=== PATIENT | male | born 1940 | race Caucasian/White ===

== ENCOUNTER → 2017-10-05 07:37 | Outpatient (CLI) | payer MEDICARE, SELFPAY ==
[2017-09-06 11:06] LABS: Hemoglobin 12.3 g/dl (13.0-16.5); Mean Corp Hgb Conc 34.2 g/gl (32-36); Mean Corpuscular Hgb 30.9 pg (27.0-32.0); Mean Corpuscular Volume 90.5 fL (80-94); Mean Platelet Vol. 10.5 fl (6.2-12.0); Platelet Count 105 K/mm3 (150-450); RBC Distribution Width CV 14.1 % (11.6-14.6); RBC Distribution Width SD 46.5 fl (35.1-43.9); Red Blood Count 3.98 M/mm3 (4.6-6.2)
[2017-09-06 11:08] LABS: Scan Indicated on CBC? Y/N NO
== END ==
PROVIDERS: Family Provider Internal Medicine; PCP Internal Medicine; Visit Provider Surgery
DX: Z01.810 Encounter for preprocedural cardiovascular examination (principal); Z53.9 Procedure and treatment not carried out, unspecified reason
CPT/HCPCS: 36415; 85027; 93005

== ENCOUNTER 2017-10-13 10:00 | Day surgery (SDC) | payer MEDICARE, SELFPAY ==
[2017-10-13 10:21] VITALS: BP 143/84; PULSE 75; RESP 16; TEMP 36.9; O2SAT 100; BMI 23.9
--- NOTE | 2017-10-13 11:30 | RAD_ITS ---
STUDY: ERCP. REASON FOR EXAM: Male, 77 years old. History of choledocholithiasis. FLUOROSCOPY TIME (if supplied): (12:28) minutes/seconds TECHNIQUE: An ERCP was performed by the surgeon. Contrast was injected into the common bile duct. COMPARISON: None. FINDINGS: There is dilatation of the common bile duct as well as the central intrahepatic biliary ducts. Filling defects are seen within the common bile duct suggestive of retained stones. No contrast is seen within the duodenum. RAD/ERCP Biliary Only IMPRESSION: Dilated common bile duct and visualized central intrahepatic biliary ducts with the filling defects in the common bile duct. This is in keeping with retained stones. Electronically Signed: Nicola Vergara MD at 14:29 EDT Tel [phone], Service support ,
[2017-10-13 12:41] VITALS: BP 119/96; BP 143/84; PULSE 82; RESP 16; TEMP 36.2; O2SAT 99
[2017-10-13 12:45] VITALS: BP 112/99; BP 143/84; PULSE 84; RESP 16; O2SAT 99
[2017-10-13 13:00] VITALS: BP 113/72; BP 143/84; PULSE 66; RESP 16; O2SAT 100
--- NOTE | 2017-10-13 13:03 | PCM.DC ---
You will use the following diet at home:: No restrictions Your food should be the consistency of: Regular Discharge Activity: Return to Normal Activity Call your doctor if you observe: Fever of 101 or Higher, Uncontrolled pain Allergies/Adverse Reactions: Allergies No Known Allergies Allergy (Verified 10/11/17 15:16) Medications to take at Discharge Pediatric Multivit Comb No.101 [Gummy] 1 ea PO DAILY 09/02/17 calcium carbonate 600 mg calcium (1,500 mg) tablet 600 mg PO QDAY tab 10/11/17 ergocalciferol (vitamin D2) 2,500 unit capsule 2,500 unit PO QDAY 10/11/17 Acetaminophen [Tylenol Extra Strength] 500 - 1,000 mg PO Q6H PRN PRN 10/12/17 Ondansetron [Zofran Odt] 4 mg PO Q8H PRN PRN 10/13/17 Prochlorperazine Maleate [Compazine] 10 mg PO Q6H PRN 10/13/17 Primary Care Physician: Andra Dasilva MD [Primary Care Provider] -
[2017-10-13 13:13] VITALS: BP 124/81; BP 143/84; PULSE 61; RESP 16; TEMP 36.2; O2SAT 100
--- NOTE | 2017-10-13 13:33 | PCM.OPRPT ---
Problem List (1) Cholelithiasis with choledocholithiasis Status: Acute Report of Operation Date of Procedure: 10/13/17 Pre-Operative Diagnosis: Common bile duct filling defect Post-Operative Diagnosis: Choledocholithiasis Surgery/Procedure Performed:: ERCP with sphincterotomy and stone removal Specimen's removed: None Description of Procedure: After describing the risks of the procedure as well as the procedure in detail informed consent was obtained. Patient was brought to the operating room and general anesthesia was induced. The patient was then placed in a semi-prone position. Next, the side-viewing endoscope was placed into the mouth and down into the stomach and advanced into the duodenum. The ampulla was located. A sphinctertome was used to cannulate the common bile duct and location was confirmed on fluoroscopy. The guidewire was placed in the common bile duct and using sphincterotome and electrocautery a sphincterotomy was performed. Hemostasis was good. Next the sphincterotome was removed leaving the guidewire in the common bile duct. A balloon was then introduced over the guidewire and the common bile duct and several sweeps were performed. There appear to be a very large stone in the distal common bile duct. This was freely mobile. I was unable to remove the stone with the balloon. I placed the trapezoid basket into the bile duct and grasped the stone. This was unable to be removed fully so we did a lithotripsy mechanically. There were several large fragments of the stone which were removed with the basket. Next a 15 mm balloon was placed into the bile duct and several sweeps were performed to clear the debris and leftover stone material. There were several large fragments of stone as well as small fragments that were removed from the bile duct. There was free flow of bile the end of the procedure with no extravasation of contrast. Once the duct was adequately clear of stones, the balloon was removed as well as the guidewire. The side-viewing scope was then withdrawn back into the stomach and the stomach was suctioned. Next, the scope was removed. The patient was taken to PACU in stable condition. The patient tolerated the procedure well. - Admit VTE Documentation VTE Mechan Device Prophylaxis: SCD's
== END 2017-10-13 13:53 | disposition home or self-care (01) ==
LOC: EN 10:01 → AC 10:03
PROVIDERS: Family Provider Internal Medicine; PCP Internal Medicine; Visit Provider Surgery
PROC: (CPT 43260; principal; 2017-10-13 11:00)
DX: K80.51 Calculus of bile duct without cholangitis or cholecystitis with obstruction (principal); I10 Essential (primary) hypertension; R93.2 Abnormal findings on diagnostic imaging of liver and biliary tract; K82.8 Other specified diseases of gallbladder
CPT/HCPCS: 43262; 43264; 74328; 76000; J7120; C1726

== ENCOUNTER 2017-10-19 12:33 | Observation (INO) | payer MEDICARE, SELFPAY ==
[2017-10-19] VITALS (8 sets, daily range): BP systolic 129–163; BP diastolic 71–98; PULSE 60–72; RESP 14–18; TEMP 36.4–37.5; O2SAT 95–100; BMI 23.9; BMI 22.6
--- NOTE | 2017-10-19 | IMM_PTH ---
PATIENT: NYA ALATORRE LOC: MS3 U#:[id number] AGE/SX: 77/M ROOM: TX316 RE10/19/[address]: Dr. Kaiden Erazo MD : 1940 BED: 1 DIS: 10/20/2017 SPEC #: [id number] RECD: 10/20/17 11:17 STATUS: JUAN ALBERTO REQ #: [id number] COLBY: 10/19/17 00:[address]: Kaiden Erazo DEPT: IMMUNOHISTOCHEMISTRY RECD BY: Bernadine Trivedi ENTERED: 10/20/17 11:19 SP TYPE: IMMUNO OTHR DR: Dr. Andra Dsailva MD Tissues: Gallbladder, NOS Procedures: NAPSIN A (add) HEP PAR (add) KI-67 (add) P53 (add) TTF1 (add) Pankeratin (add) GATA3 (add) CK7 (initial) PHYSICIAN & INSTITUTION [place] [phone] SPECIMEN INFORMATION: Tissue Source: Gallbladder biopsy Clinical Info: Choledocholithiasis, porcelain gallbladder Specimen Number: [id number] CPT code: 95105, 42651 x7 METHODOLOGY: Deparaffinized sections of prefer/formalin-fixed tissue or PAP/DQ stained slides are incubated with monoclonal/polyclonal antibodies/oligonucleotide probes. Localization is made via biotin free immunoperoxidase method. Appropriate controls are performed and reacted as expected. Results on target cell population are indicated in the following table: RESULTS: ANTIBODY / CLONE RESULT CK7 (OV-TL12/30) positive AE1-3 (AE1/AE3/PCK26) positive GATA3 (L50-823) negative TTF-1 (8G7G3/1) negative Napsin A (Rabbit Polyclonal) negative P53 (DO-7) negative Ki-67 (30-9) negative HepPar (OCh1E5) negative These tests were developed and their performance characteristics determined by [facility]. They may not have been cleared or approved by the U.S. Food and Drug Administration. The FDA has determined that such clearance or approval is not necessary. INTERPRETATION: Gallbladder, biopsy: Consistent with ductular proliferation of liver. AM:jh 10/22/17
--- NOTE | 2017-10-19 | GALL_PTH ---
PATIENT: NYA ALATORRE LOC: MS3 U#:[id number] AGE/SX: 77/M ROOM: VT316 RE10/19/[address]: Dr. Kaiden Erazo MD : 1940 BED: 1 DIS: 10/20/2017 SPEC #: [id number] RECD: 10/19/17 11:15 STATUS: JUAN ALBERTO REKendrick #: [id number] COLBY: 10/19/17 00:[address]: Kaiden Erazo DEPT: SURGICAL PATHOLOGY RECD BY: Bernadine Trivedi ENTERED: 10/19/17 11:42 SP TYPE: EMY RAGSD[place] DR: Dr. Andra Dasilva MD Tissues: Gallbladder, NOS Procedures: PAS with Diastase (control) Frozen Section (charge) Special Stain Group II PAS Stain (control) Surgery Specimen Level IV Frozen (no charge) HEADER OPERATION: Exploratory laparoscopy, gallbladder biopsy PRE-OP DIAGNOSIS: Choledocholithiasis, porcelain gallbladder TISSUE SUBMITTED: Gallbladder biopsy sent to path 1111 FROZEN SECTION DIAGNOSIS Gallbladder, core biopsy: Benign glandular tissue adjacent to the liver parenchymal tissue. No obvious carcinoma is noted. SJ:jh 10/19/17 MICROSCOPIC DIAGNOSIS Gallbladder, core biopsy: Focal benign hepatic subcapsular ductular proliferation. Focal minimal chronic inflammation of hepatic parenchyma. Focal elastosis and fibrosis, inter hepato-cystic tissue. No evidence of malignancy. See comment. AM:jh 10/20/17 COMMENT Fragments of reactive hepatic parenchyma is adherent to the tissue and contains benign appearing subcapsular ductular proliferation. There is focal fibrosis and elastosis of tissue between the gallbladder wall and liver parenchyma. There is no evidence of malignancy. The tissue is insufficient for evaluation of gallbladder or hepatic parenchymal disease. Excisional biopsies and or cholecystectomy is recommended if clinically indicated.. Immunohistochemistry ([id number]) supports the above diagnosis and highlights hepatic subcapsular benign appearing ductular proliferation. PAS with and without diastase with matched controls were used in the evaluation of this case. Case has been reviewed in consultation with Dr. Kramer who concurs with the above diagnosis. IDC:SANDRO MICROSCOPIC DESCRIPTION Slides are reviewed. GROSS DESCRIPTION Received fresh for frozen section diagnosis labeled with the patient's name is a specimen designated gallbladder, possible cancer. The specimen consists of an elongated piece of batista-white soft tissue measuring 1.1 cm in length and 0.1 cm in diameter. The entire specimen is submitted for frozen section diagnosis in one cassette. / SANDRO:jh 10/19/17 TC:5 CPT: 01645, 82933, 09457 x2
[2017-10-19 09:36] LABS: Hematocrit 35.6 % (40-54); Hemoglobin 12.2 g/dl (13.0-16.5); Mean Corp Hgb Conc 34.3 g/gl (32-36); Mean Corpuscular Hgb 31.5 pg (27.0-32.0); Mean Platelet Vol. 10.6 fl (6.2-12.0); Platelet Count 98 K/mm3 (150-450); RBC Distribution Width CV 13.1 % (11.6-14.6); RBC Distribution Width SD 43.2 fl (35.1-43.9); Red Blood Count 3.87 M/mm3 (4.6-6.2); White Blood Count 4.4 K/mm3 (4.4-11.0)
[2017-10-19 09:37] LABS: Scan Indicated on CBC? Y/N NO
[2017-10-19] MEDS: Bupivacaine Mpf 0.5% 30 ML VIAL (11:49)
[2017-10-19] MEDS: 0.9% Normal Saline 1,000 ML 75 ML IV (13:33)
--- NOTE | 2017-10-19 16:18 | PCM.OPRPT ---
Problem List (1) Cholelithiasis with choledocholithiasis Status: Acute Report of Operation Date of Procedure: 10/19/17 Pre-Operative Diagnosis: Cholelithiasis and choledocholithiasis Post-Operative Diagnosis: Severely inflamed gallbladder, possible mass Surgery/Procedure Performed:: Exploratory laparoscopy with gallbladder biopsy Specimen's removed: Gallbladder biopsy Description of Procedure: The patient was brought back to the operating room and general anesthesia was induced. The abdomen was prepped and draped in the usual sterile fashion. An incision was made inferior to the umbilicus and deepened to the fascia. The fascia was grasped and elevated. The fascia was incised and the posterior rectus sheath and peritoneum were elevated and incised. A finger sweep was performed and a port was placed in the abdomen. The abdomen was insufflated to 14 mmHg. A scope was placed through this port and the abdomen was inspected. A subxiphoid 5 mm port was placed under direct visualization. The patient's right upper quadrant was severely inflamed and adherent. The anterior edge of the liver was being pulled down toward the gallbladder. I did see what appeared to be the dome of the gallbladder and I performed a core needle biopsy with the Boo-Cut biopsy needle and sent this for frozen. He came back as inflammation. I then decided to take down some of the omentum that was covering the gallbladder. I used the harmonic scalpel to remove some of the omentum. I left the adherent omentum on the gallbladder and remove what I could. I worked my way down until I encountered the duodenum and stomach tightly adherent to the gallbladder. At this point I asked Dr. Cardoso to take a look as well and he agreed that the procedure should be aborted for risk of injury to the stomach or small bowel the patient to be transferred to tertiary care center. I agree as if this is malignancy he would need liver bed resection, possible gastrectomy, and possible Whipple. At that point I clearly saw the duodenum and stomach and neither appear to be injured. I did leave a TIMOTHY drain in case an occult injury was performed. Next the patient's abdomen was desufflated and the anterior fascia was closed with a [id number] 0 Vicryl suture. The other incisions were anesthetized with Marcaine and closed with interrupted 4-0 Monocryl sutures, Steri-Strips and bandages. The patient tolerated the procedure well. He will be admitted for short-term observation tonight and discharge home tomorrow with a drain in place and told to follow-up with Dr. Kirkpatrick at [facility] for further surgery. - Admit VTE Documentation VTE Mechan Device Prophylaxis: SCD's
--- NOTE | 2017-10-19 16:25 | OP.PCM_ITS ---
Problem List (1) Cholelithiasis with choledocholithiasis Status: Acute Report of Operation Date of Procedure: 10/19/17 Pre-Operative Diagnosis: Cholelithiasis and choledocholithiasis Post-Operative Diagnosis: Severely inflamed gallbladder, possible mass Surgery/Procedure Performed:: Exploratory laparoscopy with gallbladder biopsy Specimen's removed: Gallbladder biopsy Description of Procedure: The patient was brought back to the operating room and general anesthesia was induced. The abdomen was prepped and draped in the usual sterile fashion. An incision was made inferior to the umbilicus and deepened to the fascia. The fascia was grasped and elevated. The fascia was incised and the posterior rectus sheath and peritoneum were elevated and incised. A finger sweep was performed and a port was placed in the abdomen. The abdomen was insufflated to 14 mmHg. A scope was placed through this port and the abdomen was inspected. A subxiphoid 5 mm port was placed under direct visualization. The patient's right upper quadrant was severely inflamed and adherent. The anterior edge of the liver was being pulled down toward the gallbladder. I did see what appeared to be the dome of the gallbladder and I performed a core needle biopsy with the Boo-Cut biopsy needle and sent this for frozen. He came back as inflammation. I then decided to take down some of the omentum that was covering the gallbladder. I used the harmonic scalpel to remove some of the omentum. I left the adherent omentum on the gallbladder and remove what I could. I worked my way down until I encountered the duodenum and stomach tightly adherent to the gallbladder. At this point I asked Dr. Cardoso to take a look as well and he agreed that the procedure should be aborted for risk of injury to the stomach or small bowel the patient to be transferred to tertiary care center. I agree as if this is malignancy he would need liver bed resection , possible gastrectomy, and possible Whipple. At that point I clearly saw the duodenum and stomach and neither appear to be injured. I did leave a TIMOTHY drain in case an occult injury was performed. Next the patient's abdomen was desufflated and the anterior fascia was closed with a [id number] 0 Vicryl suture. The other incisions were anesthetized with Marcaine and closed with interrupted 4-0 Monocryl sutures, Steri-Strips and bandages. The patient tolerated the procedure well. He will be admitted for short-term observation tonight and discharge home tomorrow with a drain in place and told to follow-up with Dr. Kirkpatrick at [facility] for further surgery. - Admit VTE Documentation VTE Mechan Device Prophylaxis: SCD's
--- NOTE | 2017-10-19 16:26 | CHAPLAIN ---
Type of Pastoral Visit _x__ Initial Visit ___ Follow-up Visit ___ On-call Visit ___ General Patient Visit ___ Spiritual Assessment ___ Family Conference ___ Bereavement ___ Rapid Response ___ Code Blue ___ Other (describe below) Pastoral Care Referral From _x__ Patient ___ Family ___ Nurse ___ Physician ___ Glass Cleaning Machine Tender ___ Fitting Room Operator ___ Other (describe below) Sacrament/Intervention _x__ Active listening ___ Anointing ___ Amish ___ Bereavement ___ Communion ___ Caitlyn exploration ___ ___ Life review _x__ Prayer ___ Reconciliation ___ Sacrament of Sick _x__ Supportive presence ___ Wedding ___ Other (describe below) Pastoral Comments
[2017-10-20 01:58] VITALS: BP 161/97; PULSE 75; RESP 16; TEMP 36.7; O2SAT 96
[2017-10-20] MEDS: 0.9% Normal Saline 1,000 ML 75 ML IV (02:05)
[2017-10-20 05:47] LABS: Absolute Lymphocyte Count 0.61 X10^3/ul (0.83-4.51); Absolute Neutrophil Count 5.8 X10^3/uL (2.0-7.7); Eosinophil# 0.02 X10^3/uL; Eosinophils% 0.3 % (0-5); Hematocrit 34.1 % (40-54); Hemoglobin 12.1 g/dl (13.0-16.5); Lymphocyte # 0.61 X10^3/ul (4.0); Lymphocyte % 8.4 % (19-41); Mean Corp Hgb Conc 35.5 g/gl (32-36); Mean Corpuscular Volume 90.2 fL (80-94); Mean Platelet Vol. 10.9 fl (6.2-12.0); Monocyte# 0.81 X10^3/uL; Monocyte% 11.2 % (0-10); Neutrophil # 5.77 X10^3/uL (2.7-7.7); Neutrophil % 79.7 % (47-70); Platelet Count 102 K/mm3 (150-450); RBC Distribution Width CV 13.1 % (11.6-14.6); RBC Distribution Width SD 42.1 fl (35.1-43.9); Red Blood Count 3.78 M/mm3 (4.6-6.2); White Blood Count 7.2 K/mm3 (4.4-11.0)
[2017-10-20 06:05] LABS: POSITIVE COUNT NO; POSITIVE DIFFERENTIAL NO; POSITIVE MORPHOLOGY NO
--- NOTE | 2017-10-20 06:07 | PCM.DC.SUM ---
Discharge Date and Diagnosis Date of Admission: 10/19/17 Date of Discharge: 10/20/17 - Secondary Discharge Diagnosis Chronic Problems (Last Updated 10/11/17 @ 15:15 by Yessi Bowers) Chronic lymphocytic leukemia (Chronic) Neoplasm of unspecified behavior of bone, soft tissue, and skin (Chronic) 3 cm lesion left medial cheek 6 cm lesion right lateral cheek Hospital Course and Treatment Operations: - - Laparoscopy Procedures: None Summary of Care Provided: The patient is a 77 year old M who recently had ERCP for a large stone in his common bile duct. He was brought back for laparoscopic cholecystectomy. Preoperative imaging showed possible mass and porcelain gallbladder but the patient did not want to go to [place]. On exploratory laparoscopy is unable to separate the stomach and duodenum from the gallbladder and the gallbladder is very contracted. This represented either severe inflammation and contraction around the stone or mass. I left a drain and aborted the procedure and recommend that he go see Dr. Kirkpatrick at [facility] for this. The patient was admitted after surgery and the following morning his drain was still serosanguineous and so he was discharged home to follow-up on Wednesday for drain removal. Discharge Diet: Light diet - advance as tolerated Discharge Activity: Return to Normal Activity, May Not Drive - for 2-3 days or while taking narcotic pain medicataions., - - Do not drive, work heavy equipment or sign legal documents for 24 hours. May shower in (days): 1 - with the bandage in place. Additional Activity Instructions:: Pain medication may cause nausea. You should typically eat light foods as you take your pain medications. Pain medication may also cause constipation. If this is a problem for you, please discuss with your doctor. Call your doctor if your incision/area has: Continuous Slow Oozing, Sudden Increased Bleeding, Increased Pain/ Swelling, Increased Redness, Foul Smelling Discharge, Fever of 101 or Higher Call your doctor if you observe: Fever of 101 or Higher Suture Line Care: Avoid Pulling/Pushing, Avoid Pinching/Bending Drain: Suction Additional Dressing/Incision Instructions:: Leave operative bandaids on for 2 days. When you remove dressing, leave Steri-Strips on until your follow-up appointment, or until the Steri-Strips fall off on their own. Home Medications: Medications to take at Discharge Pediatric Multivit Comb No.101 [Gummy] 1 ea PO DAILY 09/02/17 calcium carbonate 600 mg calcium (1,500 mg) tablet 600 mg PO QDAY tab 10/11/17 ergocalciferol (vitamin D2) 2,500 unit capsule 2,500 unit PO QDAY 10/11/17 Acetaminophen [Tylenol] 500 - 1,000 mg PO Q6H PRN PRN 10/12/17 Ondansetron [Zofran Odt] 4 mg PO Q8H PRN PRN 10/13/17 Prochlorperazine Maleate [Compazine] 10 mg PO Q6H PRN 10/13/17 Hydrocodone Bitart/Apap 5-325 [[place] 5/325] 1 - 2 tablet PO Q4H PRN PRN 3 Days #10 tablet 10/20/17 Following Prescrptions Were Given to Patient: Hydrocodone Bitart/Apap 5-325 [[place] 5/325] 1 - 2 tablet PO Q4H PRN PRN 3 Days #10 tablet PRN Reason: Severe Pain (-03/09) Primary Care Physician: Andra Dasilva MD [Primary Care Provider] - Please Follow Up With: Kaiden Erazo MD When: call to make appt for wednesday for drain removal [phone] Please Follow Up With: Daniel Kirkpatrick When: Ricardo Mathews, appointment made for 11/02/2017 at 1:30 Medical Necessity - Tobacco Use Smoking Status: Never smoker Meaningful Use Info Meaningful Use Diagnoses (Choose all that apply): None applicable
[2017-10-20 06:48] LABS: ALB/GLOB Ratio 1.1 RATIO (0.9-2.4); AST(SGOT) 19 U/L (15-37); Alanine Aminotransfer ALT/SGPT 52 U/L (16-61); Albumin, Serum 3.2 g/dL (3.2-5.0); Alkaline Phosphatase 238 U/L (45-117); Anion Gap 7 (5-15); BUN 11 mg/dL (7-18); Calcium,Total 8.3 mg/dL (8.5-10.1); Chloride 106 mmol/L (98-107); Creatinine, Serum 0.78 mg/dL (0.70-1.30); EST Glomerular Filtration Rate 103 mL/min (>60); Est Glom Filt Rate - Afr Amer 124 mL/min (>60); Estimated Creatinine Clearance 61.03 ml/min; Globulin 2.9 g/dL (2.2-4.2); Glucose 132 mg/dL (74-106); Potassium 3.6 mmol/L (3.5-5.1); Protein, Total 6.1 g/dL (6.4-8.2); Sodium Level 138 mmol/L (136-145)
[2017-10-20 09:16] VITALS: BP 146/89; PULSE 77; RESP 18; TEMP 36.5; O2SAT 95
== END 2017-10-20 10:51 | disposition home or self-care (01) ==
LOC: MS3 12:55
PROVIDERS: Anesthesiology; Admitting Provider Surgery; Family Provider Internal Medicine; PCP Internal Medicine; Visit Provider Surgery
PROC: (CPT 47610; principal; 2017-10-19 10:40)
DX: K80.62 Calculus of gallbladder and bile duct with acute cholecystitis without obstruction (principal); C91.10 Chronic lymphocytic leukemia of B-cell type not having achieved remission; L98.9 Disorder of the skin and subcutaneous tissue, unspecified; Z79.899 Other long term (current) drug therapy; Z92.21 Personal history of antineoplastic chemotherapy; I10 Essential (primary) hypertension; R93.2 Abnormal findings on diagnostic imaging of liver and biliary tract; K82.8 Other specified diseases of gallbladder; K80.51 Calculus of bile duct without cholangitis or cholecystitis with obstruction
CPT/HCPCS: 49321; 36415; 80053; 85025; 85027; 88304; 88305; 88313; 88331; 88341; 88342; 96360; 96361; 97802; 99218; J7030; J7120; G0378; G0379

== ENCOUNTER 2018-12-02 05:38 | Day surgery (SDC) | payer MEDICARE, SELFPAY ==
[2018-11-09 11:45] VITALS: BMI 24.5
[2018-12-02] VITALS (7 sets, daily range): BP systolic 120–160; BP diastolic 71–111; PULSE 62–80; RESP 16–18; TEMP 36.3–36.8; O2SAT 96–100; BMI 25.7
--- NOTE | 2018-12-02 | LES_PTH ---
PATIENT: NYA ALATORRE [place] [facility] [place] U[place][id number] AGE/SX: 78/M ROOM: RE12/02/[address]: Dr. Nya Dickerson MD : 1940 BED: DIS: 12/02/2018 SPEC #: [id number] RECD: 12/02/18 08:03 STATUS: JUAN ALBERTO AVE #: [id number] COLBY: 12/02/18 00:[address]: Nya Dickerson DEPT: SURGICAL PATHOLOGY RECD BY: Bernadine Trivedi ENTERED: 12/02/18 09:12 SP TYPE: Lesion OTHR DR: Dr. 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 Lesion left medial cheek, biopsy: Squamous cell carcinoma in situ. SJ:jh 12/02/18 MICROSCOPIC DIAGNOSIS A. Lesion left medial cheek, biopsy: Squamous cell carcinoma in situ (1.7 cm in greatest width). Extensive ulceration and associated inflammation. B. Lesion right lateral cheek, shave biopsy: Actinic keratosis with moderate atypia. Negative for malignancy. C. Squamous cell carcinoma in situ, left medial cheek: Squamous cell carcinoma in situ (1.4 cm in greatest width), completely excised. Focal ulceration and associated inflammation. Actinic keratosis. SANDRO:jh 12/05/18 COMMENT Case has been reviewed in consultation with Dr. Braxton who concurs with the above diagnosis. IDC:AM MICROSCOPIC DESCRIPTION Slides are reviewed. GROSS DESCRIPTION A - Received fresh for frozen section diagnosis labeled with the patient's name is a specimen designated lesion left medial cheek. The specimen consists of a piece of round brown skin measuring 3 x 3.5 x 0.6 cm. The skin surface shows extensive ulceration and scab formation. The specimen is oriented by a suture at 12 o'clock position. The specimen is inked as follows: 12 to 3 o'clock - black, 3 to 6 o'clock - blue, 6 to 9 o'clock - green, 9 to 12 o'clock - yellow and deep margin - red. The entire specimen is submitted as follows: 1-3 - frozen section, 4 - scab. / SJ: 12/02/18 B - Received in fixative is one container labeled with the patient's name and designated lesion right lateral cheek. The specimen consists of one irregular fragment of light batista soft tissue that measures 0.5 x 0.2 x <0.1 cm. The specimen is totally submitted in one cassette. / AM: 12/02/18 C - Received in fixative is one container labeled with the patient's name and designated squamous cell carcinoma in situ left medial cheek, suture at 12 o'clock. The specimen consists of one irregular fragment of light batista excised skin that measures 6.5 x 3.2 cm and a depth of excision measuring 0.5 cm. The specimen contains a hole in the center measuring 3 cm in diameter. A suture is present along one edge signifying the 12 o'clock position. The specimen is inked as follows: entire deep surface - black, 12?o'clock - red, 3 o'clock - yellow, 6 o'clock - orange and 9 o'clock - green. The edge of the inside of the hole is inked in blue ink. The cutaneous surface adjacent to the hole contains a plaque-like lesion measuring 1 x 0.5 cm. The specimen is serially sectioned and totally submitted in six cassettes. / AM:jh 12/02/18 TC:0 CPT: 68709 x2, 74216, 93368 x2
--- NOTE | 2018-12-02 00:05 | HP.PCM_ITS ---
History and Physical Date of Admission: 12/02/18 HISTORY OF PRESENT ILLNESS 78 year old man presents for evaluation for a TBSE. He was recently treated for CLL and is in remission at the present time. He had lesions on his left medial cheek and right lateral cheek that had increased in size over the last several months and developed some crusting and scabbing after starting treatment for CLL. He initially tried Aldara cream for treatment because we had to wait on surgery because of his CLL treatment. He stopped the Aldara during treatment because he had trouble tolerating it. Since he finished the treatment for CLL, the right lateral cheek remained unchanged but the left medial cheek lesion developed increased scabbing and crusting on the medial aspect of the lesion. He denies any fever. He denies any trauma. He denies any recent infection. He presents at this time for further evaluation and treatment. PAST MEDICAL HISTORY Cholelithiasis Leukemia Thrombocytopenia Hypertension PAST SURGICAL HISTORY ERCP ALLERGIES No Known Allergies MEDICATIONS Pediatric Multivitamin Acetaminophen [Tylenol] FAMILY HISTORY Mother - Myocardial infarction, Hypertension Father - Heart disease Sister - Breast cancer Other - Diabetes SOCIAL HISTORY Smoking Status: Never smoker alcohol intake: never substance use type: does not use REVIEW OF SYSTEMS General - Denies fever and weight loss. Has some fatigue. ENT - Denies nasal congestion and sore throat. Eyes - Denies cataracts and glaucoma. Endocrine - Denies excessive thirst or urination. Skin - Enlarging crusting scabbing lesion left medial cheek and lesionright lateral cheek. Musculoskeletal - Denies joint pain, joint stiffness, weakness of muscles and joints, back pain, and arthritis. Neuro - Denies headaches. Cardiovascular - Denies chest pain. Denies shortness of breath with exertion. Denies fatigue. Psych - Denies anxiety and depression. Respiratory - Denies cough and shortness of breath. Gastrointestinal - Denies nausea, vomiting, diarrhea, and constipation. Hematologic - Denies abnormal bruising and bleeding. Has CLL. Genitourinary - Denies hematuria and urinary frequency. PHYSICAL EXAMINATION General - Alert and oriented. HEENT - PERRL. EOMI. Throat is clear. On the left medial cheek is a 5 cm crusting scabbing lesion. Has irregular borders. No ulceration. Lesion is nontender. Looks actinic in nature, but the area on the medial aspect of the lesion has developed a cutaneous horn component with crusting and scabbing. On the right lateral cheek is a 6 cm crusting scabbing lesion. Has irregular borders. No ulceration. Lesion is nontender. Looks actinic in nature. Hasn't changed since his visit in 05/16. Neck - Supple and nontender. No cervical adenopathy. No suspicious lesions noted. Lungs - Clear to auscultation. Heart - Regular rate and rhythm. Abdomen - Soft and nondistended. No suspicious lesions noted. Extremities - No clubbing, cyanosis,or edema. Radial pulses are palpable. No suspicious lesions noted. Neuro - Cranial nerves II - XII grossly intact. ASSESSMENT 1. 5 cm lesion left medial cheek with cutaneous horn component. 2. 6 cm lesion right lateral cheek. 3. CLL, currently in remission. PLAN Recommend excision of the cutaneous horn component of the left medial cheek lesion. It will be a full thickness excision. Will send the lesion to Pathology for analysis to rule out carcinoma. If carcinoma is present or if actinic damage is present, will excise the entire lesion with skin grafting. If the pathology is benign, then will skin graft the defect and excise the rest of the lesion in an intradermal fashion. Will also excise the right lateral cheek lesion in an intradermal fashion. Will send to Pathology for analysis to rule out carcinoma. If carcinoma is present or actinic damage is present, then will excise the rest of the lesions with skin grafting. That would be done at a separate procedure. Since the CLL is in remission at this time, now is a good time to proceed with the surgery. Depending on the size of the defect for skin grafting, additional skin grafting would be taken below the clavicle such as the abdominal wall. Skin below the clavicle may heal with a skin color discrepancy. They are aware of that possibility and voice understanding and wish to proceed. Surgery would be under local anesthesia and IV sedation on an outpatient basis. Patient was informed of the risks and complications of the procedure including alternatives to surgery. These were discussed with him personally. He voices understanding and wishes to proceed. Some of the risks and complications were included in a form from the [employer].
[2018-12-02] MEDS: Mupirocin Ointment 22gm Tube 1 APPLIC (07:06)
[2018-12-02] MEDS: Silver Nitrate (BKC) 1 EACH (10:00)
--- NOTE | 2018-12-02 10:39 | PCM.OPRPT ---
Report of Operation Date of Procedure: 12/02/18 Pre-Operative Diagnosis: 1. 5 cm lesion left medial cheek with cutaneous horn component. 2. 6 cm lesion right lateral cheek. 3. CLL, currently in remission. Post-Operative Diagnosis: 1. 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 2. 1.5 cm lesion right lateral cheek. 3. CLL, currently in remission. Surgery/Procedure Performed:: 1. 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 2. Intradermal excision 1.5 cm lesion right lateral cheek. Description of Surgical Findings:: 78 year old man presents for evaluation for a TBSE. He was recently treated for CLL and is in remission at the present time. He had lesions on his left medial cheek and right lateral cheek that had increased in size over the last several months and developed some crusting and scabbing after starting treatment for CLL. He initially tried Aldara cream for treatment because we had to wait on surgery because of his CLL treatment. He stopped the Aldara during treatment because he had trouble tolerating it. Since he finished the treatment for CLL, the right lateral cheek remained unchanged but the left medial cheek lesion developed increased scabbing and crusting on the medial aspect of the lesion. He denies any fever. He denies any trauma. He denies any recent infection. Patient was informed of the risks and complications of the procedure including alternatives to surgery. These were discussed with the patient personally. Patient voices understanding and wishes to proceed. Some of the risks and complications were included in a form from the [employer] [place] [employer] [employer]. Frozen section lesion left medial cheek - squamous cell carcinoma in situ. Size of skin graft left medial cheek - 7 x 5 cm. 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 Cutaneous horn lesion left medial cheek to Pathology as a frozen section. 2. Lesion right lateral cheek to Pathology. 3. Squamous cell carcinoma in situ left medial cheek to Pathology. Drains: None. Estimated Blood Loss (mL): 50 ml. Description of Procedure: Patient was taken to OR in supine position and was placed under general anesthesia. The face and neck and abdominal wall and flank areas were prepped and draped in the usual fashion. SCD's were placed for DVT prophylaxis. Perioperative antibiotics were given intravenously. Using xylocaine with epinephrine, the lesions left medial cheek and right lateral cheek were infiltrated. After waiting 5 minutes for the anesthetic to take effect, I proceeded with excision of the lesion showing the cutaneous horn component in a circular fashion down into the subcutaneous tissue. A suture was marked at the 12 oclock position for pathology orientation. The lesion was sent to Pathology as a frozen section for analysis to rule out carcinoma. Frozen section showed a squamous cell carcinoma in situ. So the rest of the lesion will be excised with a 1 cm margin in all directions. The re-excision extended into the subcutaneous tissue. A suture was marked at the 12 oclock position for pathology orientation. The lesion was then sent to Pathology for analysis to rule out carcinoma at the margins. The size of the left cheek defect for skin grafting was 7 x 5 cm or 35 cm2. The size of the defect is too large to use the neck as the donor area. I discussed with the patient preoperatively that if we need to take skin from below the clavicle, there may be a color match discrepancy with healing of the skin graft. He was aware of that possibility and wished to proceed. Therefore, I designed an ellipse of skin in the left flank area and infiltrated the markings with xylocaine and epinephrine. Incisions were made down into the subcutaneous tissue. The subcutaneous tissue was removed from the undersurface of the dermis thus fashioning a full thickness skin graft. The skin graft was placed in saline. Some additional subcutaneous tissue was removed from the donor incision to aid in wound closure. Hemostasis was obtained with electrocautery. The wound was irrigated with saline. The donor incision was closed in a layered fashion with 3-0 Monocryl simple running suture for the Jose Alejandro's fascial layer. The deep dermis and subcutaneous tissue was approximated with 3-0 Monocryl interrupted sutures. The skin was approximated with 3-0 V lock unidirectional barbed running subcuticular suture. Antibiotic ointment was applied to the suture line followed by Kerlix gauze dressing. The full thickness skin graft was then placed on the left cheek defect and secured to the skin edge with 3-0 Chromic simple interrupted sutures. 3-0 Chromic interrupted sutures were used for central quilting stabilization. Antibiotic ointment was applied to the skin graft followed by Xeroform gauze and cotton balls soaked in saline. The skin graft dressing was secured with 4-0 Nylon tie over stent suture dressing. I then addressed the right lateral cheek lesion. Most of the lesion was easily rubbed off the skin as residual skin. The skin appeared normal except for a much smaller area of erythema and irregular borders. This smaller lesion measured 1.5 cm. This lesion was excised in an intradermal fashion and sent to Pathology for analysis to rule out carcinoma. Hemostasis was obtained with gentle pressure and silver nitrate chemical cauterization. Antibiotic ointment was applied to the wound. Patient tolerated the procedure well and was sent to PACU in satisfactory condition. Patient will be sent home on antibiotics and pain medication. He will keep his head elevated during the initial postoperative period. Patient will followup in a week for a wound check and removal of the skin graft dressing and for discussion of the pathology report. If the lesion right lateral cheek shows actinic damage or carcinoma, will need additional surgery with excision followed by skin graft or skin flap reconstruction. Grafts/Implants Used: None. - Complications None. - Admit VTE Documentation VTE Present on Admission: No VTE Mechan Device Prophylaxis: SCD's VTE Pharm Prophylaxis ordered?: No Code Visit Surgery Charges CPT - 57408 ICD-10 - D04.30, C91.11 30864 D04.30, C91.11 01509 D04.30, C91.11 21653 D49.2, Z85.828, C91.11
--- NOTE | 2018-12-02 10:50 | DCINST_ITS ---
You will use the following diet at home:: No restrictions Discharge Activity: May not drive while taking narcotic pain medications., May Not Shower - until the skin graft dressing is removed from the left cheek., - - keep head elevated. no heavy lifting. May shower in (days): 6 - may shower after the skin graft dressing left cheek is removed in the office. May resume sexual activity in: No Restrictions Ice area for (Minutes): 5 - as needed for facial swelling. Weight Bearing Status: Weight bearing as tolerated Lifting Restrictions: 10 lbs. Keep extremity elevated above heart level: - - elevate head. Call your doctor if your incision/area has: Continuous Slow Oozing, Sudden Increased Bleeding, Increased Pain/ Swelling, Increased Redness, Foul Smelling D ischarge, Swelling at the incision site Call your doctor if you observe: Fever of 101 or Higher, Coldness, Increased Pain, Shortness of breath, Chest pain, Calf discomfort, Uncontrolled pain Suture Line Care: - - after skin graft dressing removed in the office, apply antibiotic ointment to the skin graft daily. the left flank donor incision dressing can be removed in two days and apply antibiotic ointment to the suture line daily. Change Dressing in (Days):: 6 - will remove skin graft dressing left cheek in the office. Remove Dressing in (days):: 2 - left flank dressing only. Cleanse incision/area with: - - may get the incisions wet in the shower after the skin graft dressing left cheek has been removed in the office. Allergies/Adverse Reactions: Allergies No Known Allergies Allergy (Verified 11/23/18 08:52) Medications to take at Discharge Pediatric Multivitamin No.101 [Gummy] 1 ea PO DAILY 09/02/17 Acetaminophen [Tylenol] 500 - 1,000 mg PO Q6H PRN PRN 10/12/17 Clindamycin HCl [Cleocin] 300 mg PO TID #21 cap 12/02/18 Lactobacillus Acidophilus/Fos [Acidophilus Probiotic Tablet] 1 ea PO BID #15 tab 12/02/18 Oxycodone HCl/Acetaminophen [Percocet 5/325] 1 tab PO 4X/DAY PRN PRN 7 Days #30 tab 12/02/18 The following prescriptions were given: Lactobacillus Acidophilus/Fos [Acidophilus Probiotic Tablet] 1 ea PO BID #15 tab Prescription Printed Clindamycin HCl [Cleocin] 300 mg PO TID #21 cap Prescription Printed Oxycodone HCl/Acetaminophen [Percocet 5/325] 1 tab PO 4X/DAY PRN PRN 7 Days #30 tab PRN Reason: Pain Prescription Printed Primary Care Physician: Andra Dasilva MD [Primary Care Provider] - Test Results: Test results from this visit will be discussed in further detail at your follow- up appointment, if applicable. Please Follow Up With: Eliecer Dickerson MD When: one week. call [phone] for appt. Proposed Discharge Date: 12/02/18
[2018-12-02] MEDS: Acetaminophen 325 MG Tablet PO (12:00)
[2018-12-02] MEDS: oxyCODONE 5 MG Tablet PO (12:00)
== END 2018-12-02 12:24 | disposition home or self-care (01) ==
LOC: SDC 05:40 → AC 05:42
PROVIDERS: Family Provider Internal Medicine; PCP Internal Medicine; Referring Provider Surgery; Visit Provider Surgery
PROC: (CPT 11312; principal; 2018-12-02 07:15)
DX: C91.01 Acute lymphoblastic leukemia, in remission (principal); D04.30 Carcinoma in situ of skin of unspecified part of face; C91.11 Chronic lymphocytic leukemia of B-cell type in remission; L85.8 Other specified epidermal thickening; Z85.828 Personal history of other malignant neoplasm of skin; L57.0 Actinic keratosis; I10 Essential (primary) hypertension
CPT/HCPCS: 11312; 11646; 15240; 15241; 88305; 88331; 88332; J7120

== ENCOUNTER → 2021-12-11 | Outpatient (CLI) | payer MEDICARE, SELFPAY ==
[2021-12-11 08:15] VITALS: BP 136/71; PULSE 79; RESP 16; TEMP 36.8; O2SAT 100
[2021-12-11 08:42] VITALS: BP 125/66; PULSE 75; RESP 16; TEMP 36.9; O2SAT 100
[2021-12-11 09:37] VITALS: BP 118/67; PULSE 76; RESP 16; TEMP 37.1; O2SAT 100
[2021-12-11 10:10] VITALS: BP 129/73; PULSE 71; RESP 12; TEMP 37.3; O2SAT 96
[2021-12-11 10:31] VITALS: BP 119/74; PULSE 75; RESP 16; TEMP 37; O2SAT 100
[2021-12-11 10:46] VITALS: BP 127/72; PULSE 78; RESP 12; TEMP 37.1; O2SAT 100
== END | disposition home or self-care (01) ==
PROVIDERS: PCP Internal Medicine; Referring Provider Internal Medicine; Visit Provider Internal Medicine
DX: D64.9 Anemia, unspecified (principal); C90.00 Multiple myeloma not having achieved remission
CPT/HCPCS: 36415; 36430; 86850; 86900; 86901; 86920; 86922; J7030; P9016; A4216

== ENCOUNTER 2022-06-05 15:03 | Inpatient (IN) | payer MEDICARE, SELFPAY ==
[2022-06-05 15:05] VITALS: BP 99/78; PULSE 78; RESP 18; TEMP 36.6; O2SAT 99; BMI 17.2
[2022-06-05 17:13] LABS: Absolute Lymphocyte Count 58.79 X10^3/uL (0.83-4.51); Absolute Neutrophil Count 0.9 X10^3/uL (2.0-7.7); Basophil# 0.01 X10^3/uL; Eosinophil# 0.02 X10^3/uL; Hematocrit 29.6 % (40-54); Hemoglobin 7.3 g/dL (13.0-16.5); Lymphocyte # 58.79 X10^3/ul (0.83-4.51); Lymphocyte % 98.3 % (19-41); Mean Corp Hgb Conc 24.7 g/dL (32-36); Mean Corpuscular Hgb 20.4 pg (27.0-32.0); Mean Corpuscular Volume 82.7 fL (80-94); Monocyte% 0.2 % (0-10); NRBC Flagged by Analyzer 0.1 % (0-5); Neutrophil # 0.88 X10^3/uL (2.7-7.7); Neutrophil % 1.4 % (47-70); POSITIVE COUNT YES; POSITIVE DIFFERENTIAL YES; POSITIVE MORPHOLOGY YES; Platelet Count 125 K/mm3 (150-450); RBC Distribution Width CV 22.1 % (11.6-14.6); RBC Distribution Width SD 65.1 fl (35.1-43.9); Red Blood Count 3.58 M/mm3 (4.6-6.2)
--- NOTE | 2022-06-05 17:25 | EDS_ITS ---
HPI History of Present Illness Chief Complaint: Weakness Informant: patient Onset/Context/Timing Onset: Weeks (2) Context: Gradual Onset Timing: Continuous Quality: Weakness Location: Generalized Worsened by: Nothing Relieved by: Nothing Associated Symptoms Associated Symptoms: Decreased appetite Narrative Narrative: Patient presents with general weakness that has been getting worse over the past 2 weeks. Patient states he has had decreased appetite over the past 2 weeks. Patient states he feels weak all over. Patient states it is gradually getting worse. Family states patient is coughing up some sputum. Family states his mouth looks dry to them. Family is concerned over possible dehydration. Family states the patient has not eating and drinking much over the past couple weeks. Patient denies any fevers or chills. Patient admits to some blurred vision. Patient admits to nausea and vomiting. [facility] Medical History Cholelithiasis Hypertension Leukemia Thrombocytopenia Home Medications cholecalciferol (vitamin D3) 25 mcg (1,000 unit) tablet (Vitamin D3) 25 mcg PO DAILY SUPPLEMENT 06/05/22 [History Last Taken 06/04/22] lidocaine HCl 2 % mucosal solution (Lidocaine Viscous) 1 applic PO 4X/DAY PRN SORE MOUTH 06/05/22 [History Last Taken 06/04/22] Allergy/AdvReac Type Severity Reaction Status Date / Time No Known Allergies Allergy Verified 06/05/22 15:04 Family History Mother , AGE 76 [place] Myocardial infarction Hypertension Father Heart disease Sister Breast cancer Other Diabetes Surgical History No pertinent past surgical history S/P ERCP Social History Smoking Status: Never smoker alcohol intake: never substance use type: does not use additional social history: DOES NOT USE ASPIRIN DOES NOT USE IBUPROFEN ROS ROS ED Constitutional Constitutional ED: Denies chills or fever(s) Eyes Eyes: Reports blurry vision; Denies change in vision ENT ENT ED: Denies rhinorrhea or sore throat Cardiovascular Cardiovascular: Denies chest pain or palpitations Respiratory/Chest Respiratory/Chest: Reports cough; Denies dyspnea Gastrointestinal Gastrointestinal: Reports nausea and vomiting Genitourinary Genitourinary ED: Reports drinking/eating less; Denies dysuria Musculoskeletal Musculoskeletal: Reports neck pain; Denies back pain Integumentary Denies abscess or rash Neurologic Neurologic: Reports weakness; Denies headache(s) Allergic/Immunologic Allergic/Immunologic ED: Denies mouth swelling or urticaria EXAM Physical Exam Const Vital Signs: 06/05/22 15:05 06/05/22 17:00 06/05/22 20:00 Temperature 97.8 F 97.9 F Temperature Source Temporal Temporal Pulse Rate 78 61 Respiratory Rate 18 18 Respiratory Effort Normal Respiratory Pattern Normal Blood Pressure 99/78 124/72 H Blood Pressure Mean 85 89 Pulse Ox 99 94 Oxygen Delivery Method Room Air Room Air Positive cachectic General Appearance ED: cachectic and NAD Nutritional Appearance: cachectic HEENT Reports dry mucous membranes Mouth ED: Yes dry mucous membranes Mouth: dry mucous membranes Neck supple and no JVD Resp normal respiratory effort Auscultation: diminished lung sounds Cardio regular rate and regular rhythm GI normal to inspection, nondistended, normoactive bowel sounds and non-tender Palpation: soft Extremity normal to inspection General Extremety ED: Negative for edema or tenderness General Extremity: Negative for edema Neuro oriented x3, CN's II-XII intact bilaterally and no sensory deficits noted Sensorium / Orientation: alert Motor Exam: strength 5/5 throughout Psych mental status grossly normal Skin no rashes or lesions noted MDM MDM MDM Narrative Medical decision making narrative: EKG was obtained. On my interpretation, it shows a normal sinus rhythm with occasional PACs with a rate of 89. GA interval was within normal limits. QRS interval was normal. QTc interval was 489 ms. There is left axis deviation at -44 degrees. There are no acute ST or T wave changes. Portable chest x-ray was obtained. There is 1 view. On my interpretation, there are bilateral infiltrates. There is no pneumothorax. There is no cardiomegaly. Bony thorax is normal. Radiologist also interpreted the x-rays and agrees. CBC shows a leukocytosis of 59.8. Hemoglobin was 7.3 and hematocrit was 29.6. Platelets were 125. Basic metabolic profile showed a sodium of 159 and a chloride of 128. BUN was 51 and creatinine was 1.57. These were increased compared to previous results. Lactate was normal at 1.3. High-sensitivity troponin was normal at 13. Urinalysis does not show any evidence of urinary tract infection or hematuria. Patient was given IV fluids here. Blood cultures were obtained. Patient was started on Rocephin and Zithromax for the pneumonia. Case was discussed with the hospitalist. He recommended consultation with oncology. Case was discussed with Dr. Kirkpatrick. He recommended obtaining a CMP, LDH, and Aaron test. He also recommended doing a CT scan of the chest after he is rehydrated to check for mediastinal lymphadenopathy that may be causing his difficulty swallowing. He stated that CLL does not develop a blast crisis. Patient will be admitted to the hospital. Patient and family understood and were agreeable with the plan. All questions were answered. Lab Data Attestation: I reviewed the patient's lab results. Labs: Laboratory Results - last 24 hr 06/05/22 06/05/22 06/05/22 16:55 16:55 18:35 WBC 59.8 H* RBC 3.58 L Hgb 7.3 L Hct 29.6 L MCV 82.7 MCH 20.4 L MCHC 24.7 L RDW Std Deviation 65.1 H RDW Coeff of Florin 22.1 H Plt Count 125 L MPV TNP Immature Gran % (Auto) 0.100 Neut % (Auto) 1.4 L Lymph % (Auto) 98.3 H [place] % (Auto) 0.2 Eos % (Auto) 0.0 Baso % (Auto) 0.0 Absolute Neuts (auto) 0.9 L Absolute Lymphs (auto) 58.79 H Nucleated RBC % 0.1 Differential Comment SEE COMMENTS Diff Path Review May foll Platelet Estimate SLT DEC RBC Morphology N CHROM Anisocytosis RARE Microcytosis RARE Sodium 159 H Potassium 4.3 Chloride 128 H* Carbon Dioxide 26.0 Anion Gap 5 BUN 51 H Creatinine 1.57 H Estim Creat Clear Calc 29.37 Est GFR (MDRD) Af Amer 55 L Est GFR (MDRD) Non-Af 45 L BUN/Creatinine Ratio 32.5 H Glucose 158 H Lactic Acid 1.3 Calcium 9.2 Troponin I High Sens Urine Color Urine Clarity Urine pH Ur Specific [place] Urine Protein Urine Glucose (UA) Urine Ketones Urine Occult Blood Urine Nitrite Urine Bilirubin Urine Urobilinogen Ur Leukocyte Esterase Urine RBC Urine WBC Ur Squamous Epith Cells Urine Bacteria Hyaline Casts Urine Mucus 06/05/22 06/05/22 18:35 19:15 WBC RBC Hgb Hct MCV MCH MCHC RDW Std Deviation RDW Coeff of [place] Plt Count MPV Immature Gran % (Auto) Neut % (Auto) Lymph % (Auto) [place] % (Auto) Eos % (Auto) Baso % (Auto) Absolute Neuts (auto) Absolute Lymphs (auto) Nucleated RBC % Differential Comment Diff Path Review Platelet Estimate RBC Morphology Anisocytosis Microcytosis Sodium Potassium Chloride Carbon Dioxide Anion Gap BUN Creatinine Estim Creat Clear Calc Est GFR (MDRD) Af Amer Est GFR (MDRD) Non-Af BUN/Creatinine Ratio Glucose Lactic Acid Calcium Troponin I High Sens 13 Urine Color Yellow Urine Clarity Clear Urine pH 5.0 Ur Specific [place] 1.025 Urine Protein 30 H Urine Glucose (UA) Normal Urine Ketones Negative Urine Occult Blood Negative Urine Nitrite Negative Urine Bilirubin Negative Urine Urobilinogen 1 H Ur Leukocyte Esterase Negative Urine RBC 0 SEEN Urine WBC 0 SEEN Ur Squamous Epith Cells 0 SEEN Urine Bacteria 0 SEEN Hyaline Casts 0-5 SEEN Urine Mucus 0 SEEN Radiography Chest X-Ray - ED: 1 View, Read by ED Physician, Read by Radiologist, Right Infiltrate and Left Infiltrate Diagnostic Testing: Clinical Impression(s) from Imaging Studies Chest X-Ray 06/05/22 18:05 IMPRESSION: 1. Diffuse multifocal infiltrate bilaterally. 2. No evidence of congestive failure. Electronically Signed: Roberto Taylor MD at 18:45 EST , EKG Initial EKG: Attestation: I personally reviewed and interpreted this EKG as follows: Interpretation: Sinus Rhythm (With occasional PACs with a rate of 89) and No Acute Injury Pattern Prior EKG tracings: available for review Prior: Unchanged (09/06/2017) Critical Care Time Critical Care Time: Yes Critical care time (excluding procedures): 30-74 minutes (38), Including time spent:, Discussing w/Patient &/or Family/Practice Manager, Discussing w/Consultants, Arranging Admission or Transfer and Performing Direct Patient Care at Bedside Discharge Plan Dx/Rx/DC Orders Clinical Impression: Acute dehydration, Chronic lymphocytic leukemia, Pneumonia, Hypernatremia, Leukocytosis Disposition Disposition: Acute Care Hospital [facility] Discharge Date/Time: 06/05/22 23:44
--- NOTE | 2022-06-05 17:32 | EKG12_ITS ---
Test Reason : Blood Pressure : / mmHG Vent. Rate : 089 BPM Atrial Rate : 214 BPM P-R Int : 000 ms QRS Dur : 082 ms QT Int : 402 ms P-R-T Axes : 003 -44 027 degrees QTc Int : 489 ms Atrial flutter with variable A-V block Left axis deviation Prolonged QT Abnormal ECG Confirmed by PATEL ADLER, RUDY ([id number]), order editor ROLLY ESCOBAR ([id number]) on 06/08/2022 10:08:28 AM Referred By: MONA Confirmed By:AD SWEENEY MD
[2022-06-05 17:46] LABS: Differential Indicated SCAN CRITERIA MET
[2022-06-05 17:54] LABS: White Blood Count 59.8 K/mm3 (4.4-11.0)
[2022-06-05 17:55] LABS: Anisocytosis RARE; Differential Comment SEE COMMENTS; Microcytosis RARE; Platelet Estimate SLT DEC (ADEQ); Red Cell Morphology N CHROM NORMAL (NORM C&C)
[2022-06-05 18:01] LABS: Anion Gap 5 (5-15); BUN 51 mg/dL (7-18); BUN/Creat Ratio 32.5 RATIO (10-20); Calcium,Total 9.2 mg/dL (8.5-10.1); Chloride 128 mmol/L (98-107); Creatinine, Serum 1.57 mg/dL (0.70-1.30); EST Glomerular Filtration Rate 45 mL/min (>60); Est Glom Filt Rate - Afr Amer 55 mL/min (>60); Estimated Creatinine Clearance 29.37 ml/min; Glucose 158 mg/dL (74-106); Potassium 4.3 mmol/L (3.5-5.1); Sodium Level 159 mmol/L (136-145)
--- NOTE | 2022-06-05 18:05 | RAD_ITS ---
INDICATION: Cough EXAMINATION/TECHNIQUE: X-RAY - XR Chest 1 View COMPARISON: 06/20/2012 FINDINGS: LIFE-SUPPORT AND LINES: 1. None HEART AND VESSELS: The cardiac silhouette, pulmonary vasculature have normal appearance. No evidence of congestive failure. LUNGS AND PLEURAL SPACES: Patchy areas of hazy density noted in the periphery of the lungs bilaterally consistent with multifocal infiltrate. Additional diffuse interstitial prominence in the mid and lower lung zones bilaterally. No pulmonary mass is noted. MEDIASTINUM AND HILAR REGIONS: No masses adenopathy noted. No areas of calcification. Visualized upper airway is normal in position. BONY ELEMENTS: Diffuse thoracic spondylosis with marginal osteophyte formation. RAD/Chest 1 View (Portable) IMPRESSION: 1. Diffuse multifocal infiltrate bilaterally. 2. No evidence of congestive failure. Electronically Signed: Roberto Taylor MD at 18:45 EST ,
[2022-06-05] MEDS: 0.9% Normal Saline 1,000 ML 1000 ML IV ×2 (18:35→22:11)
[2022-06-05 19:09] LABS: Lactic Acid 1.3 mmol/L (0.4-1.9); Troponin-I HS 13 pg/mL (3.0-78.0)
[2022-06-05 19:19] LABS: Bacteria 0 SEEN /hpf (None Seen); Mucous, Urine 0 SEEN /hpf (<or=2+); Red Blood Cells-Urine 0 SEEN /hpf (0-5); Squamous Epithelial Cells - UA 0 SEEN /hpf (0-5); White Blood Cells 0 SEEN /hpf (0-5)
[2022-06-05 19:20] LABS: Color, Urine Yellow (Yellow); Glucose, Dipstick Normal (Normal); Ketone-Dipstick Negative (Negative); Leukocyte Esterase-Dipstick Negative /ul (Negative); Nitrite-Dipstick Negative (Negative); Occult Blood-Urine Negative /ul (Negative); Protein-Dipstick 30 mg/dl (Negative); Specific Gravity, Urine 1.025 (1.002-1.030); Urine Bilirubin Dipstick Negative (Negative); Urine Clarity Clear (Clear); Urine Urobilinogen 1 mg/dl (Normal)
[2022-06-05 19:26] LABS: Hyaline Cast 0-5 SEEN /lpf (0-5)
[2022-06-05 20:00] VITALS: BP 124/72; PULSE 61; RESP 18; TEMP 36.6; O2SAT 94
--- NOTE | 2022-06-05 21:19 | PCM.HP.STD ---
HPI - General General Date of Admission: 06/05/22 Date of Service: 06/05/22 Chief Complaint: Weakness HPI Narrative NYA ALATORRE, is a 81 M with a significant history of CLL, skin cancer status post resection and grafting who presented to the emergency department with 2 weeks of progressively worsening weakness. Associated with symptoms is anorexia. Patient is unable to swallow. Anything he tries to eat or drinks comes right back up. Also he reports dysgeusia. Further patient reports lightheadedness, and blurry vision. Also he has unsteady gait. Because with a painful oral mucosa and swallowing issues his PCP ordered oral lidocaine and Biotene. Because of severely elevated white count Emergency Department doctor discussed the case with oncology on-call who recommended some labs and also recommended that a CT scan of chest be obtained after hydration to rule out any mediastinal lymph adenopathy that may be impacting swallowing. [facility] Medical History Cholelithiasis Hypertension Leukemia Thrombocytopenia Home Medications cholecalciferol (vitamin D3) 25 mcg (1,000 unit) tablet (Vitamin D3) 25 mcg PO DAILY SUPPLEMENT 06/05/22 [History Last Taken 06/04/22] lidocaine HCl 2 % mucosal solution (Lidocaine Viscous) 1 applic PO 4X/DAY PRN SORE MOUTH 06/05/22 [History Last Taken 06/04/22] Allergy/AdvReac Type Severity Reaction Status Date / Time No Known Allergies Allergy Verified 06/05/22 15:04 Family History Mother , AGE 76 [place] Myocardial infarction Hypertension Father Heart disease Sister Breast cancer Other Diabetes Surgical History No pertinent past surgical history S/P ERCP Social History Smoking Status: Never smoker alcohol intake: never substance use type: does not use additional social history: DOES NOT USE ASPIRIN DOES NOT USE IBUPROFEN ROS ROS Narrative Pertinent positives and pertinent negatives as noted in HPI. All other systems were reviewed and are negative Vital Signs Vital Signs Vital Signs: 06/05/22 15:05 06/05/22 17:00 Temperature 97.8 F Temperature Source Temporal Pulse Rate 78 Respiratory Rate 18 Respiratory Effort Normal Respiratory Pattern Normal Blood Pressure 99/78 Blood Pressure Mean 85 Pulse Ox 99 Oxygen Delivery Method Room Air Weight Weight: 54.431 kg Body Mass Index (BMI) 17.2 Physical Exam Narrative Physical exam: General: Cachectic. Head: Normocephalic, atraumatic, no tenderness Eyes: Vision is grossly intact. EOMI ENT, no trauma, dry mucous membranes, loss of multiple teeth; no rhinorrhea Neck: Nontender, No thyromegaly. CVS: Regular rate and rhythm. S1-S2 present. No murmur, gallop or rub. Respiratory : clear to auscultation bilaterally, chest wall nontender, no wheezing Abdomen: Soft, nontender, nondistended, normal bowel sounds, no masses : Deferred Back: Nontender, no CVA tenderness, no midline spinal tenderness, deformities, step-offs Extremities: Nontender full range of motion, no trauma Skin: Normal color, no trauma, abrasions Neuro: Alert, oriented, cranial nerves II through XII grossly intact. Psychiatry: Normal mood. Normal affect. Not depressed. Not anxious. Results Lab / Micro Data Result Diagrams: 06/05/22 16:55 06/05/22 21:56 Labs: Laboratory Results - last 24 hr 06/05/22 16:55: WBC 59.8 H*, RBC 3.58 L, Hgb 7.3 L, Hct 29.6 L, MCV 82.7, MCH 20.4 L, MCHC 24.7 L, RDW Std Deviation 65.1 H, RDW Coeff of Florin 22.1 H, Plt Count 125 L, MPV TNP, Immature Gran % (Auto) 0.100, Neut % (Auto) 1.4 L, Lymph % (Auto) 98.3 H, [place] % (Auto) 0.2, Eos % (Auto) 0.0, Baso % (Auto) 0.0, Absolute Neuts (auto) 0.9 L, Absolute Lymphs (auto) 58.79 H, Nucleated RBC % 0.1, Differential Comment SEE COMMENTS, Diff Path Review May foll, Platelet Estimate SLT DEC, RBC Morphology N CHROM, Anisocytosis RARE, Microcytosis RARE 06/05/22 16:55: Sodium 159 H, Potassium 4.3, Chloride 128 H*, Carbon Dioxide 26.0, Anion Gap 5, BUN 51 H, Creatinine 1.57 H, Estim Creat Clear Calc 29.37, Est GFR (MDRD) Af Amer 55 L, Est GFR (MDRD) Non-Af 45 L, BUN/Creatinine Ratio 32.5 H, Glucose 158 H, Calcium 9.2 06/05/22 18:35: Lactic Acid 1.3 06/05/22 18:35: Troponin I High Sens 13 06/05/22 19:15: Urine Color Yellow, Urine Clarity Clear, Urine pH 5.0, Ur Specific [place] 1.025, Urine Protein 30 H, Urine Glucose (UA) Normal, Urine Ketones Negative, Urine Occult Blood Negative, Urine Nitrite Negative, Urine Bilirubin Negative, Urine Urobilinogen 1 H, Ur Leukocyte Esterase Negative, Urine RBC 0 SEEN, Urine WBC 0 SEEN, Ur Squamous Epith Cells 0 SEEN, Urine Bacteria 0 SEEN, Hyaline Casts 0-5 SEEN, Urine Mucus 0 SEEN Radiology Impression Chest X-Ray 06/05/22 18:05 IMPRESSION: 1. Diffuse multifocal infiltrate bilaterally. 2. No evidence of congestive failure. Electronically Signed: Roberto Taylor MD at 18:45 EST , Assessment & Plan Assessment/Plan (1) Acute dehydration: (2) Pneumonia: (3) Hypernatremia: (4) Protein calorie malnutrition: PLAN: Plan Bilateral pneumonia Gram-positive, gram-negative, atypical. Cannot rule out aspiration due to history of dysphagia. Radiologist impression of chest x-ray: 1.? Diffuse multifocal infiltrate bilaterally. 2.? No evidence of congestive failure. Chest x-ray image was visualized and independent interpreted and agree with radiologist interpretation above. Blood culture ?2 is pending Antibiotics : Received azithromycin extraparotid emergency department. Azithromycin and ceftriaxone IV hydration. Albuterol as needed Legionella antigen screen and Strep antigen ordered Leukocytosis Patient with white count of 59,800 on presentation. ED doc discussed with oncology who recommended CMP, LDH and Aaron test that was ordered at the ED, follow. Trend CBC. Severe protein calorie malnutrition Patient with cachexia. BMI of 17.2. Speech consult for dysphagia. Hospital seen patient consider nutrition consult. Dysphagia Make n.p.o. Speech consult. Per recommendation from oncology consider CT chest after patient is hydrated as mediastinal lymph adenopathy could be a reason for dysphagia although patient does not opacity oral phase of swallowing before throwing up. Dehydration/hyponatremia/hypochloremia His sodium on presentation was 159 trended up to 162. His chloride on presentation was 128, trending up to 133. BUN of 49. BUN over creatinine is 36.8. IV hydration as above CUAUHTEMOC Creatinine presentation was 1.57. Like secondary to dehydration. IV hydration as above. Trend. DVT prophylaxis Subcutaneous Lovenox ordered. Charges/Coding Visit Charges Inpatient E&M: 39277 Init Hosp L3
[2022-06-05 21:25] VITALS: BP 124/77
[2022-06-05 22:00] VITALS: BP 124/76; PULSE 61; RESP 18; TEMP 36.6; O2SAT 94
[2022-06-05 22:42] LABS: ALB/GLOB Ratio 0.8 RATIO (0.9-2.4); AST(SGOT) 16 U/L (15-37); Alanine Aminotransfer ALT/SGPT 19 U/L (16-61); Albumin, Serum 2.3 g/dL (3.2-5.0); Alkaline Phosphatase 81 U/L (45-117); Anion Gap 8 (5-15); BUN 49 mg/dL (7-18); BUN/Creat Ratio 36.8 RATIO (10-20); Calcium,Total 8.2 mg/dL (8.5-10.1); Chloride 133 mmol/L (98-107); Creatinine, Serum 1.33 mg/dL (0.70-1.30); EST Glomerular Filtration Rate 55 mL/min (>60); Est Glom Filt Rate - Afr Amer 67 mL/min (>60); Estimated Creatinine Clearance 34.67 ml/min; Glucose 121 mg/dL (74-106); LDH 190 U/L (87-241); Potassium 3.5 mmol/L (3.5-5.1); Protein, Total 5.3 g/dL (6.4-8.2); Sodium Level 162 mmol/L (136-145)
[2022-06-05] MEDS: 0.9% Normal Saline 1,000 ML 100 ML IV (23:00)
[2022-06-05 23:44] VITALS: BMI 14.6
[2022-06-06] VITALS (14 sets, daily range): BP systolic 99–153; BP diastolic 65–96; PULSE 72–105; RESP 16–18; TEMP 36.3–37.4; O2SAT 94–100
[2022-06-06 07:20] LABS: Absolute Lymphocyte Count 27.07 X10^3/uL (0.83-4.51); Absolute Neutrophil Count 0.4 X10^3/uL (2.0-7.7); Basophil# 0.03 X10^3/uL; Basophil% 0.1 % (0-1); Eosinophil# 0.03 X10^3/uL; Eosinophils% 0.1 % (0-5); Hematocrit 23.7 % (40-54); Hemoglobin 5.8 g/dL (13.0-16.5); Lymphocyte # 27.07 X10^3/ul (0.83-4.51); Lymphocyte % 98.1 % (19-41); Mean Corp Hgb Conc 24.5 g/dL (32-36); Mean Corpuscular Hgb 20.6 pg (27.0-32.0); Monocyte# 0.07 X10^3/uL; Monocyte% 0.3 % (0-10); NRBC Flagged by Analyzer 0.3 % (0-5); Neutrophil # 0.37 X10^3/uL (2.7-7.7); Neutrophil % 1.3 % (47-70); POSITIVE COUNT YES; POSITIVE DIFFERENTIAL YES; POSITIVE MORPHOLOGY YES; Platelet Count 90 K/mm3 (150-450); RBC Distribution Width SD 66.4 fl (35.1-43.9); Red Blood Count 2.82 M/mm3 (4.6-6.2); White Blood Count 27.6 K/mm3 (4.4-11.0)
[2022-06-06 07:39] LABS: Anion Gap 9 (5-15); BUN 43 mg/dL (7-18); BUN/Creat Ratio 34.1 RATIO (10-20); Calcium,Total 7.9 mg/dL (8.5-10.1); Chloride 133 mmol/L (98-107); Creatinine, Serum 1.26 mg/dL (0.70-1.30); Differential Indicated SCAN CRITERIA MET; EST Glomerular Filtration Rate 59 mL/min (>60); Est Glom Filt Rate - Afr Amer 71 mL/min (>60); Glucose 104 mg/dL (74-106); Potassium 3.4 mmol/L (3.5-5.1); Sodium Level 164 mmol/L (136-145)
[2022-06-06 07:55] LABS: Anisocytosis 2+
[2022-06-06 07:56] LABS: Ovalocyte RARE; Platelet Estimate MOD DEC (ADEQ); Schistocytes RARE
[2022-06-06] MEDS: Enoxaparin 40 MG/0.4 ML Syringe SC (08:46)
--- NOTE | 2022-06-06 09:59 | PN.HOSP_ITS ---
Subjective Subjective Doing well, states that he feels about the same as when he came in Objective Data Objective Data Vital Signs: Vital Signs Temp Pulse Resp BP Pulse Ox O2 Del Method 97.7 F L 85 16 119/81 H 97 Room Air 06/06/22 08:18 06/06/22 08:18 06/06/22 08:18 06/06/22 08:18 06/06/22 08:18 06/06/22 08:18 Oxygen Delivery Method Room Air Weight: 101 lb 10.13 oz Body Mass Index (BMI) 14.6 Intake & Output: Intake and Output for Last 24 Hours 06/05/22 06/06/22 06/07/22 03:59 03:59 03:59 Intake Total 2613.67 / 2613.67 818.67 / 818.67 Balance 2613.67 / 2613.67 818.67 / 818.67 Lab / Micro Data Result Diagrams: 06/06/22 06:45 06/06/22 06:45 Labs: Laboratory Results - last 24 hr 06/05/22 16:55: WBC 59.8 H*, RBC 3.58 L, Hgb 7.3 L, Hct 29.6 L, MCV 82.7, MCH 20.4 L, MCHC 24.7 L, RDW Std Deviation 65.1 H, RDW Coeff of Florin 22.1 H, Plt Count 125 L, MPV TNP, Immature Gran % (Auto) 0.100, Neut % (Auto) 1.4 L, Lymph % (Auto) 98.3 H, [place] % (Auto) 0.2, Eos % (Auto) 0.0, Baso % (Auto) 0.0, Absolute Neuts (auto) 0.9 L, Absolute Lymphs (auto) 58.79 H, Nucleated RBC % 0.1, Differential Comment SEE COMMENTS, Diff Path Review May foll, Platelet Estimate SLT DEC, RBC Morphology N CHROM, Anisocytosis RARE, Microcytosis RARE 06/05/22 16:55: Sodium 159 H, Potassium 4.3, Chloride 128 H*, Carbon Dioxide 26.0, Anion Gap 5, BUN 51 H, Creatinine 1.57 H, Estim Creat Clear Calc 29.37, Est GFR (MDRD) Af Amer 55 L, Est GFR (MDRD) Non-Af 45 L, BUN/Creatinine Ratio 32.5 H, Glucose 158 H, Calcium 9.2 06/05/22 18:35: Lactic Acid 1.3 06/05/22 18:35: Troponin I High Sens 13 06/05/22 19:15: Urine Color Yellow, Urine Clarity Clear, Urine pH 5.0, Ur Specific [place] 1.025, Urine Protein 30 H, Urine Glucose (UA) Normal, Urine Ketones Negative, Urine Occult Blood Negative, Urine Nitrite Negative, Urine Bilirubin Negative, Urine Urobilinogen 1 H, Ur Leukocyte Esterase Negative, Urine RBC 0 SEEN, Urine WBC 0 SEEN, Ur Squamous Epith Cells 0 SEEN, Urine Bacteria 0 SEEN, Hyaline Casts 0-5 SEEN, Urine Mucus 0 SEEN 06/05/22 21:56: Sodium 162 H*, Potassium 3.5, Chloride 133 H*, Carbon Dioxide 21.0, Anion Gap 8, BUN 49 H, Creatinine 1.33 H, Estim Creat Clear Calc 34.67, Est GFR (MDRD) Af Amer 67, Est GFR (MDRD) Non-Af 55 L, BUN/Creatinine Ratio 36.8 H, Glucose 121 H, Calcium 8.2 L, Total Bilirubin 0.80, AST 16, ALT 19, Alkaline Phosphatase 81, Lactate Dehydrogenase 190, Total Protein 5.3 L, Albumin 2.3 L, Globulin 3.0, Albumin/Globulin Ratio 0.8 L 06/05/22 21:56: Direct Antiglob Test NEG w/POLYSPECIFIC 06/06/22 06:45: WBC 27.6 H, RBC 2.82 L, Hgb 5.8 L*, Hct 23.7 L, MCV 84.0, MCH 20.6 L, MCHC 24.5 L, RDW Std Deviation 66.4 H, RDW Coeff of Florin 22.0 H, Plt Count 90 L, Immature Gran % (Auto) 0.100, Neut % (Auto) 1.3 L, Lymph % (Auto) 98.1 H, [place] % (Auto) 0.3, Eos % (Auto) 0.1, Baso % (Auto) 0.1, Absolute Neuts (auto) 0.4 L, Absolute Lymphs (auto) 27.07 H, Nucleated RBC % 0.3, Differential Comment , Diff Path Review May foll, Platelet Estimate MOD DEC, Anisocytosis 2+, Ovalocytes RARE, Schistocytes RARE 06/06/22 06:45: Sodium 164 H*, Potassium 3.4 L, Chloride 133 H*, Carbon Dioxide 22.0, Anion Gap 9, BUN 43 H, Creatinine 1.26, Estim Creat Clear Calc 31.00, Est GFR (MDRD) Af Amer 71, Est GFR (MDRD) Non-Af 59 L, BUN/Creatinine Ratio 34.1 H, Glucose 104, Calcium 7.9 L 06/06/22 08:55: Crossmatch See Detail Micro: Microbiology 06/05/22 19:15 Urine, Clean Catch Legionella Antigen - Final 06/05/22 19:15 Urine, Clean Catch Streptococcus pneumoniae Antigen (M - Final Radiography Diagnostic Testing: Radiology Impression Chest X-Ray 06/05/22 18:05 IMPRESSION: 1. Diffuse multifocal infiltrate bilaterally. 2. No evidence of congestive failure. Electronically Signed: Roberto Taylor MD at 18:45 EST , Physical Exam Narrative General: Alert, Oriented x3, Cooperative, No apparent distress, cachectic and pale HEENT: Atraumatic, PERRLA, EOMI, Normocephalic Oral: Moist Mucosa Neck: Supple, No JVD Lungs: Clear to auscultation, Normal air movement, No rhonchi, No wheeze, No rales Cardiovascular: Regular rate, Regular Rhythm, Normal S1, Normal S2, No murmurs Abdomen: Soft, Non Tender, Non-Distended, No Hepato-splenomegaly Extremities: No edema, Capillary Refill Less than 3 Seconds Skin: No rashes, No breakdown Musculoskeletal: No Tenderness to Palpation of Joints or Extremities Neurological: Cranial nerves II-XII grossly intact, Motor Exam 5/5 strength throughout, Sensory exam intact to light touch and pain Psych/Mental Status: Normal Affect, Appropriate Assessment & Plan Assessment/Plan (1) Acute dehydration: (2) Pneumonia: (3) Hypernatremia: (4) Protein calorie malnutrition: PLAN: Plan 1. Bilateral pneumonia/history of CLL with severe protein calorie malnutriti on/anemia ? There is concern for possible aspiration so he was made n.p.o., will have nursing perform a bedside dysphagia screen if he fails we will need to get speech therapy ? Continue with antibiotics ? Blood cultures are pending ? He does have a history of CLL which explains part of his white cell count elevation ? We will consult nutrition for his severe protein calorie malnutrition?UA is unremarkable ? Bilirubin and LDH are normal ? The anemia simply could be from CLL however we will obtain an iron as well as B12 and folic acid and a stool guaiac, in the meantime we will transfuse 2 units 2. Severe hypernatremia and hyperchloremia with an CUAUHTEMOC due to dehydration ? We will change his fluids from normal saline to D5W and place him on a sliding scale insulin with Accu-Cheks ? We will continue to monitor his electrolytes as well as his renal function, his renal function has returned to baseline DVT: Lovenox Charges/Coding Visit Charges Inpatient E&M: 40955 Subs Hosp L2
--- NOTE | 2022-06-06 10:55 | CASEMGMT ---
Addendum entered by Lisa Cee 06/06/22 11:50: JULIANNA SAUCEDA Assessment: TC to pt dtr Pao Cai for initial transition planning/care coordination assessment per pt request. JULIANNA SAUCEDA introduced self and role at [facility], pt dtr voices understanding and consents to assessment. Care providers, pharmacy, and demographics verified/updated. Admitting Dx: bilat pna PCP:David Specialists:Omaira, onc but dtr states pt does not want to return. Preferred Pharmacy: [facility] Insurance: Crush on original products [facility] Prescription Benefit: yes LNOK: Pretty Hernandez, ; Pao Cai, dtr Living Arrangements: Pt lives with in a single story home with 4 steps to enter with rails on both sides and a grab bar. Dtr reports pt is typically I in ADL's but has been getting weaker recently. Transportation: Pt has never driven. Dtr or provides transportation. DME/HHC/SNF: Pt has grab bars at the toilet and shower, a cane and FWW but normally does not use AD. Pt dtr states pt has no hx of HHC or SNF stays. Pt dtr reports that her mother does not get around well. Discussed with her that at this time therapy is recommending HHC vs SNF. She states she wondered if pt would need s/t therapy prior to coming home. States she would like to discuss with her mother if this is the final recommendation. Pt dtr states no further concerns/needs. CM to follow. Advised pt to ask CM if any further question/concerns/needs arise, voices understanding. Pt Dtr Goal: HHC vs SNF Plan: HHC vs SNF Original Note: JULIANNA SAUCEDA in to pt room to complete assessment. Pt asks this JULIANNA SAUCEDA to contact Pao Cai to complete.
[2022-06-06 11:09] LABS: Ferritin 97 ng/mL (26-388); Iron 22 ug/dL (65-175); Iron Binding Capacity,Total 195 ug/dL (250-450); Magnesium 2.8 mg/dL (1.6-2.6); PERCENT IRON SATURATION 11.3 % (15.0-55.0); Phosphorus 3.7 mg/dL (2.5-4.9)
[2022-06-06] MEDS: Insulin Lispro 100 UNIT/ML INSULN.PEN SC ×2 (11:19→15:46)
[2022-06-06 11:36] LABS: Bedside Glucose 170 mg/dL (74-106)
[2022-06-06] MEDS: Ensure Plus High Protein 120 ML LIQUID PO (14:11)
[2022-06-06 16:06] LABS: Bedside Glucose 157 mg/dL (74-106)
[2022-06-06 21:36] LABS: Bedside Glucose 115 mg/dL (74-106)
[2022-06-06 22:15] LABS: Anion Gap 7 (5-15); BUN 39 mg/dL (7-18); BUN/Creat Ratio 28.3 RATIO (10-20); Calcium,Total 8.3 mg/dL (8.5-10.1); Chloride 133 mmol/L (98-107); Creatinine, Serum 1.38 mg/dL (0.70-1.30); EST Glomerular Filtration Rate 53 mL/min (>60); Est Glom Filt Rate - Afr Amer 64 mL/min (>60); Glucose 130 mg/dL (74-106); Potassium 3.7 mmol/L (3.5-5.1); Sodium Level 163 mmol/L (136-145)
[2022-06-07] VITALS (8 sets, daily range): BP systolic 114–147; BP diastolic 81–88; PULSE 74–93; RESP 16–18; TEMP 36.4–36.6; O2SAT 95–100
[2022-06-07 07:15] LABS: Absolute Lymphocyte Count 35.62 X10^3/uL (0.83-4.51); Absolute Neutrophil Count 0.6 X10^3/uL (2.0-7.7); Basophil# 0.05 X10^3/uL; Basophil% 0.1 % (0-1); Eosinophil# 0.03 X10^3/uL; Eosinophils% 0.1 % (0-5); Hematocrit 31.5 % (40-54); Hemoglobin 8.7 g/dL (13.0-16.5); Lymphocyte # 35.62 X10^3/ul (0.83-4.51); Lymphocyte % 97.9 % (19-41); Mean Corp Hgb Conc 27.6 g/dL (32-36); Mean Corpuscular Hgb 23.5 pg (27.0-32.0); Mean Corpuscular Volume 85.1 fL (80-94); Monocyte# 0.12 X10^3/uL; Monocyte% 0.3 % (0-10); NRBC Flagged by Analyzer 0.5 % (0-5); Neutrophil # 0.55 X10^3/uL (2.7-7.7); Neutrophil % 1.5 % (47-70); POSITIVE COUNT YES; POSITIVE DIFFERENTIAL YES; POSITIVE MORPHOLOGY YES; Platelet Count 79 K/mm3 (150-450); RBC Distribution Width CV 19.7 % (11.6-14.6); RBC Distribution Width SD 59.9 fl (35.1-43.9); White Blood Count 36.4 K/mm3 (4.4-11.0)
[2022-06-07 07:22] LABS: Differential Indicated SCAN CRITERIA MET
[2022-06-07 07:25] LABS: Bedside Glucose 147 mg/dL (74-106)
[2022-06-07 07:53] LABS: ALB/GLOB Ratio 0.7 RATIO (0.9-2.4); AST(SGOT) 7 U/L (15-37); Alanine Aminotransfer ALT/SGPT 13 U/L (16-61); Albumin, Serum 1.9 g/dL (3.2-5.0); Alkaline Phosphatase 68 U/L (45-117); Anion Gap 6 (5-15); BUN 34 mg/dL (7-18); BUN/Creat Ratio 27.9 RATIO (10-20); Calcium,Total 7.8 mg/dL (8.5-10.1); Chloride 131 mmol/L (98-107); Creatinine, Serum 1.22 mg/dL (0.70-1.30); EST Glomerular Filtration Rate 61 mL/min (>60); Est Glom Filt Rate - Afr Amer 74 mL/min (>60); Estimated Creatinine Clearance 32.01 ml/min; Globulin 2.9 g/dL (2.2-4.2); Glucose 161 mg/dL (74-106); Potassium 3.1 mmol/L (3.5-5.1); Protein, Total 4.8 g/dL (6.4-8.2); Sodium Level 160 mmol/L (136-145)
[2022-06-07 07:55] LABS: Smudge Cells 1+
[2022-06-07 07:56] LABS: Anisocytosis 2+; Ovalocyte 1+
[2022-06-07] MEDS: Ensure Plus High Protein 120 ML LIQUID PO ×2 (09:39→17:41)
[2022-06-07] MEDS: Enoxaparin 40 MG/0.4 ML Syringe SC (09:39)
--- NOTE | 2022-06-07 11:10 | PN.HOSP_ITS ---
Subjective Subjective No issues overnight. Feels a little bit better after the blood transfusion Objective Data Objective Data Vital Signs: Vital Signs Temp Pulse Resp BP Pulse Ox O2 Del Method 97.7 F L 86 16 118/85 H 96 Room Air 06/07/22 08:51 06/07/22 08:51 06/07/22 08:51 06/07/22 08:51 06/07/22 08:51 06/07/22 08:51 Oxygen Delivery Method Room Air Weight: 101 lb 10.13 oz Body Mass Index (BMI) 14.6 Intake & Output: Intake and Output for Last 24 Hours 06/06/22 06/07/22 06/08/22 03:59 03:59 03:59 Intake Total 2613.67 / 2613.67 2656.33 / 2656.33 210.33 / 210.33 Balance 2613.67 / 2613.67 2656.33 / 2656.33 210.33 / 210.33 Medical Nutrition Assessment Dietitian: Malnutrition Criteria Met Start: 06/06/22 13:15 Freq: Status: Active Protocol: Document 06/06/22 13:15 GABRIELA (Rec: 06/06/22 13:15 SLA [id number]) Nutrition Malnutrition Evidence of Malnutrition Exists Yes Malnutrition (severe): Chronic Evidenced By Suboptimal Energy Intake ( Severe),Weight Loss (Severe), Physical Changes (Severe) Clinical Problem Chronic Disease or Condition Related Malnutrition Etiology related to pt c/o difficulty swallowing and inability to consume adequate nutrition to meet est nutritional needs Signs/Symptoms as evidenced by need for mech altered diet w/ [facility] to follow, pt report of wt loss (unsure amount/timeframe), BMI <15, obvious fat/muscle loss in face, torso, upper/lower extremies and po intake meeting < 75% of estimated nutrition needs Status Active Problem Recommendation Dietitian Recommendations/Changes Will continue liberal Regular diet - consistency per [facility] Will provide magic cup or ensure pudding w/ lunch and dinner - fortified foods as able Will order 120 ml ensure plus high protein 4x/day w/ medpass for increased nutrition if consumed Lab / Micro Data Result Diagrams: 06/07/22 06:10 06/07/22 06:10 Labs: Laboratory Results - last 24 hr 06/06/22 08:55: Blood Type A POSITIVE, Antibody Screen NEGATIVE, Crossmatch See Detail 06/06/22 11:15: POC Glucose 170 H 06/06/22 15:45: POC Glucose 157 H 06/06/22 21:07: POC Glucose 115 H 06/06/22 21:25: Sodium 163 H*, Potassium 3.7, Chloride 133 H*, Carbon Dioxide 23.0, Anion Gap 7, BUN 39 H, Creatinine 1.38 H, Estim Creat Clear Calc 28.30, Est GFR (MDRD) Af Amer 64, Est GFR (MDRD) Non-Af 53 L, BUN/Creatinine Ratio 28.3 H, Glucose 130 H, Calcium 8.3 L 06/07/22 06:10: WBC 36.4 H*, RBC 3.70 L, Hgb 8.7 L, Hct 31.5 L, MCV 85.1, MCH 23.5 L, MCHC 27.6 L D, RDW Std Deviation 59.9 H, RDW Coeff of Florin 19.7 H, Plt Count 79 L, Immature Gran % (Auto) 0.100, Neut % (Auto) 1.5 L, Lymph % (Auto) 97.9 H, [place] % (Auto) 0.3, Eos % (Auto) 0.1, Baso % (Auto) 0.1, Absolute Neuts (auto) 0.6 L, Absolute Lymphs (auto) 35.62 H, Nucleated RBC % 0.5, Differential Comment , Diff Path Review May foll, Smudge Cells 1+ H, Anisocytosis 2+, Ovalocy guerline 1+ 06/07/22 06:10: Sodium 160 H, Potassium 3.1 L, Chloride 131 H*, Carbon Dioxide 23.0, Anion Gap 6, BUN 34 H, Creatinine 1.22, Estim Creat Clear Calc 32.01, Est GFR (MDRD) Af Amer 74, Est GFR (MDRD) Non-Af 61, BUN/Creatinine Ratio 27.9 H, Glucose 161 H, Calcium 7.8 L, Total Bilirubin 0.60, AST 7 L, ALT 13 L, Alkaline Phosphatase 68, Total Protein 4.8 L, Albumin 1.9 L, Globulin 2.9, Albumin/Globulin Ratio 0.7 L 06/07/22 07:02: POC Glucose 147 H Micro: Microbiology 06/05/22 19:15 Urine, Clean Catch Legionella Antigen - Final 01/06/23 19:15 Urine, Clean Catch Streptococcus pneumoniae Antigen (M - Final Physical Exam Narrative General: Alert, Oriented x3, Cooperative, No apparent distress, cachectic HEENT: Atraumatic, PERRLA, EOMI, Normocephalic Oral: Moist Mucosa Neck: Supple, No JVD Lungs: Clear to auscultation, Normal air movement, No rhonchi, No wheeze, No rales Cardiovascular: Regular rate, Regular Rhythm, Normal S1, Normal S2, No murmurs Abdomen: Soft, Non Tender, Non-Distended, No Hepato-splenomegaly Extremities: No edema, Capillary Refill Less than 3 Seconds Skin: No rashes, No breakdown Musculoskeletal: No Tenderness to Palpation of Joints or Extremities Neurological: Cranial nerves II-XII grossly intact, Motor Exam 5/5 strength throughout, Sensory exam intact to light touch and pain Psych/Mental Status: Flat affect, Appropriate Assessment & Plan Assessment/Plan (1) Acute dehydration: (2) Pneumonia: (3) Hypernatremia: (4) Protein calorie malnutrition: PLAN: Plan 1. Bilateral pneumonia/history of CLL with severe protein calorie malnutrition/iron deficiency anemia ? There is concern for possible aspiration so he was made n.p.o., will have nursing perform a bedside dysphagia screen if he fails we will need to get speech therapy ? Continue with antibiotics ? He does have a history of CLL which explains part of his white cell count elevation ? We will consult nutrition for his severe protein calorie malnutrition ?UA is unremarkable ? Bilirubin and LDH are normal ? The anemia simply could be from CLL iron deficiency is likely based on his iron studies, blood cultures are still pending ? PT/OT for evaluation and possible placement 2. Severe hypernatremia and hyperchloremia with an CUAUHTEMOC due to dehydration ? We will change his fluids from normal saline to D5W and place him on a sliding scale insulin with Accu-Cheks ? We will continue to monitor his electrolytes as well as his renal function, his renal function has returned to baseline DVT: Lovenox Charges/Coding Visit Charges Inpatient E&M: 78671 Subs Hosp L2
[2022-06-07] MEDS: Insulin Lispro 100 UNIT/ML INSULN.PEN SC ×2 (11:21→21:58)
[2022-06-07 11:41] LABS: Bedside Glucose 193 mg/dL (74-106)
[2022-06-07 16:16] LABS: Bedside Glucose 138 mg/dL (74-106)
[2022-06-07 22:26] LABS: Bedside Glucose 151 mg/dL (74-106)
[2022-06-08] VITALS (7 sets, daily range): BP systolic 115–144; BP diastolic 76–98; PULSE 73–80; RESP 16–18; TEMP 36.5–37.3; O2SAT 92–98
[2022-06-08 05:19] LABS: Absolute Lymphocyte Count 34.71 X10^3/uL (0.83-4.51); Absolute Neutrophil Count 0.5 X10^3/uL (2.0-7.7); Basophil# 0.05 X10^3/uL; Basophil% 0.1 % (0-1); Eosinophil# 0.03 X10^3/uL; Eosinophils% 0.1 % (0-5); Hematocrit 30.3 % (40-54); Hemoglobin 8.7 g/dL (13.0-16.5); Lymphocyte # 34.71 X10^3/ul (0.83-4.51); Lymphocyte % 97.9 % (19-41); Mean Corp Hgb Conc 28.7 g/dL (32-36); Mean Corpuscular Hgb 24.1 pg (27.0-32.0); Mean Corpuscular Volume 83.9 fL (80-94); Monocyte# 0.06 X10^3/uL; Monocyte% 0.2 % (0-10); NRBC Flagged by Analyzer 0.1 % (0-5); Neutrophil # 0.54 X10^3/uL (2.7-7.7); Neutrophil % 1.6 % (47-70); POSITIVE COUNT YES; POSITIVE DIFFERENTIAL YES; POSITIVE MORPHOLOGY YES; Platelet Count 74 K/mm3 (150-450); RBC Distribution Width CV 20.1 % (11.6-14.6); RBC Distribution Width SD 60.6 fl (35.1-43.9); Red Blood Count 3.61 M/mm3 (4.6-6.2)
[2022-06-08 05:31] LABS: Differential Indicated SCAN CRITERIA MET; White Blood Count 35.4 K/mm3 (4.4-11.0)
[2022-06-08 06:34] LABS: Anion Gap 8 (5-15); BUN 24 mg/dL (7-18); BUN/Creat Ratio 22.6 RATIO (10-20); Calcium,Total 7.7 mg/dL (8.5-10.1); Chloride 126 mmol/L (98-107); Creatinine, Serum 1.06 mg/dL (0.70-1.30); EST Glomerular Filtration Rate 72 mL/min (>60); Est Glom Filt Rate - Afr Amer 87 mL/min (>60); Estimated Creatinine Clearance 36.85 ml/min; Glucose 132 mg/dL (74-106); Potassium 2.8 mmol/L (3.5-5.1); Sodium Level 157 mmol/L (136-145)
[2022-06-08 06:41] LABS: Bedside Glucose 127 mg/dL (74-106)
[2022-06-08 07:36] LABS: Anisocytosis 2+; Hypochromasia 2+; Ovalocyte 1+; Platelet Estimate MKD DEC (ADEQ); Smudge Cells 1+
[2022-06-08 08:29] LABS: Vitamin B12 773 pg/mL (211-911)
[2022-06-08] MEDS: Enoxaparin 40 MG/0.4 ML Syringe SC (08:32)
--- NOTE | 2022-06-08 10:39 | PN.HOSP_ITS ---
Subjective Subjective Patient is a 81-year-old gentleman with history of chronic lymphocytic leukemia presented with progressive generalized weakness. Imaging studies obtained on admission demonstrated diffuse multifocal infiltrate bilaterally diagnosis of bilateral pneumonia made admitted to regular nursing floor for further managemen t Objective Data Objective Data Vital Signs: Vital Signs Temp Pulse Resp BP Pulse Ox O2 Del Method 97.7 F L 73 18 136/89 H 94 Room Air 06/08/22 08:35 06/08/22 08:35 06/08/22 08:35 06/08/22 08:35 06/08/22 09:10 06/08/22 09:10 Oxygen Delivery Method Room Air Weight: 46.1 kg Body Mass Index (BMI) 14.6 Intake & Output: Intake and Output for Last 24 Hours 06/06/22 06/07/22 06/08/22 23:59 23:59 23:59 Intake Total 3108.00 / 3108.00 1954.66 / 1954.66 1450.67 / 1450.67 Output Total 100 / 100 Balance 3108.00 / 3108.00 1954.66 / 1954.66 1350.67 / 1350.67 Medical Nutrition Assessment Dietitian: Malnutrition Criteria Met Start: 06/06/22 13:15 Freq: Status: Active Protocol: Document 06/06/22 13:15 GABRIELA (Rec: 06/06/22 13:15 GABRIELA [id number]) Nutrition Malnutrition Evidence of Malnutrition Exists Yes Malnutrition (severe): Chronic Evidenced By Suboptimal Energy Intake ( Severe),Weight Loss (Severe), Physical Changes (Severe) Clinical Problem Chronic Disease or Condition Related Malnutrition Etiology related to pt c/o difficulty swallowing and inability to consume adequate nutrition to meet est nutritional needs Signs/Symptoms as evidenced by need for [facility] altered diet w/ KILN FURNITURE CASTER to follow, pt report of wt loss (unsure amount/timeframe), BMI <15, obvious fat/muscle loss in face, torso, upper/lower extremies and po intake meeting < 75% of estimated nutrition needs Status Active Problem Recommendation Dietitian Recommendations/Changes Will continue liberal Regular diet - consistency per KILN FURNITURE CASTER Will provide magic cup or ensure pudding w/ lunch and dinner - fortified foods as able Will order 120 ml ensure plus high protein 4x/day w/ medpass for increased nutrition if consumed Lab / Micro Data Result Diagrams: 06/08/22 04:21 06/08/22 11:17 Labs: Laboratory Results - last 24 hr 06/06/22 06:45: Vitamin B12 773 06/07/22 11:20: POC Glucose 193 H 06/07/22 15:53: POC Glucose 138 H 06/07/22 21:57: POC Glucose 151 H 06/08/22 04:21: WBC 35.4 H*, RBC 3.61 L, Hgb 8.7 L, Hct 30.3 L, MCV 83.9, MCH 24.1 L, MCHC 28.7 L, RDW Std Deviation 60.6 H, RDW Coeff of Florin 20.1 H, Plt Cou nt 74 L, Immature Gran % (Auto) 0.100, Neut % (Auto) 1.6 L, Lymph % (Auto) 97.9 H, [place] % (Auto) 0.2, Eos % (Auto) 0.1, Baso % (Auto) 0.1, Absolute Neuts (auto) 0.5 L, Absolute Lymphs (auto) 34.71 H, Nucleated RBC % 0.1, Smudge Cells 1+ H, Platelet Estimate MKD DEC, Hypochromasia 2+, Anisocytosis 2+, Ovalocytes 1+ 06/08/22 04:21: Sodium 157 H, Potassium 2.8 L, Chloride 126 H, Carbon Dioxide 23.0, Anion Gap 8, BUN 24 H, Creatinine 1.06, Estim Creat Clear Calc 36.85, Est GFR (MDRD) Af Amer 87, Est GFR (MDRD) Non-Af 72, BUN/Creatinine Ratio 22.6 H, Glucose 132 H, Calcium 7.7 L 06/08/22 06:21: POC Glucose 127 H Micro: Microbiology 06/05/22 21:56 Blood Culture (Wb) - Left Hand Blood Culture - Preliminary No growth in 48 hours. 06/05/22 22:02 Blood Culture (Wb) - Venous Blood Culture - Preliminary No growth in 48 hours. 06/05/22 19:15 Urine, Clean Catch Legionella Antigen - Final 06/05/22 19:15 Urine, Clean Catch Streptococcus pneumoniae Antigen (M - Final Physical Exam Narrative GENERAL: cooperative but frail looking HEENT: Atraumatic; poor oral dentition EYES; Anicteric, Normal Conjunctiva NECK; supple, normal thyroid, RESPIRATORY: Diminished to auscultation CARDIOVASCULAR: Regular S1 S2, GI: soft, normoactive bowel sounds, : No Renal angle tenderness; EXTREMITIES: No edema, no clubbing, MUSCULOSKELETAL: no muscle wasting NEURO: Awake; no lateralizing signs. SKIN: No Rash PSYCH; Flat affect Assessment & Plan Assessment/Plan (1) Acute dehydration: (2) Pneumonia: (3) Hypernatremia: (4) Protein calorie malnutrition: PLAN: Plan Patient is a 81-year-old gentleman with history of chronic lymphocytic leukemia presented with progressive generalized weakness. Imaging studies obtained on admission demonstrated diffuse multifocal infiltrate bilaterally diagnosis of bilateral pneumonia made admitted to regular nursing floor for further management 1. Bilateral pneumonia ? Patient managed with broad-spectrum antibiotic therapy with Ampicillin as well as azithromycin. Has also been placed on oxygen titrated to keep saturation greater than 90. There was a concern for possible aspiration and speech therapy consulted for speech eval 2. Chronic lymphocytic leukemia ? May partly explain for patient markedly elevated WBC count. Daily CBC ordered for monitoring 3. Severe hyponatremia ? Blood levels peaked at 163 has been started on D5W with every 4 hour monitoring of electrolytes ordered. So placed to nephrology Case discussed with Dr. Vu 4. Physical deconditioning - Requested for PT OT eval and social media coordinator to assist with discharge planning 5. [place] [facility] [place] Spent on patient; 36 minutes Charges/Coding Visit Charges Inpatient E&M: 87970 Subs Hosp L2
--- NOTE | 2022-06-08 11:07 | CON.PCM.RE_ITS ---
Assessment & Plan Assessment/Plan (1) Hypernatremia: (2) CUAUHTEMOC (acute kidney injury): PLAN: Plan Impression/Plan: The patient is a 81-year-old man with history of chronic lymphocytic leukemia, thrombocytopenia, hypertension, and basal so cancer of the skin who presented to the hospital on 06/05/2022 with 2 weeks history of weakness, anorexia and dysphagia. The patient was admitted for treatment of bilateral pneumonia and dehydration. Nephrology is following for hypernatremia and CUAUHTEMOC. Hypernatremia. Suspect hyponatremia is due to dehydration. Urinalysis shows concentrated urine on presentation. Low suspicion for diabetes insipidus. Continue D5W for today. Recheck serum sodium again tomorrow. If there is no further improvement in serum sodium, I will check urine osmolality, urine sodium, and urine potassium. Monitor urine output. Encourage patient to drink when he is thirsty. Acute kidney injury. Resolving. Serum creatinine peaked at 1.57 mg/dL on presentation on 06/05/2022. Serum creatinine is down to 1.15 mg/dL today. However, I suspect that serum creatinine is overestimating true GFR given very low muscle mass on exam. I will see if we can cystatin C. If not, we can check as outpatient as well. Pneumonia. The patient is being treated with azithromycin and Unasyn as per hospital medicine service. HPI Consult Data Date of Consult: 06/08/22 HPI Narrative Reason for Consultation: Hypernatremia HPI Narrative: NYA ALATORRE, is a 81-year-old man with history of chronic lymphocytic leukemia, thrombocytopenia, hypertension, and basal so cancer of the skin who presented to the hospital on 06/05/2022 with 2 weeks history of weakness, anorexia and dysphagia. The patient was also found to have pneumonia on evaluation in the ED. Nephrology is asked to see the patient because of severe hypernatremia and CUAUHTEMOC. On presentation to the hospital, the patient had serum sodium of 159 mmol/L on 06/05/2022 at 16:55. Sodium level went up to 164 mmol/L on 06/06/2022. He also presented with serum creatinine of 1.57 mg/dL on 06/05/2022 at 16:55. The last available serum creatinine prior to presentation was from 10/20/2017 at 0.78 mg/dL. There was no prior history of hypernatremia. Serum sodium has improved since admission and is 157 mmol/L today. Renal function has also improved. He is currently on D5W at 100 mL/h. Prior to admiss [facility], later [facility], the patient was not on diuretic or antihypertensives. The patient is not a very good historian. However, intake has been poor mainly because of inability to chew food due to poor dentition. He denies chest pain, shortness of breath at rest, nausea, vomiting, or diarrhea prior to admission. There has been no edema of the lower extremities. He denies chronic use of NSAIDs. [facility] Medical History (Updated 06/08/22 @ 11:[address] Vanessa Reyes MD) Cholelithiasis Hypertension Leukemia Thrombocytopenia Home Medications cholecalciferol (vitamin D3) 25 mcg (1,000 unit) tablet (Vitamin D3) 25 mcg PO DAILY SUPPLEMENT 06/05/22 [History Last Taken 06/04/22] lidocaine HCl 2 % mucosal solution (Lidocaine Viscous) 1 applic PO 4X/DAY PRN SORE MOUTH 06/05/22 [History Last Taken 06/04/22] Allergy/AdvReac Type Severity Reaction Status Date / Time No Known Allergies Allergy Verified 06/05/22 15:04 Family History Mother , AGE 76 [place] Myocardial infarction Hypertension Father Heart disease Sister Breast cancer Other Diabetes Surgical History No pertinent past surgical history S/P ERCP Social History Smoking Status: Never smoker alcohol intake: never substance use type: does not use additional social history: DOES NOT USE ASPIRIN DOES NOT USE IBUPROFEN ROS ROS Narrative 03/09 ROS was done. ROS is otherwise negative other than what is documented in HPI. Physical Exam Narrative General: Cachectic malnourished appearing man HEENT: Normocephalic, atraumatic. PERRLA, EOMI. Mucous membrane is moist. However, dentition is poor. Neck: Supple, no JVD. Heart: Normal S1, S2. No rubs, murmurs, or gallops. Lungs: Clear to auscultation bilaterally. Abdomen: Normal bowel sound, soft, nontender, no guarding or rebound. Extremities: No edema. There is no clubbing or cyanosis. Neurologic: Slow to answer question, oriented x2. No focal neurologic deficit. Psychiatric: Flat affect. Not agitated. Skin: Warm and dry. No rash. Medical Records Data Medical Nutrition Assessment Dietitian: Malnutrition Criteria Met Start: 06/06/22 13:15 Freq: Status: Active Protocol: Document 06/06/22 13:15 [facility] (Rec: 06/06/22 13:15 [facility] [id number]) Nutrition Malnutrition Evidence of Malnutrition Exists Yes Malnutrition (severe): Chronic Evidenced By Suboptimal Energy Intake ( Severe),Weight Loss (Severe), Physical Changes (Severe) Clinical Problem Chronic Disease or Condition Related Malnutrition Etiology related to pt c/o difficulty swallowing and inability to consume adequate nutrition to meet est nutritional needs Signs/Symptoms as evidenced by need for [facility] altered diet w/ COMPLIANCE ASSISTANT to follow, pt report of wt loss (unsure amount/timeframe), BMI <15, obvious fat/muscle loss in face, torso, upper/lower extremies and po intake meeting < 75% of estimated nutrition needs Status Active Problem Recommendation Dietitian Recommendations/Changes Will continue liberal Regular diet - consistency per COMPLIANCE ASSISTANT Will provide magic cup or ensure pudding w/ lunch and dinner - fortified foods as able Will order 120 ml ensure plus high protein 4x/day w/ medpass for increased nutrition if consumed Lab / Micro Data Result Diagrams: 06/08/22 04:21 06/08/22 11:17 Labs: Laboratory Results - last 24 hr 06/06/22 06:45: Vitamin B12 773 06/07/22 11:20: POC Glucose 193 H 06/07/22 15:53: POC Glucose 138 H 06/07/22 21:57: POC Glucose 151 H 06/08/22 04:21: WBC 35.4 H*, RBC 3.61 L, Hgb 8.7 L, Hct 30.3 L, MCV 83.9, MCH 24.1 L, MCHC 28.7 L, RDW Std Deviation 60.6 H, RDW Coeff of Florin 20.1 H, Plt Count 74 L, Immature Gran % (Auto) 0.100, Neut % (Auto) 1.6 L, Lymph % (Auto) 97.9 H, [place] % (Auto) 0.2, Eos % (Auto) 0.1, Baso % (Auto) 0.1, Absolute Neuts (auto) 0.5 L, Absolute Lymphs (auto) 34.71 H, Nucleated RBC % 0.1, Smudge Cells 1+ H, Platelet Estimate MKD DEC, Hypochromasia 2+, Anisocytosis 2+, Ovalocytes 1+ 06/08/22 04:21: Sodium 157 H, Potassium 2.8 L, Chloride 126 H, Carbon Dioxide 23.0, Anion Gap 8, BUN 24 H, Creatinine 1.06, Estim Creat Clear Calc 36.85, Est GFR (MDRD) Af Amer 87, Est GFR (MDRD) Non-Af 72, BUN/Creatinine Ratio 22.6 H, Glucose 132 H, Calcium 7.7 L 06/08/22 06:21: POC Glucose 127 H Micro: Microbiology 06/05/22 21:56 Blood Culture (Wb) - Left Hand Blood Culture - Preliminary No growth in 48 hours. 06/05/22 22:02 Blood Culture (Wb) - Venous Blood Culture - Preliminary No growth in 48 hours.
[2022-06-08] MEDS: Insulin Lispro 100 UNIT/ML INSULN.PEN SC (11:22)
[2022-06-08 11:46] LABS: Bedside Glucose 150 mg/dL (74-106)
[2022-06-08 11:54] LABS: Anion Gap 7 (5-15); BUN 22 mg/dL (7-18); BUN/Creat Ratio 19.1 RATIO (10-20); Calcium,Total 8.2 mg/dL (8.5-10.1); Chloride 122 mmol/L (98-107); Creatinine, Serum 1.15 mg/dL (0.70-1.30); EST Glomerular Filtration Rate 65 mL/min (>60); Est Glom Filt Rate - Afr Amer 79 mL/min (>60); Estimated Creatinine Clearance 33.96 ml/min; Glucose 154 mg/dL (74-106); Potassium 3.2 mmol/L (3.5-5.1); Sodium Level 153 mmol/L (136-145)
[2022-06-08] MEDS: Potassium Chloride 10mEq/100mL 10 MEQ/100 ML IV.SOLN. 100 MEQ IV BOLUS ×4 (12:06→16:35)
--- NOTE | 2022-06-08 15:25 | CHAPLAIN ---
Type of Pastoral Visit _x__ Initial Visit ___ Follow-up Visit ___ On-call Visit ___ General Patient Visit ___ Spiritual Assessment ___ Family Conference ___ Bereavement ___ Rapid Response ___ Code Blue ___ Other (describe below) Pastoral Care Referral From _x__ Patient ___ Family ___ Nurse ___ Physician ___ Scow Derrick Operator ___ Nutrition Consultant ___ Other (describe below) Sacrament/Intervention ___ Active listening ___ Anointing ___ Worship ___ Bereavement ___ Communion ___ Caitlyn exploration ___ ___ Life review _x__ Prayer ___ Reconciliation ___ Sacrament of Sick _x__ Supportive presence ___ Wedding ___ Other (describe below) Pastoral Comments patient has visitors including his , sister, and JERAMY; pt states not doing real well when asked; spouse states that a prayer would be nice but admits to no gnosticist connection; pt used to go to a [employer] gnosticist years ago; pt did not respond to question about needs, worries, or concerns;
[2022-06-08 15:48] LABS: Anion Gap 7 (5-15); BUN 22 mg/dL (7-18); Calcium,Total 7.9 mg/dL (8.5-10.1); Chloride 123 mmol/L (98-107); Creatinine, Serum 1.05 mg/dL (0.70-1.30); EST Glomerular Filtration Rate 72 mL/min (>60); Est Glom Filt Rate - Afr Amer 88 mL/min (>60); Glucose 131 mg/dL (74-106); Potassium 3.7 mmol/L (3.5-5.1); Sodium Level 153 mmol/L (136-145)
--- NOTE | 2022-06-08 16:19 | CASEMGMT ---
Social Work? SW in to meet with pt and family following review of therapy notes and information provided by that pt will need placement at nursing facility. SW introduced self and role at the hospital. Pt family agreeable to discussing discharge planning. A list of SNF providers including quality and resource use data and consistent with the patient?s preferred geographic region, medical needs, and insurance network were provided from the [employer] Guide. Family reviewed list, shared [facility] choice. [facility]. SW sent referral to [facility]. PLAN: [facility], pending acceptance and precert? KRYSTEN Laws?
[2022-06-08 19:18] LABS: Anion Gap 6 (5-15); BUN 21 mg/dL (7-18); BUN/Creat Ratio 19.4 RATIO (10-20); Calcium,Total 7.8 mg/dL (8.5-10.1); Chloride 122 mmol/L (98-107); Creatinine, Serum 1.08 mg/dL (0.70-1.30); EST Glomerular Filtration Rate 70 mL/min (>60); Est Glom Filt Rate - Afr Amer 85 mL/min (>60); Estimated Creatinine Clearance 36.16 ml/min; Glucose 156 mg/dL (74-106); Potassium 3.7 mmol/L (3.5-5.1); Sodium Level 151 mmol/L (136-145)
[2022-06-08] MEDS: Menthol/Lanolin/Calamine/Znox 113 GM Tube 1 APPLIC TOPICAL (21:07)
[2022-06-08 23:18] LABS: Anion Gap 6 (5-15); BUN 19 mg/dL (7-18); Calcium,Total 7.7 mg/dL (8.5-10.1); Chloride 121 mmol/L (98-107); EST Glomerular Filtration Rate 77 mL/min (>60); Est Glom Filt Rate - Afr Amer 93 mL/min (>60); Estimated Creatinine Clearance 39.06 ml/min; Glucose 152 mg/dL (74-106); Potassium 3.8 mmol/L (3.5-5.1); Sodium Level 150 mmol/L (136-145)
[2022-06-09 00:10] LABS: Bedside Glucose 127 mg/dL (74-106)
[2022-06-09 03:28] VITALS: BP 129/79; PULSE 84; RESP 18; TEMP 36.3; O2SAT 93
[2022-06-09] MEDS: Menthol/Lanolin/Calamine/Znox 113 GM Tube 1 APPLIC TOPICAL ×3 (06:29→21:29)
[2022-06-09 06:56] LABS: Bedside Glucose 123 mg/dL (74-106)
[2022-06-09 07:24] LABS: Absolute Lymphocyte Count 38.27 X10^3/uL (0.83-4.51); Absolute Neutrophil Count 0.6 X10^3/uL (2.0-7.7); Basophil# 0.06 X10^3/uL; Basophil% 0.2 % (0-1); Eosinophil# 0.02 X10^3/uL; Eosinophils% 0.1 % (0-5); Hematocrit 29.6 % (40-54); Hemoglobin 8.1 g/dL (13.0-16.5); Lymphocyte # 38.27 X10^3/ul (0.83-4.51); Mean Corp Hgb Conc 27.4 g/dL (32-36); Mean Corpuscular Hgb 23.1 pg (27.0-32.0); Mean Corpuscular Volume 84.3 fL (80-94); Monocyte# 0.12 X10^3/uL; Monocyte% 0.3 % (0-10); NRBC Flagged by Analyzer 0.1 % (0-5); Neutrophil # 0.56 X10^3/uL (2.7-7.7); Neutrophil % 1.3 % (47-70); POSITIVE COUNT YES; POSITIVE DIFFERENTIAL YES; POSITIVE MORPHOLOGY YES; Platelet Count 67 K/mm3 (150-450); RBC Distribution Width CV 20.7 % (11.6-14.6); RBC Distribution Width SD 61.7 fl (35.1-43.9); Red Blood Count 3.51 M/mm3 (4.6-6.2)
[2022-06-09 07:34] LABS: Differential Indicated SCAN CRITERIA MET
[2022-06-09 07:37] LABS: White Blood Count 39.1 K/mm3 (4.4-11.0)
[2022-06-09 07:45] LABS: Anion Gap 8 (5-15); BUN 17 mg/dL (7-18); BUN/Creat Ratio 17.9 RATIO (10-20); Calcium,Total 7.6 mg/dL (8.5-10.1); Chloride 117 mmol/L (98-107); Creatinine, Serum 0.95 mg/dL (0.70-1.30); EST Glomerular Filtration Rate 81 mL/min (>60); Est Glom Filt Rate - Afr Amer 98 mL/min (>60); Estimated Creatinine Clearance 41.11 ml/min; Glucose 127 mg/dL (74-106); Magnesium 2.3 mg/dL (1.6-2.6); Phosphorus 1.8 mg/dL (2.5-4.9); Potassium 3.2 mmol/L (3.5-5.1); Sodium Level 148 mmol/L (136-145)
[2022-06-09 08:08] VITALS: O2SAT 93
--- NOTE | 2022-06-09 08:24 | CASEMGMT ---
Social Work SW verified AD with pt's and daughter Pao. Pao is named agent for HCPOA. Pao brought copies of the document and gave copy to microfilm duplicating unit supervisor this day. KRYSTEN Laws
--- NOTE | 2022-06-09 08:30 | PN.HOSP_ITS ---
Subjective Subjective Follow-up pneumonia Patient seen no change in clinical condition. Sodium levels trending down potassium down to 3.1 Objective Data Objective Data Vital Signs: Vital Signs Temp Pulse Resp BP Pulse Ox O2 Del Method 97.4 F L 84 18 129/79 H 93 Room Air 06/09/22 03:28 06/09/22 03:28 06/09/22 03:28 06/09/22 03:28 06/09/22 08:08 06/09/22 08:08 Oxygen Delivery Method Room Air Weight: 46.1 kg Body Mass Index (BMI) 14.6 Intake & Output: Intake and Output for Last 24 Hours 06/07/22 06/08/22 06/09/22 23:59 23:59 23:59 Intake Total 1953.66 / 195.66 3538.42 / 3538.42 1019 / 1019 Output Total 300 / 300 Balance 1953.66 / 1953.66 3238.42 / 3238.42 1019 / 1019 Medical Nutrition Assessment Dietitian: Malnutrition Criteria Met Start: 06/06/22 13:15 Freq: Status: Active Protocol: Document 06/06/22 13:15 GABRIELA (Rec: 06/06/22 13:15 [facility] [id number]) Nutrition Malnutrition Evidence of Malnutrition Exists Yes Malnutrition (severe): Chronic Evidenced By Suboptimal Energy Intake ( Severe),Weight Loss (Severe), Physical Changes (Severe) Clinical Problem Chronic Disease or Condition Related Malnutrition Etiology related to pt c/o difficulty swallowing and inability to consume adequate nutrition to meet est nutritional needs Signs/Symptoms as evidenced by need for mech altered diet w/ HEALTH SERVICES MANAGER to follow, pt report of wt loss (unsure amount/timeframe), BMI <15, obvious fat/muscle loss in face, torso, upper/lower extremies and po intake meeting < 75% of estimated nutrition needs Status Active Problem Recommendation Dietitian Recommendations/Changes Will continue liberal Regular diet - consistency per HEALTH SERVICES MANAGER Will provide magic cup or ensure pudding w/ lunch and dinner - fortified foods as able Will order 120 ml ensure plus high protein 4x/day w/ medpass for increased nutrition if consumed Lab / Micro Data Result Diagrams: 06/09/22 06:30 06/09/22 06:30 Labs: Laboratory Results - last 24 hr 06/08/22 04:21: Diff Path Review September06/08/22 11:17: Sodium 153 H, Potassium 3.2 L, Chloride 122 H, Carbon Dioxide 24.0, Anion Gap 7, BUN 22 H, Creatinine 1.15, Estim Creat Clear Calc 33.96, Est GFR (MDRD) Af Amer 79, Est GFR (MDRD) Non-Af 65, BUN/Creatinine Ratio 19.1, Glucose 154 H, Calcium 8.2 L 06/08/22 11:19: POC Glucose 150 H 06/08/22 15:18: Sodium 153 H, Potassium 3.7, Chloride 123 H, Carbon Dioxide 23.0, Anion Gap 7, BUN 22 H, Creatinine 1.05, Estim Creat Clear Calc 37.20, Est GFR (MDRD) Af Amer 88, Est GFR (MDRD) Non-Af 72, BUN/Creatinine Ratio 21.0 H, Glucose 131 H, Calcium 7.9 L 06/08/22 18:43: Sodium 151 H, Potassium 3.7, Chloride 122 H, Carbon Dioxide 23.0, Anion Gap 6, BUN 21 H, Creatinine 1.08, Estim Creat Clear Calc 36.16, Est GFR (MDRD) Af Amer 85, Est GFR (MDRD) Non-Af 70, BUN/Creatinine Ratio 19.4, Glucose 156 H, Calcium 7.8 L 06/08/22 21:09: POC Glucose 127 H 06/08/22 22:53: Sodium 150 H, Potassium 3.8, Chloride 121 H, Carbon Dioxide 23.0, Anion Gap 6, BUN 19 H, Creatinine 1.00, Estim Creat Clear Calc 39.06, Est GFR (MDRD) Af Amer 93, Est GFR (MDRD) Non-Af 77, BUN/Creatinine Ratio 19.0, Glucose 152 H, Calcium 7.7 L 06/09/22 06:28: POC Glucose 123 H 06/09/22 06:30: WBC 39.1 H*, RBC 3.51 L, Hgb 8.1 L, Hct 29.6 L, MCV 84.3, MCH 23.1 L, MCHC 27.4 L, RDW Std Deviation 61.7 H, RDW Coeff of Florin 20.7 H, Plt Count 67 L, Immature Gran % (Auto) 0.100, Neut % (Auto) 1.3 L, Lymph % (Auto) 98.0 H, [place] % (Auto) 0.3, Eos % (Auto) 0.1, Baso % (Auto) 0.2, Absolute Neuts (auto) 0.6 L, Absolute Lymphs (auto) 38.27 H, Nucleated RBC % 0.1 06/09/22 06:30: Sodium 148 H, Potassium 3.2 L, Chloride 117 H, Carbon Dioxide 23.0, Anion Gap 8, BUN 17, Creatinine 0.95, Estim Creat Clear Calc 41.11, Est GFR (MDRD) Af Amer 98, Est GFR (MDRD) Non-Af 81, BUN/Creatinine Ratio 17.9, Glucose 127 H, Calcium 7.6 L, Phosphorus 1.8 L, Magnesium 2.3 Micro: Microbiology 06/05/22 21:56 Blood Culture (Wb) - Left Hand Blood Culture - Preliminary No growth in 48 hours. 06/05/22 22:02 Blood Culture (Wb) - Venous Blood Culture - Preliminary No growth in 48 hours. 06/05/22 19:15 Urine, Clean Catch Legionella Antigen - Final 06/05/22 19:15 Urine, Clean Catch Streptococcus pneumoniae Antigen (M - Final Physical Exam Narrative GENERAL: cooperative but frail looking HEENT: Atraumatic; poor oral dentition EYES; Anicteric, Normal Conjunctiva NECK; supple, normal thyroid, RESPIRATORY: Diminished to auscultation CARDIOVASCULAR: Regular S1 S2, GI: soft, normoactive bowel sounds, : No Renal angle tenderness; EXTREMITIES: No edema, no clubbing, MUSCULOSKELETAL: no muscle wasting NEURO: Awake; no lateralizing signs. SKIN: No Rash PSYCH; Flat affect Assessment & Plan Assessment/Plan (1) Acute dehydration: (2) Pneumonia: (3) Hypernatremia: (4) Protein calorie malnutrition: PLAN: Plan Patient is a 81-year-old gentleman with history of chronic lymphocytic leukemia presented with progressive generalized weakness. Imaging studies obtained on admission demonstrated diffuse multifocal infiltrate bilaterally diagnosis of bilateral pneumonia made admitted to regular nursing floor for further manage ment 1. Bilateral pneumonia ? Patient managed with broad-spectrum antibiotic therapy with Unasyn as well as azithromycin. Has also been placed on oxygen titrated to keep saturation greater than 90. There was a concern for possible aspiration and speech therapy consulted for speech eval 06/09/2022; patient seen remains on broad-spectrum antibiotic therapy 2. Chronic lymphocytic leukemia ? May partly explain for patient markedly elevated WBC count. Daily CBC ordered for monitoring 3. Severe hyponatremia ? Blood levels peaked at 163 has been started on D5W with every 4 hour monitoring of electrolytes ordered. So placed to nephrology Case discussed with Dr. Vu ? 06/09/2022; patient sodium levels down to 148. Still not optimal we will continue with current treatment and BMP ordered for a.m. 4. Physical deconditioning - Requested for PT OT eval and social work manager to assist with discharge planning 5. Hypokalemia -Corrected per protocol, repeat potassium ordered for a.m. 7. Severe malnutrition r/t? to pt c/o difficulty swallowing and inability to consume adequate nutrition to meet est nutritional needs as evidenced by need for [facility] altered diet w/ HEALTH SERVICES MANAGER to follow, pt report of wt loss (unsure amount/timeframe), BMI <15, obvious fat/muscle loss in face, torso, upper/lower extremies and po intake meeting < 75% of estimated nutrition needs. Patient seen by dietitian recommendations reviewed. 7. DVT prophylaxis ? [facility] L[facility] Time Spent on patient; 36 minutes Charges/Coding Visit Charges Inpatient E&M: 40347 Subs Hosp L2
[2022-06-09 09:13] LABS: Anisocytosis 2+; Differential Comment SCANNED; Macrocytosis 1+; Microcytosis 1+; Platelet Estimate MKD DEC (ADEQ)
[2022-06-09] MEDS: Enoxaparin 40 MG/0.4 ML Syringe SC (09:21)
[2022-06-09] MEDS: Ensure Plus High Protein 120 ML LIQUID PO (09:21)
[2022-06-09 09:26] VITALS: BP 119/80; PULSE 93; RESP 18; TEMP 36.8; O2SAT 97
[2022-06-09 09:28] VITALS: RESP 18
--- NOTE | 2022-06-09 10:13 | CASEMGMT ---
Social Work Tara from [facility] reached out. Pt has been accepted. SW informed anticipated discharge is tomorrow, 06/10/22. Tara to start precert this day. PLAN: [facility], precKRYSTEN Jackson
[2022-06-09] MEDS: Potassium Chloride 10mEq/100mL 10 MEQ/100 ML IV.SOLN. 100 MEQ IV BOLUS ×4 (10:43→16:07)
[2022-06-09 12:15] LABS: Bedside Glucose 149 mg/dL (74-106)
[2022-06-09 12:22] LABS: Pathologist Review Reviewed
[2022-06-09 12:22] LABS: Pathologist Review Reviewed
[2022-06-09 12:22] LABS: Pathologist Review Reviewed
[2022-06-09 12:22] LABS: Pathologist Review Reviewed
--- NOTE | 2022-06-09 16:12 | PCM.PN.REN ---
Subjective Subjective Following for hyponatremia and CUAUHTEMOC. The patient feels better. However, he still complains of anorexia. He cannot chew, so he is limited to pur?ed diet. The patient denies chest pain, shortness of breath, or nausea. Objective Data Objective Data Vital Signs: Vital Signs Temp Pulse Resp BP Pulse Ox O2 Del Method 98.2 F 93 18 119/80 97 Room Air 06/09/22 09:26 06/09/22 09:26 06/09/22 09:28 06/09/22 09:26 06/09/22 09:26 06/09/22 09:28 Oxygen Delivery Method Room Air Weight: 46.1 kg Body Mass Index (BMI) 14.6 Intake & Output: Intake and Output for Last 24 Hours 06/07/22 06/08/22 06/09/22 23:59 23:59 23:59 Intake Total 1953.66 / 1953.66 3538.42 / 3538.42 2431 / 2431 Output Total 300 / 300 Balance 1953.66 / 1953.66 3238.42 / 3238.42 2431 / 2431 Medical Nutrition Assessment Dietitian: Malnutrition Criteria Met Start: 06/06/22 13:15 Freq: Status: Active Protocol: Document 06/09/22 13:32 RMA (Rec: 06/09/22 13:33 RMA [id number]) Nutrition Malnutrition Evidence of Malnutrition Exists Yes Malnutrition (severe): Chronic Evidenced By Suboptimal Energy Intake ( Severe),Weight Loss (Severe), Physical Changes (Severe) Intake Problem Inadequate Oral Intake Etiology related to ongoing anorexia/ refusal of meals Signs/Symptoms as evidenced by less than 50% intake of meals since admission Status Active Problem Clinical Problem Chronic Disease or Condition Related Malnutrition Etiology Severe protein-calorie malnutrition in the context of chronic disease related to difficulty swallowing and inadequate oral intake Signs/Symptoms as evidenced by need for [facility] altered diet w/ ACCOUNTS PAYABLE OR RECEIVABLE CLERK to follow, pt report of wt loss (unsure amount/timeframe), BMI <15, obvious fat/muscle loss in face, torso, upper/lower extremies and po intake meeting < 50% of estimated nutrition needs Status Active Problem Recommendation Dietitian Recommendations/Changes Will continue liberal Regular diet - consistency per ACCOUNTS PAYABLE OR RECEIVABLE CLERK. Continue magic cup or ensure pudding w/ lunch and dinner - fortified foods as able. Continue 120 ml ensure plus high protein 4x/day w/ medpass for increased nutrition if consumed. Consider TF support to meet estimated energy/protein needs in view of poor/inadequate oral intake and declining weight status. Oral intake will not be sufficient to support nutrition needs/repletion. Lab / Micro Data Result Diagrams: 06/09/22 06:30 06/09/22 06:30 Labs: Laboratory Results - last 24 hr 06/05/22 16:55: Diff Path Review Reviewed 06/06/22 06:45: Diff Path Review Reviewed 06/07/22 06:10: Diff Path Review Reviewed 06/08/22 04:21: Diff Path Review Reviewed 06/08/22 18:43: Sodium 151 H, Potassium 3.7, Chloride 122 H, Carbon Dioxide 23.0, Anion Gap 6, BUN 21 H, Creatinine 1.08, Estim Creat Clear Calc 36.16, Est GFR (MDRD) Af Amer 85, Est GFR (MDRD) Non-Af 70, BUN/Creatinine Ratio 19.4, Glucose 156 H, Calcium 7.8 L 06/08/22 21:09: POC Glucose 127 H 06/08/22 22:53: Sodium 150 H, Potassium 3.8, Chloride 121 H, Carbon Dioxide 23.0, Anion Gap 6, BUN 19 H, Creatinine 1.00, Estim Creat Clear Calc 39.06, Est GFR (MDRD) Af Amer 93, Est GFR (MDRD) Non-Af 77, BUN/Creatinine Ratio 19.0, Glucose 152 H, Calcium 7.7 L 06/09/22 06:28: POC Glucose 123 H 06/09/22 06:30: WBC 39.1 H*, RBC 3.51 L, Hgb 8.1 L, Hct 29.6 L, MCV 84.3, MCH 23.1 L, MCHC 27.4 L, RDW Std Deviation 61.7 H, RDW Coeff of Florin 20.7 H, Plt Count 67 L, Immature Gran % (Auto) 0.100, Neut % (Auto) 1.3 L, Lymph % (Auto) 98.0 H, [place] % (Auto) 0.3, Eos % (Auto) 0.1, Baso % (Auto) 0.2, Absolute Neuts (auto) 0.6 L, Absolute Lymphs (auto) 38.27 H, Nucleated RBC % 0.1, Differential Comment SCANNED, Diff Path Review May foll, Platelet Estimate MKD DEC, Anisocytosis 2+, Microcytosis 1+, Macrocytosis 1+ 06/09/22 06:30: Sodium 148 H, Potassium 3.2 L, Chloride 117 H, Carbon Dioxide 23.0, Anion Gap 8, BUN 17, Creatinine 0.95, Estim Creat Clear Calc 41.11, Est GFR (MDRD) Af Amer 98, Est GFR (MDRD) Non-Af 81, BUN/Creatinine Ratio 17.9, Glucose 127 H, Calcium 7.6 L, Phosphorus 1.8 L, Magnesium 2.3 06/09/22 11:43: POC Glucose 149 H Micro: Microbiology 06/05/22 21:56 Blood Culture (Wb) - Left Hand Blood Culture - Preliminary No growth in 48 hours. 06/05/22 22:02 Blood Culture (Wb) - Venous Blood Culture - Preliminary No growth in 48 hours. 06/05/22 19:15 Urine, Clean Catch Legionella Antigen - Final 06/05/22 19:15 Urine, Clean Catch Streptococcus pneumoniae Antigen (M - Final Physical Exam Narrative General: Cachectic malnourished appearing man HEENT: Normocephalic, atraumatic. PERRLA, EOMI. Mucous membrane is moist. However, dentition is poor. Neck: Supple, no JVD. Heart: Normal S1, S2. No rubs, murmurs, or gallops. Lungs: Clear to auscultation bilaterally. Abdomen: Normal bowel sound, soft, nontender, no guarding or rebound. Extremities: No edema. There is no clubbing or cyanosis. Assessment & Plan Assessment/Plan (1) Hypernatremia: (2) CUAUHTEMOC (acute kidney injury): PLAN: Plan Impression/Plan: The patient is a 81-year-old man with history of chronic lymphocytic leukemia, thrombocytopenia, hypertension, and basal so cancer of the skin who presented to the hospital on 06/05/2022 with 2 weeks history of weakness, anorexia and dysphagia. The patient was admitted for treatment of bilateral pneumonia and dehydration. Nephrology is following for hypernatremia and CUAUHTEMOC. Hypernatremia. Hypernatremia is due to dehydration. Urinalysis shows concentrated urine on presentation. Low suspicion for diabetes insipidus. The patient has not significantly polyuric either. Serum sodium is also coming down with only 2.4 L of D5W per day. Serum sodium is 148 mmol/L today. Continue D5W for another day. Recheck serum sodium again tomorrow. If there is no further improvement in serum sodium, I will check urine osmolality, urine sodium, and urine potassium. Monitor urine output. Encourage patient to drink when he is thirsty. Acute kidney injury. Resolving. Serum creatinine peaked at 1.57 mg/dL on presentation on 06/05/2022. Serum creatinine is down to 0.95 mg/dL today. However, I suspect that serum creatinine is overestimating true GFR given very low muscle mass on exam. We can cystatin C as outpatient to more accurately determine renal function. This would not change treatment at the moment. Pneumonia. The patient is being treated with azithromycin and Unasyn as per hospital medicine service.
[2022-06-09 16:50] LABS: Bedside Glucose 93 mg/dL (74-106)
[2022-06-09 21:00] VITALS: BP 129/88; PULSE 89; RESP 16; RESP 18; TEMP 37.3; O2SAT 98
[2022-06-09 21:55] LABS: Bedside Glucose 122 mg/dL (74-106)
[2022-06-10 03:37] VITALS: BP 134/88; PULSE 83; RESP 16; TEMP 36.6; O2SAT 93
[2022-06-10 06:06] LABS: Absolute Lymphocyte Count 40.45 X10^3/uL (0.83-4.51); Absolute Neutrophil Count 0.7 X10^3/uL (2.0-7.7); Basophil# 0.06 X10^3/uL; Basophil% 0.1 % (0-1); Eosinophil# 0.03 X10^3/uL; Eosinophils% 0.1 % (0-5); Hematocrit 29.2 % (40-54); Lymphocyte # 40.45 X10^3/ul (0.83-4.51); Lymphocyte % 97.7 % (19-41); Mean Corp Hgb Conc 27.4 g/dL (32-36); Mean Corpuscular Hgb 23.1 pg (27.0-32.0); Mean Corpuscular Volume 84.4 fL (80-94); Monocyte# 0.11 X10^3/uL; Monocyte% 0.3 % (0-10); NRBC Flagged by Analyzer 0 % (0-5); Neutrophil # 0.67 X10^3/uL (2.7-7.7); Neutrophil % 1.6 % (47-70); POSITIVE COUNT YES; POSITIVE DIFFERENTIAL YES; POSITIVE MORPHOLOGY YES; Platelet Count 64 K/mm3 (150-450); RBC Distribution Width CV 21.5 % (11.6-14.6); RBC Distribution Width SD 63.1 fl (35.1-43.9); Red Blood Count 3.46 M/mm3 (4.6-6.2); White Blood Count 41.4 K/mm3 (4.4-11.0)
[2022-06-10 06:30] LABS: Differential Indicated SCAN CRITERIA MET
[2022-06-10 06:42] LABS: Anisocytosis 2+; Platelet Estimate MOD DEC (ADEQ)
[2022-06-10 06:46] LABS: Anion Gap 6 (5-15); BUN 18 mg/dL (7-18); BUN/Creat Ratio 19.5 RATIO (10-20); Calcium,Total 7.2 mg/dL (8.5-10.1); Chloride 114 mmol/L (98-107); Creatinine, Serum 0.92 mg/dL (0.70-1.30); EST Glomerular Filtration Rate 84 mL/min (>60); Est Glom Filt Rate - Afr Amer 102 mL/min (>60); Estimated Creatinine Clearance 42.45 ml/min; Glucose 110 mg/dL (74-106); Potassium 3.4 mmol/L (3.5-5.1); Sodium Level 144 mmol/L (136-145)
[2022-06-10 07:15] LABS: Bedside Glucose 115 mg/dL (74-106)
--- NOTE | 2022-06-10 08:16 | PN.HOSP_ITS ---
Subjective Subjective Follow-up pneumonia ? Patient seen per nursing staff had a relatively uneventful night. Patient platelet count continues to drop discontinue Lovenox. Sodium levels down to 144 potassium 3.4 Objective Data Objective Data Vital Signs: Vital Signs Temp Pulse Resp BP Pulse Ox O2 Del Method 98 F 83 16 134/88 H 93 Room Air 06/10/22 03:37 06/10/22 03:37 06/10/22 03:37 06/10/22 03:37 06/10/22 03:37 06/10/22 08:09 Oxygen Delivery Method Room Air Weight: 46.1 kg Body Mass Index (BMI) 14.6 Intake & Output: Intake and Output for Last 24 Hours 06/08/22 06/09/22 06/10/22 23:59 23:59 23:59 Intake Total 3538.42 / 3538.42 3148 / 3148 1112 / 1112 Output Total 300 / 300 400 / 950 1000 / 1000 Balance 3238.42 / 3238.42 2748 / 2198 112 / 112 Medical Nutrition Assessment Dietitian: Malnutrition Criteria Met Start: 06/06/22 13: 15 Freq: Status: Active Protocol: Document 06/09/22 13:32 RMA (Rec: 06/09/22 13:33 RMA [id number]) Nutrition Malnutrition Evidence of Malnutrition Exists Yes Malnutrition (severe): Chronic Evidenced By Suboptimal Energy Intake ( Severe),Weight Loss (Severe), Physical Changes (Severe) Intake Problem Inadequate Oral Intake Etiology related to ongoing anorexia/ refusal of meals Signs/Symptoms as evidenced by less than 50% intake of meals since admission Status Active Problem Clinical Problem Chronic Disease or Condition Related Malnutrition Etiology Severe protein-calorie malnutrition in the context of chronic disease related to difficulty swallowing and inadequate oral intake Signs/Symptoms as evidenced by need for mech altered diet w/ M[employer] INTELLIGENCE OFFICER to follow, pt report of wt loss (unsure amount/timeframe), BMI <15, obvious fat/muscle loss in face, torso, upper/lower extremies and po intake meeting < 50% of estimated nutrition needs Status Active Problem Recommendation Dietitian Recommendations/Changes Will continue liberal Regular diet - consistency per M[employer] INTELLIGENCE OFFICER. Continue magic cup or ensure pudding w/ lunch and dinner - fortified foods as able. Continue 120 ml ensure plus high protein 4x/day w/ medpass for increased nutrition if consumed. Consider TF support to meet estimated energy/protein needs in view of poor/inadequate oral intake and declining weight status. Oral intake will not be sufficient to support nutrition needs/repletion. Lab / Micro Data Result Diagrams: 06/10/22 05:03 06/10/22 05:03 Labs: Laboratory Results - last 24 hr 06/05/22 16:55: Diff Path Review Reviewed 06/06/22 06:45: Diff Path Review Reviewed 06/07/22 06:10: Diff Path Review Reviewed 06/08/22 04:21: Diff Path Review Reviewed 06/09/22 06:30: Differential Comment SCANNED, Diff Path Review May ld, Platelet Estimate MKD DEC, Anisocytosis 2+, Microcytosis 1+, Macrocytosis 1+ 06/09/22 11:43: POC Glucose 149 H 06/09/22 16:27: POC Glucose 93 06/09/22 21:27: POC Glucose 122 H 06/10/22 05:03: WBC 41.4 H*, RBC 3.46 L, Hgb 8.0 L, Hct 29.2 L, MCV 84.4, MCH 23.1 L, MCHC 27.4 L, RDW Std Deviation 63.1 H, RDW Coeff of Florin 21.5 H, Plt Count 64 L, Immature Gran % (Auto) 0.200, Neut % (Auto) 1.6 L, Lymph % (Auto) 97.7 H, [place] % (Auto) 0.3, Eos % (Auto) 0.1, Baso % (Auto) 0.1, Absolute Neuts (auto) 0.7 L, Absolute Lymphs (auto) 40.45 H, Nucleated RBC % 0, Diff Path Review May ld, Platelet Estimate MOD DEC, Anisocytosis 2+ 06/10/22 05:03: Sodium 144, Potassium 3.4 L, Chloride 114 H, Carbon Dioxide 24.0, Anion Gap 6, BUN 18, Creatinine 0.92, Estim Creat Clear Calc 42.45, Est GFR (MDRD) Af Amer 102, Est GFR (MDRD) Non-Af 84, BUN/Creatinine Ratio 19.5, Glucose 110 H, Calcium 7.2 L 06/10/22 06:28: POC Glucose 115 H Micro: Microbiology 06/05/22 21:56 Blood Culture (Wb) - Left Hand Blood Culture - Preliminary No growth in 48 hours. 06/05/22 22:02 Blood Culture (Wb) - Venous Blood Culture - Preliminary No growth in 48 hours. 06/05/22 19:15 Urine, Clean Catch Legionella Antigen - Final 06/05/22 19:15 Urine, Clean Catch Streptococcus pneumoniae Antigen (M - Final Physical Exam Narrative GENERAL: cooperative but frail looking HEENT: Atraumatic; poor oral dentition EYES; Anicteric, Normal Conjunctiva NECK; supple, normal thyroid, RESPIRATORY: Diminished to auscultation CARDIOVASCULAR: Regular S1 S2, GI: soft, normoactive bowel sounds, : No Renal angle tenderness; EXTREMITIES: No edema, no clubbing, MUSCULOSKELETAL: no muscle wasting NEURO: Awake; no lateralizing signs. SKIN: No Rash PSYCH; Flat affect Assessment & Plan Assessment/Plan (1) Acute dehydration: (2) Pneumonia: (3) Hypernatremia: (4) Protein calorie malnutrition: PLAN: Plan Patient is a 81-year-old gentleman with history of chronic lymphocytic leukemia presented with progressive generalized weakness. Imaging studies obtained on a dmission demonstrated diffuse multifocal infiltrate bilaterally diagnosis of bilateral pneumonia made admitted to regular nursing floor for further management 1. Bilateral pneumonia ? Patient managed with broad-spectrum antibiotic therapy with Unasyn as well as azithromycin. Has also been placed on oxygen titrated to keep saturation greater than 90. There was a concern for possible aspiration and speech therapy consulted for speech eval 06/09/2022; patient seen remains on broad-spectrum antibiotic therapy 06/10/2022; remains on supplemental oxygen 2. Chronic lymphocytic leukemia ? May partly explain for patient markedly elevated WBC count. Daily CBC ordered for monitoring 3. Severe Hypernatremia ? Blood levels peaked at 163 has been started on D5W with every 4 hour monitoring of electrolytes ordered. So placed to nephrology Case discussed with Dr. Vu ? 06/09/2022; patient sodium levels down to 148. Still not optimal we will continue with current treatment and BMP ordered for a.m. ? 06/10/2022; sodium levels down to 144 4. Physical deconditioning - Requested for PT OT eval and social media executive to assist with discharge planning 5. Hypokalemia -Corrected per protocol, repeat potassium ordered for a.m. ? 06/10/2022 potassium level still low at 3.4 additional potassium given 7. Severe malnutrition r/t? to pt c/o difficulty swallowing and inability to consume adequate nutrition to meet est nutritional needs as evidenced by need for [facility] altered diet w/ M[employer] INTELLIGENCE OFFICER to follow, pt report of wt loss (unsure amount/timeframe), BMI <15, obvious fat/muscle loss in face, torso, upper/lower extremies and po intake meeting < 75% of estimated nutrition needs. Patient seen by dietitian recommendations reviewed. 8. Thrombocytopenia ? May be related to patient underlying CLL patient is on Lovenox discontinued daily monitoring with CBC ordered 9. DVT prophylaxis ? Patient was on Lovenox discontinued in view of of his thrombocytopenia Time Spent on patient; 36 minutes Charges/Coding Visit Charges Inpatient E&M: 79398 Subs Hosp L2
[2022-06-10 08:21] VITALS: BP 115/82; PULSE 79; RESP 16; TEMP 36.9; O2SAT 92
[2022-06-10] MEDS: Ensure Plus High Protein 120 ML LIQUID PO (09:07)
[2022-06-10 10:10] VITALS: O2SAT 91
--- NOTE | 2022-06-10 10:28 | PCM.PN.REN ---
Subjective Subjective Following for hyponatremia and CUAUHTEMOC. No new complaints. He denies chest pain, shortness of breath, or nausea. Appetite somewhat improved. Objective Data Objective Data Vital Signs: Vital Signs Temp Pulse Resp BP Pulse Ox O2 Del Method 98.4 F 79 16 115/82 H 92 Room Air 06/10/22 08:21 06/10/22 08:21 06/10/22 08:21 06/10/22 08:21 06/10/22 08:21 06/10/22 08:21 Oxygen Delivery Method Room Air Weight: 46.1 kg Body Mass Index (BMI) 14.6 Intake & Output: Intake and Output for Last 24 Hours 06/08/22 06/09/22 06/10/22 23:59 23:59 23:59 Intake Total 3538.42 / 3538.42 3148 / 3148 1224 / 1224 Output Total 300 / 300 400 / 950 1000 / 1000 Balance 3238.42 / 3238.42 2748 / 2198 224 / 224 Medical Nutrition Assessment Dietitian: Malnutrition Criteria Met Start: 06/06/22 13:15 Freq: Status: Active Protocol: Document 06/09/22 13:32 RMA (Rec: 06/09/22 13:33 RMA [id number]) Nutrition Malnutrition Evidence of Malnutrition Exists Yes Malnutrition (severe): Chronic Evidenced By Suboptimal Energy Intake ( Severe),Weight Loss (Severe), Physical Changes (Severe) Intake Problem Inadequate Oral Intake Etiology related to ongoing anorexia/ refusal of meals Signs/Symptoms as evidenced by less than 50% intake of meals since admission Status Active Problem Clinical Problem Chronic Disease or Condition Related Malnutrition Etiology Severe protein-calorie malnutrition in the context of chronic disease related to difficulty swallowing and inadequate oral intake Signs/Symptoms as evidenced by need for [facility] altered diet w/ [employer]EDGE to follow, pt report of wt loss (unsure amount/timeframe), BMI <15, obvious fat/muscle loss in face, torso, upper/lower extremies and po intake meeting < 50% of estimated nutrition needs Status Active Problem Recommendation Dietitian Recommendations/Changes Will continue liberal Regular diet - consistency per [employer] OYSTER DREDGE. Continue magic cup or ensure pudding w/ lunch and dinner - fortified foods as able. Continue 120 ml ensure plus high protein 4x/day w/ medpass for increased nutrition if consumed. Consider TF support to meet estimated energy/protein needs in view of poor/inadequate oral intake and declining weight status. Oral intake will not be sufficient to support nutrition needs/repletion. Lab / Micro Data Result Diagrams: 06/11/22 05:30 06/11/22 05:30 Labs: Laboratory Results - last 24 hr 06/05/22 16:55: Diff Path Review Reviewed 06/06/22 06:45: Diff Path Review Reviewed 06/07/22 06:10: Diff Path Review Reviewed 06/08/22 04:21: Diff Path Review Reviewed 06/09/22 11:43: POC Glucose 149 H 06/09/22 16:27: POC Glucose 93 06/09/22 21:27: POC Glucose 122 H 06/10/22 05:03: WBC 41.4 H*, RBC 3.46 L, Hgb 8.0 L, Hct 29.2 L, MCV 84.4, MCH 23.1 L, MCHC 27.4 L, RDW Std Deviation 63.1 H, RDW Coeff of Florin 21.5 H, Plt Count 64 L, Immature Gran % (Auto) 0.200, Neut % (Auto) 1.6 L, Lymph % (Auto) 97.7 H, [place] % (Auto) 0.3, Eos % (Auto) 0.1, Baso % (Auto) 0.1, Absolute Neuts (auto) 0.7 L, Absolute Lymphs (auto) 40.45 H, Nucleated RBC % 0, Diff Path Review May , Platelet Estimate MOD DEC, Anisocytosis 2+ 06/10/22 05:03: Sodium 144, Potassium 3.4 L, Chloride 114 H, Carbon Dioxide 24.0, Anion Gap 6, BUN 18, Creatinine 0.92, Estim Creat Clear Calc 42.45, Est GFR (MDRD) Af Amer 102, Est GFR (MDRD) Non-Af 84, BUN/Creatinine Ratio 19.5, Glucose 110 H, Calcium 7.2 L 06/10/22 06:28: POC Glucose 115 H Micro: Microbiology 06/05/22 21:56 Blood Culture (Wb) - Left Hand Blood Culture - Preliminary No growth in 48 hours. 06/05/22 22:02 Blood Culture (Wb) - Venous Blood Culture - Preliminary No growth in 48 hours. 06/05/22 19:15 Urine, Clean Catch Legionella Antigen - Final 06/05/22 19:15 Urine, Clean Catch Streptococcus pneumoniae Antigen (M - Final Physical Exam Narrative General: Cachectic malnourished appearing man HEENT: Normocephalic, atraumatic. PERRLA, EOMI. Mucous membrane is moist. However, dentition is poor. Neck: Supple, no JVD. Heart: Normal S1, S2. No rubs, murmurs, or gallops. Lungs: Clear to auscultation bilaterally. Abdomen: Normal bowel sound, soft, nontender, no guarding or rebound. Extremities: No edema. There is no clubbing or cyanosis. Assessment & Plan Assessment/Plan (1) Hypernatremia: (2) CUAUHTEMOC (acute kidney injury): PLAN: Plan Impression/Plan: The patient is a 81-year-old man with history of chronic lymphocytic leukemia, thrombocytopenia, hypertension, and basal so cancer of the skin who presented to the hospital on 06/05/2022 with 2 weeks history of weakness, anorexia and dysphagia. The patient was admitted for treatment of bilateral pneumonia and dehydration. Nephrology is following for hypernatremia and CUAUHTEMOC. Hypernatremia. Hypernatremia is due to dehydration. Urinalysis shows concentrated urine on presentation. Low suspicion for diabetes insipidus. The patient has not significantly polyuric either. Serum sodium is also coming down with 2.4 L of D5W per day in addition to oral water intake. Serum sodium is 144 mmol/L today. The patient is scheduled to be discharged to SNF today. Continue D5W until discharged to SNF. Recheck serum sodium again as outpatient. Encourage patient to drink when he is thirsty. Acute kidney injury. Resolving. Serum creatinine peaked at 1.57 mg/dL on presentation on 06/05/2022. Serum creatinine is down to 0.92 mg/dL today. However, I suspect that serum creatinine is overestimating true GFR given very low muscle mass on exam. We can check cystatin C as outpatient to more accurately determine renal function. This would not change treatment at the moment. Pneumonia. The patient is being treated with azithromycin and Unasyn as per hospital medicine service.
--- NOTE | 2022-06-10 10:47 | TREXTCAR_ITS ---
Diet Diet Order/Speech Therapy: 06/06/22 11:04 Diet: Regular - General Food consistency:: Soft & Bite Sized Liquid Consistency:: Regular/Thin Type of Dietary Supplement:: MC or EP w/ L&D Is pt able to select menu?: No Diet Comments: direct supervision, liquids by tsp only, fortified food Routine Orders/Code Status Code Status: DNRCC-A Wound(s) right outer knee: Wound Type: Skin Tear Therapies Physical Therapy: Eval and Treat Occupational Therapy: Eval and Treat Problem/Diagnosis (1) Hypernatremia: Status: Acute Code(s): E87.0 - Hyperosmolality and hypernatremia (2) CUAUHTEMOC (acute kidney injury): Status: Acute Code(s): N17.9 - Acute kidney failure, unspecified Plan Patient is a 81-year-old gentleman with history of chronic lymphocytic leukemia presented with progressive generalized weakness. Imaging studies obtained on admission demonstrated diffuse multifocal infiltrate bilaterally diagnosis of bilateral pneumonia made admitted to regular nursing floor for further management 1. Bilateral pneumonia ? Patient managed with broad-spectrum antibiotic therapy with Unasyn as well as azithromycin. Has also been placed on oxygen titrated to keep saturation greater than 90. There was a concern for possible aspiration and speech therapy consulted for speech eval 06/09/2022; patient seen remains on broad-spectrum antibiotic therapy 06/10/2022; remains on supplemental oxygen 2. Chronic lymphocytic leukemia ? May partly explain for patient markedly elevated WBC count. Daily CBC ordered for monitoring 3. Severe Hypernatremia ? Blood levels peaked at 163 has been started on D5W with every 4 hour monitoring of electrolytes ordered. So placed to nephrology Case discussed with Dr. Vu ? 06/09/2022; patient sodium levels down to 148. Still not optimal we will continue with current treatment and BMP ordered for a.m. ? 06/10/2022; sodium levels down to 144 4. Physical deconditioning - Requested for PT OT eval and social worker health services to assist with discharge planning 5. Hypokalemia -Corrected per protocol, repeat potassium ordered for a.m. ? 06/10/2022 potassium level still low at 3.4 additional potassium given 7. Severe malnutrition r/t? to pt c/o difficulty swallowing and inability to consume adequate nutrition to meet est nutritional needs as evidenced by need for [facility] altered diet w/ AIRCRAFT INSTRUMENT MECHANIC to follow, pt report of wt loss (unsure amount/timeframe), BMI <15, obvious fat/muscle loss in face, torso, upper/lower extremies and po intake meeting < 75% of estimated nutrition needs. Patient seen by dietitian recommendations reviewed. 8. Thrombocytopenia ? May be related to patient underlying CLL patient is on Lovenox discontinued daily monitoring with CBC ordered 9. DVT prophylaxis ? Patient was on Lovenox discontinued in view of of his thrombocytopenia Time Spent on patient; 36 minutes Allergies/Procedures Done in Hospital Allergies chocolate flavor Adverse Reaction (Verified 06/08/22 18:45) PT UNSURE OF REACTION Type of Care/Length of Stay Estimated LOS: Convalescent Care Less Than 30 days Type of Care Needed: Skilled Rehab Potential: Good Prognosis: Good Additional Orders/Day of Discharge Day of Discharge: 06/10/22 Dietary and Speech Recommendations Dietitian Recommendations/Changes: Will continue liberal Regular diet - consistency per AIRCRAFT INSTRUMENT MECHANIC. Continue magic cup or ensure pudding w/ lunch and dinner - fortified foods as able. Continue 120 ml ensure plus high protein 4x/day w/ medpass for increased nutrition if consumed. Consider TF support to meet estimated energy/protein needs in view of poor/inadequate oral intake and declining weight status. Oral intake will not be sufficient to support nutrition needs/repletion. Discharge Plan Admission Admit Date/Time: 06/05/22 21:09 Attending Provider: Camacho Mckeon Primary Care Provider: Andra Dasilva Consulting Providers: Braden Ridley ; Dax Colbert ; Vanessa Reyes Discharge Orders/Prescriptions Prescriptions: New albuterol sulfate 2.5 mg /3 mL (0.083 %) Solution For Nebulization 2.5 mg inhalation Q2H PRN PRN (Reason: Shortness of Breath/Wheezing) Qty: 0 0RF menthol-zinc oxide [Calmoseptine] 0.44-20.6 % Ointment 1 applic topical TID Qty: 0 0RF Protocol: *Topical Application Instructions APPLICATION INSTRUCTIONS: carroll rectal area Ensure Plus High Protein 0.08 gram-1.5 kcal/mL Liquid 120 ml PO 4X/DAY Qty: 0 0RF amoxicillin-pot clavulanate [Augmentin] 500-125 mg tablet 1 tab PO Q12H Qty: 14 0RF azithromycin [Zithromax] 500 mg tablet 500 mg PO DAILY 3 Days Qty: 3 0RF Continued lidocaine HCl [Lidocaine Viscous] 2 % solution 1 applic PO 4X/DAY PRN (Reason: SORE MOUTH) Rx Instructions: Mix half teaspoon with 1 teaspoon maalox and coat mouth 4 times daily as needed for sore mouth. cholecalciferol (vitamin D3) [Vitamin D3] 25 mcg (1,000 unit) Tablet 25 mcg PO DAILY Referrals / Follow Up: Andra Dasilva MD [Primary Care Provider] - Within 2 Weeks Disposition Disposition (needs filled in before D/C Order can be placed): [facility]
--- NOTE | 2022-06-10 10:49 | CASEMGMT ---
Addendum entered by Leida Restrepo 06/10/22 11:35: Speech therapy asked SW to delay family in picking up pt for transport as pt had swallow study this morning and it has not yet been reviewed. SW called pt daughter Pao, and informed of pending tests needing reviewed. Pao voiced understanding and willing to arrive to transport pt at 2:30-3pm this afternoon rather than 1pm. KRYSTEN Laws Original Note: Social Work SW received message from Bradley Porter that precert has been obtained. SW informed MD Mckeon, who stated plans to d/c pt this day. SW informed Bradley porter that pt is d/c today. SW called pt daughter, Pao, to inform of d/c/. Pao voiced intent to transport pt to SNF to avoid Ambulance bill. SW shared if family is present at [facility] by 1pm that would give appropriate time to complete all d/c paperwork. PLAN: KRYSTEN Ball
--- NOTE | 2022-06-10 10:52 | PCM.DC.SUM ---
Providers Date of Admission: 06/05/22 Date of Discharge: 06/10/22 Primary Care Physician: Dr. Andra Dasilva MD Consultations 06/08/22 10:45 Consult: Nephrology Routine Consulting Provider: Vanessa Reyes Reason for Consult: hypernatremia EMERGENT Consult: No MD Notified: Yes Date Notified: 06/08/22 Time Notified: 10:45 Method of Notification: Verbal Reason For Visit: BILATERAL PNEUMONIA Diagnosis Discharge Diagnosis (1) Hypernatremia: Status: Acute Code(s): E87.0 - Hyperosmolality and hypernatremia (2) CUAUHTEMOC (acute kidney injury): Status: Acute Code(s): N17.9 - Acute kidney failure, unspecified Plan Patient is a 81-year-old gentleman with history of chronic lymphocytic leukemia presented with progressive generalized weakness. Imaging studies obtained on admission demonstrated diffuse multifocal infiltrate bilaterally diagnosis of bilateral pneumonia made admitted to regular nursing floor for further management 1. Bilateral pneumonia ? Patient managed with broad-spectrum antibiotic therapy with Unasyn as well as azithromycin. Has also been placed on oxygen titrated to keep saturation greater than 90. There was a concern for possible aspiration and speech therapy consulted for speech eval 06/09/2022; patient seen remains on broad-spectrum antibiotic therapy 06/10/2022; remains on supplemental oxygen 2. Chronic lymphocytic leukemia ? May partly explain for patient markedly elevated WBC count. Daily CBC ordered for monitoring 3. Severe Hypernatremia ? Blood levels peaked at 163 has been started on D5W with every 4 hour monitoring of electrolytes ordered. So placed to nephrology Case discussed with Dr. Vu ? 06/09/2022; patient sodium levels down to 148. Still not optimal we will continue with current treatment and BMP ordered for a.m. ? 06/10/2022; sodium levels down to 144 4. Physical deconditioning - Requested for PT OT eval and social service assistant to assist with discharge planning 5. Hypokalemia -Corrected per protocol, repeat potassium ordered for a.m. ? 06/10/2022 potassium level still low at 3.4 additional potassium given 7. Severe malnutrition r/t? to pt c/o difficulty swallowing and inability to consume adequate nutrition to meet est nutritional needs as evidenced by need for [facility] altered diet w/ CORPORATE AFFAIRS MANAGER to follow, pt report of wt loss (unsure amount/timeframe), BMI <15, obvious fat/muscle loss in face, torso, upper/lower extremies and po intake meeting < 75% of estimated nutrition needs. Patient seen by dietitian recommendations reviewed. 8. Thrombocytopenia ? May be related to patient underlying CLL patient is on Lovenox discontinued daily monitoring with CBC ordered 9. DVT prophylaxis ? Patient was on Lovenox discontinued in view of of his thrombocytopenia Time Spent on patient; 36 minutes Medications at Discharge Home Medications cholecalciferol (vitamin D3) 25 mcg (1,000 unit) tablet (Vitamin D3) 25 mcg PO DAILY SUPPLEMENT 06/05/22 lidocaine HCl 2 % mucosal solution (Lidocaine Viscous) 1 applic PO 4X/DAY PRN SORE MOUTH 06/05/22 albuterol sulfate 2.5 mg/3 mL (0.083 %) solution for nebulization 2.5 mg (3 mL) inhalation Q2H PRN PRN Shortness of Breath/Wheezing #0 mL 06/10/22 amoxicillin 500 mg-potassium clavulanate 125 mg tablet (Augmentin) 1 tab PO Q12H #14 tabs 06/10/22 azithromycin 500 mg tablet (Zithromax) 500 mg PO DAILY 3 days #3 tabs 06/10/22 food supplemt, lactose-reduced 0.08 gram-1.5 kcal/mL oral liquid (Ensure Plus High Protein) 120 ml PO 4X/DAY #0 mL 06/10/22 menthol 0.44 %-zinc oxide 20.6 % topical ointment (Calmoseptine) 1 applic topical TID #0 grams 06/10/22 Hospital Course Summary of Care Provided Minutes Spent on Discharge: 36 Physical Exam Narrative GENERAL: cooperative but frail looking HEENT: Atraumatic; poor oral dentition EYES; Anicteric, Normal Conjunctiva NECK; supple, normal thyroid, RESPIRATORY: Diminished to auscultation CARDIOVASCULAR: Regular S1 S2, GI: soft, normoactive bowel sounds, : No Renal angle tenderness; EXTREMITIES: No edema, no clubbing, MUSCULOSKELETAL: no muscle wasting NEURO: Awake; no lateralizing signs. SKIN: No Rash PSYCH; Flat affect Medical Records Data Medical Nutrition Assessment Dietitian: Malnutrition Criteria Met Start: 06/06/22 13:15 Freq: Status: Active Protocol: Document 06/09/22 13:32 RMA (Rec: 06/09/22 13:33 RMA [id number]) Nutrition Malnutrition Evidence of Malnutrition Exists Yes Malnutrition (severe): Chronic Evidenced By Suboptimal Energy Intake ( Severe),Weight Loss (Severe), Physical Changes (Severe) Intake Problem Inadequate Oral Intake Etiology related to ongoing anorexia/ refusal of meals Signs/Symptoms as evidenced by less than 50% intake of meals since admission Status Active Problem Clinical Problem Chronic Disease or Condition Related Malnutrition Etiology Severe protein-calorie malnutrition in the context of chronic disease related to difficulty swallowing and inadequate oral intake Signs/Symptoms as evidenced by need for [facility] altered diet w/ CORPORATE AFFAIRS MANAGER to follow, pt report of wt loss (unsure amount/timeframe), BMI <15, obvious fat/muscle loss in face, torso, upper/lower extremies and po intake meeting < 50% of estimated nutrition needs Status Active Problem Recommendation Dietitian Recommendations/Changes Will continue liberal Regular diet - consistency per CORPORATE AFFAIRS MANAGER. Continue magic cup or ensure pudding w/ lunch and dinner - fortified foods as able. Continue 120 ml ensure plus high protein 4x/day w/ medpass for increased nutrition if consumed. Consider TF support to meet estimated energy/protein needs in view of poor/inadequate oral intake and declining weight status. Oral intake will not be sufficient to support nutrition needs/repletion. Weight / BMI Weight Weight: 46.1 kg Body Mass Index (BMI) 14.6 ABG / Lab / Microbiology Data Result Diagrams: 06/10/22 05:03 06/10/22 05:03 Laboratory: Laboratory Results - last 24 hr 06/05/22 16:55: Diff Path Review Reviewed 06/06/22 06:45: Diff Path Review Reviewed 06/07/22 06:10: Diff Path Review Reviewed 06/08/22 04:21: Diff Path Review Reviewed 06/09/22 11:43: POC Glucose 149 H 06/09/22 16:27: POC Glucose 93 06/09/22 21:27: POC Glucose 122 H 06/10/22 05:03: WBC 41.4 H*, RBC 3.46 L, Hgb 8.0 L, Hct 29.2 L, MCV 84.4, MCH 23.1 L, MCHC 27.4 L, RDW Std Deviation 63.1 H, RDW Coeff of Florin 21.5 H, Plt Count 64 L, Immature Gran % (Auto) 0.200, Neut % (Auto) 1.6 L, Lymph % (Auto) 97.7 H, Coleman % (Auto) 0.3, Eos % (Auto) 0.1, Baso % (Auto) 0.1, Absolute Neuts (auto) 0.7 L, Absolute Lymphs (auto) 40.45 H, Nucleated RBC % 0, Diff Path Review May foll, Platelet Estimate MOD DEC, Anisocytosis 2+ 06/10/22 05:03: Sodium 144, Potassium 3.4 L, Chloride 114 H, Carbon Dioxide 24.0, Anion Gap 6, BUN 18, Creatinine 0.92, Estim Creat Clear Calc 42.45, Est GFR (MDRD) Af Amer 102, Est GFR (MDRD) Non-Af 84, BUN/Creatinine Ratio 19.5, Glucose 110 H, Calcium 7.2 L 06/10/22 06:28: POC Glucose 115 H Microbiology: Microbiology 06/05/22 21:56 Blood Culture (Wb) - Left Hand Blood Culture - Preliminary No growth in 48 hours. 06/05/22 22:02 Blood Culture (Wb) - Venous Blood Culture - Preliminary No growth in 48 hours. 06/05/22 19:15 Urine, Clean Catch Legionella Antigen - Final 06/05/22 19:15 Urine, Clean Catch Streptococcus pneumoniae Antigen (M - Final D/C Instructions Discharge Diet: No restrictions Discharge Activity: Return to Normal Activity Call your doctor if you observe: Fever of 101 or Higher, Shortness of breath, Fainting spells and Chest pain Meaningful Use Info Meaningful Use Diagnoses (Choose all that apply): None applicable Discharge Plan Admission Admit Date/Time: 06/05/22 21:09 Attending Provider: Camacho Mckeon Primary Care Provider: Andra Dasilva Consulting Providers: Braden Ridley ; Dax Colbert ; Vanessa Reyes Discharge Orders/Prescriptions Prescriptions: New albuterol sulfate 2.5 mg /3 mL (0.083 %) Solution For Nebulization 2.5 mg inhalation Q2H PRN PRN (Reason: Shortness of Breath/Wheezing) Qty: 0 0RF menthol-zinc oxide [Calmoseptine] 0.44-20.6 % Ointment 1 applic topical TID Qty: 0 0RF Protocol: *Topical Application Instructions APPLICATION INSTRUCTIONS: carroll rectal area Ensure Plus High Protein 0.08 gram-1.5 kcal/mL Liquid 120 ml PO 4X/DAY Qty: 0 0RF amoxicillin-pot clavulanate [Augmentin] 500-125 mg tablet 1 tab PO Q12H Qty: 14 0RF azithromycin [Zithromax] 500 mg tablet 500 mg PO DAILY 3 Days Qty: 3 0RF Continued lidocaine HCl [Lidocaine Viscous] 2 % solution 1 applic PO 4X/DAY PRN (Reason: SORE MOUTH) Rx Instructions: Mix half teaspoon with 1 teaspoon maalox and coat mouth 4 times daily as needed for sore mouth. cholecalciferol (vitamin D3) [Vitamin D3] 25 mcg (1,000 unit) Tablet 25 mcg PO DAILY Referrals / Follow Up: Andra Dasilva MD [Primary Care Provider] - Within 2 Weeks Disposition Disposition (needs filled in before D/C Order can be placed): Shelter Facility Charges/Coding Visit Charges Inpatient E&M: 73777 Disch Hosp >30min
[2022-06-10] MEDS: Insulin Lispro 100 UNIT/ML INSULN.PEN SC (11:23)
[2022-06-10 11:27] VITALS: BP 126/87; PULSE 86; RESP 16; TEMP 36.7; O2SAT 96
--- NOTE | 2022-06-10 11:42 | CASEMGMT ---
Social Work? KAT notified pt and pt family of discharge to [facility] today. KAT completed 7000 convalescent form in [facility]. Pt family is planning to pick pt up for transport to SNF around 2;30-3:00 pm today. KAT faxed all discharge orders to [facility] via [employer] and notified of discharge time. KAT notified pt nurse of transport time. KAT made copies of discharge orders and placed on pt chart. Sent original orders in envelope with pt upon discharge.?? Disposition: [facility], skilled, convalescent, level of care? KRYSTEN Laws?
[2022-06-10 11:46] LABS: Bedside Glucose 156 mg/dL (74-106)
--- NOTE | 2022-06-10 12:00 | ST.MBS ---
Modified Barium Swallow - Patient Information Study Date: 06/10/22 Study Time: 10:30 Direct Billable Minutes: 180 Total Minutes procedure & reportin Diagnosis: CUAUHTEMOC (N17.9), MALNUTRITION (E46), ACUTE DEHYDRATION (E86.0) Referring Physician: Camacho Mckeon Reason for Referral: Objectively assess swallow function, risk for aspiration, and determine recommendations for least restrictive diet textures and compensatory strategies to improve safety of swallow. Medical History: Eliecer Hernandez is a 81yo M with a significant history of CLL, skin cancer status post resection and grafting who presented to the emergency department with 2 weeks of progressively worsening weakness. Reports lightheadedness, blurry vision and unsteady gait. Per hospitalist H&P - patient is unable to swallow and anything he tries to eat or drinks comes right back up. Patient w/ painful oral mucosa and swallowing issues w/ his PCP. Ordered oral lidocaine and Biotene. Severely elevated white count w/ ED physician discussed the case with oncology on-call who recommended some labs and also recommended that a CT scan of chest to be obtained after hydration to rule out any mediastinal lymph adenopathy that may be impacting swallowing. ST was consulted d/t to concerns for swallowing and failing nursing screening. Current Diet Ordered: SOFT AND BITE SIZE TEXTURES / THIN LIQUIDS Mental Status: Impaired Respiratory Status: Oxygenating on Room Air - Penetration-Aspiration Scale Penetration-Aspiration Scale: OBJECTIVE ASSESSMENT OF SWALLOW FUNCTION (QUANTITATIVE ? PER TRIAL): PENETRATION / ASPIRATION SCALE (BAUTISTA): 1 = does not enter airway 2 = enters airway/above vocal folds/ejected 3 = enters airway/above vocal folds/not ejected 4 = enters airway/contacts vocal folds/ejected 5 = enters airway/contacts vocal folds/not ejected 6 = enters airway/below vocal folds/ejected 7 = enters airway/below vocal folds/not ejected despite effort 8 = enters airway/below vocal folds/no effort VIDEOFLOROSCOPIC SCALE SCORE (BAUTISTA): Grade I = aspiration of material that has penetrated into the laryngeal vestibule, intact cough reflex Grade II = aspiration < 10 % of the bolus, intact cough reflex Grade III = aspiration of < 10 % of the bolus, reduced cough reflex or aspiration of > 10 % of the bolus, intact cough reflex Grade IV = aspiration of > 10 % of the bolus, reduced cough reflex - Penetration-Aspiration Scale Score Thin Liquid via teaspoon Comment: 1/2 tsp of thin - did not score as patient did not elicit swallow Thin Liquid via teaspoon Trial 2 Comment: 1/2 tsp of thin - did not score as patient did not elicit swallow Thin Liquid via small single sip from cup Result: 3= enters airways/above vocal folds/not ejected Thin Liquid via single sip from straw Comment: ~1/2 tsp of thin via straw w/ patient attempting to elicit swallow however was unsuccessful. [place] Thick Liquid via teaspoon Result: 5= enters airways/contacts vocal folds/not ejected Honey Thick Liquid via teaspoon Result: 7= enters airways/below vocal folds/not ejected despite effort Honey Thick Liquid via teaspoon Trial 2 Result: 7= enters airways/below vocal folds/not ejected despite effort Pudding Result: 1= does not enter airway Comment: significant pharyngeal retention within the vallecule that was unable to be cleared - Oral Phase Labial Seal: Escape beyond mid-chin Tongue Control During Bolus Hold: Escape to lateral buccal cavity/floor of mouth Bolus Transport/Lingual Motion: Repetitive/disorganized tongue motion Oral Residue: Residue collection on oral structures - Pharyngeal Phase Initiation of Pharyngeal Swallow: Bolus head in pyriforms Soft Palate Elevation: No bolus between soft palate and pharyngeal wall Laryngeal Elevation: Min superior movement thyroid cart/min apprx aryte cart-epig petiole Anterior Hyoid Excursion: Partial anterior movement Epiglottic Movement: Partial inversion Laryngeal Vestibule Closure at Height of Swallow: Incomplete; narrow column of air/contrast in laryngeal vestibule Pharyngeal Stripping Wave: Present - diminished Pharyngoesophageal Segment Opening: Parital distension and partial duration; parital obstruction of flow Tongue Base Retraction: Wide column of contrast between tongue base & post. pharyngeal wall Pharyngeal Residue: Majority of contrast within or on pharyngeal structures - Esophageal Phase Esophageal Clearance: Esophageal retention - Treatment Strategies Effects of treatment strategies attemped:: cough and re-swallow = not effective - Diagnosis/Impression Diagnosis: SEVERE OROPHARYNGEAL DYSPHAGIA R13.12 Impression: Oral phase primarily marked by... - anterior spillage beyond mid-chin due to insufficient labial control. Patient leaning forward during the study requiring frequent verbal and tactile cueing to sit upright during study. Suspect poor body position is due to generalized weakness secondary to dehydration and malnutrition. All consistences fell out of patient's mouth d/t body positioning and impaired labial seal. - trialed 1/2 tsp of puree consistency w/ repetitive and disorganized tongue motion observed. Patient w/ severely impaired AP transportation w/ lingual pumping observed. Lingual pumping contributing to poor oral clearance. - DROP WIRE BUILDER deferred trials of solid foods d/t disorganized chewing, repetitive tongue motion and poor AP transportation. Pharyngeal phase primarily marked by... - reduced closure of the airway during deglutition attributed to reduced laryngeal elevation and reduced anterior hyoid excursion resulting in insufficient epiglottic inversion and poor laryngeal vestibule closure. Penetration w/ thin liquids via tsp and cup was observed, cannot formally rule out aspiration d/t body habitus. Aspiration of nectar thick liquids and honey thick liquids was observed. Patient is at high risk of post prandial aspiration d/t severely impaired pharyngeal motility. - poor pharyngeal motility attributed to reduced tongue base retraction and reduced posterior pharyngeal stripping wave action resulting in pharyngeal retention in the valleculae. DROP WIRE BUILDER cued patient to cough and re-swallow w/ little to no improvement in pharyngeal retention. Cough weak and ineffective. * During several trials, patient did not elicit a swallow w/ thin liquids via tsp, cup and straw. Poor oral awareness w/ no attempt to elicit a swallow. These trials were not scored. - Recommendations Diet: NPO Comment: Due to severity of oropharyngeal dysphagia, recommending NPO w/ alternative means of primary nutrition and hydration. DROP WIRE BUILDER spoke w/ hospitalist who agreed to communicate with patient and family on further intervention / treatment. Recommend Repeat Modified Barium Swallow: Yes Need for Skilled Speech Therapy Services: Yes Comment: Will recommend the patient for dysphagia therapy to address severe deficits in oropharyngeal swallow function. Would consider the patient for oropharyngeal strengthening to improve optimal swallow function including lingual coordination, laryngeal elevation, tongue base retraction, hyoid excursion and epiglottic inversion. If deemed clinically appropriate by treating DROP WIRE BUILDER, will additionally recommend PO trials to provide increase opportunities for swallowing. Would not recommended advancing patient to PO diet prior to repeat MBSS. Recommended Referrals: GI Consult Education Completed: 1. Described result of evaluation., 2. Pt understands evaluation & agrees with goals and treatment plan. - Status Active ST Patient: Active - Contact Information [facility] Speech Therapy:: Farnaz Pérez M.A. [facility]-DROP WIRE BUILDER Speech-Language Pathologist [facility] [address] [place] [address] [email or web address] [phone] 06/10/22 13:40
--- NOTE | 2022-06-10 14:26 | PHA.DC.MR ---
Pharmacy Service has performed discharge medication reconciliation for this patient. The patient's discharge medication list was reviewed for discrepancies and discrepancies were resolved. Home Medications cholecalciferol (vitamin D3) 25 mcg (1,000 unit) tablet (Vitamin D3) 25 mcg PO DAILY SUPPLEMENT 06/05/22 lidocaine HCl 2 % mucosal solution (Lidocaine Viscous) 1 applic PO 4X/DAY PRN SORE MOUTH 06/05/22 albuterol sulfate 2.5 mg/3 mL (0.083 %) solution for nebulization 2.5 mg (3 mL) inhalation Q2H PRN PRN Shortness of Breath/Wheezing #0 mL 06/10/22 amoxicillin 500 mg-potassium clavulanate 125 mg tablet (Augmentin) 1 tab PO Q12H #14 tabs 06/10/22 azithromycin 500 mg tablet (Zithromax) 500 mg PO DAILY 3 days #3 tabs 06/10/22 food supplemt, lactose-reduced 0.08 gram-1.5 kcal/mL oral liquid (Ensure Plus High Protein) 120 ml PO 4X/DAY #0 mL 06/10/22 menthol 0.44 %-zinc oxide 20.6 % topical ointment (Calmoseptine) 1 applic topical TID #0 grams 06/10/22
[2022-06-10 15:05] VITALS: BP 134/77; PULSE 72; RESP 16; TEMP 36.9; O2SAT 93
[2022-06-10 16:25] LABS: Bedside Glucose 113 mg/dL (74-106)
--- NOTE | 2022-06-10 16:41 | CON.PCM.GI_ITS ---
HPI Consult Data Date of Consult: 06/10/22 HPI Narrative Reason for Consultation: dysphagia HPI Narrative: NYA ALATORRE, is a 81 M with a significant history of CLL, skin cancer status post resection and grafting who presented to the emergency department with 2 weeks of progressively worsening weakness.? Associated with symptoms is ano rexia.? Patient is unable to swallow.? Anything he tries to eat or drinks comes right back up.? Also he reports dysgeusia. Further patient reports lightheadedness, and blurry vision.? Also he has uns teady gait. Because with a painful oral mucosa and swallowing issues his PCP? ordered oral lidocaine and Biotene.Because of severely elevated white count Emergency Department doctor? discussed the case with oncology on-call who recommended some labs and also recommended that a CT scan of chest? be obtained after hydration to rule out any mediastinal lymph adenopathy that may be impacting swallowing. He was noted to have decreased swallowing effectiveness and aspiration. I was consulted for PEG placement [facility] Medical History (Updated 06/08/22 @ 11:[address] Vanessa Reyes MD) Cholelithiasis Hypertension Leukemia Thrombocytopenia Home Medications cholecalciferol (vitamin D3) 25 mcg (1,000 unit) tablet (Vitamin D3) 25 mcg PO DAILY SUPPLEMENT 06/05/22 [History Last Taken 06/04/22] lidocaine HCl 2 % mucosal solution (Lidocaine Viscous) 1 applic PO 4X/DAY PRN SORE MOUTH 06/05/22 [History Last Taken 06/04/22] albuterol sulfate 2.5 mg/3 mL (0.083 %) solution for nebulization 2.5 mg (3 mL) inhalation Q2H PRN PRN Shortness of Breath/Wheezing #0 mL 06/10/22 [Rx Last Taken Unknown] amoxicillin 500 mg-potassium clavulanate 125 mg tablet (Augmentin) 1 tab PO Q12H #14 tabs 06/10/22 [Rx Last Taken Unknown] azithromycin 500 mg tablet (Zithromax) 500 mg PO DAILY 3 days #3 tabs 06/10/22 [Rx Last Taken Unknown] food supplemt, lactose-reduced 0.08 gram-1.5 kcal/mL oral liquid (Ensure Plus High Protein) 120 ml PO 4X/DAY #0 mL 06/10/22 [Rx Last Taken Unknown] menthol 0.44 %-zinc oxide 20.6 % topical ointment (Calmoseptine) 1 applic topical TID #0 grams 06/10/22 [Rx Last Taken Unknown] Allergy/AdvReac Type Severity Reaction Status Date / Time chocolate flavor AdvReac PT UNSURE Verified 06/08/22 18:45 OF REACTION Family History Mother , AGE 76 [place] Myocardial infarction Hypertension Father Heart disease Sister Breast cancer Other Diabetes Surgical History No pertinent past surgical history S/P ERCP Social History Smoking Status: Never smoker alcohol intake: never substance use type: does not use additional social history: DOES NOT USE ASPIRIN DOES NOT USE IBUPROFEN ROS ROS Narrative Pertinent positives and pertinent negatives as noted in HPI. All other systems were reviewed and are negative Physical Exam Narrative GENERAL: cooperative but frail looking HEENT: Atraumatic; poor oral dentition EYES; Anicteric, Normal Conjunctiva NECK; supple, normal thyroid, RESPIRATORY: Diminished to auscultation CARDIOVASCULAR: Regular S1 S2, GI: soft, normoactive bowel sounds, : No Renal angle tenderness; EXTREMITIES: No edema, no clubbing, MUSCULOSKELETAL: no muscle wasting NEURO: Awake; no lateralizing signs. SKIN: No Rash PSYCH; Flat affect Medical Records Data Medical Nutrition Assessment Dietitian: Malnutrition Criteria Met Start: 06/06/22 13:15 Freq: Status: Active Protocol: Document 06/09/22 13:32 RMA (Rec: 06/09/22 13:33 RMA [id number]) Nutrition Malnutrition Evidence of Malnutrition Exists Yes Malnutrition (severe): Chronic Evidenced By Suboptimal Energy Intake ( Severe),Weight Loss (Severe), Physical Changes (Severe) Intake Problem Inadequate Oral Intake Etiology related to ongoing anorexia/ refusal of meals Signs/Symptoms as evidenced by less than 50% intake of meals since admission Status Active Problem Clinical Problem Chronic Disease or Condition Related Malnutrition Etiology Severe protein-calorie malnutrition in the context of chronic disease related to difficulty swallowing and inadequate oral intake Signs/Symptoms as evidenced by need for [facility] altered diet w/ EVENT AV OPERATOR to follow, pt report of wt loss (unsure amount/timeframe), BMI <15, obvious fat/muscle loss in face, torso, upper/lower extremies and po intake meeting < 50% of estimated nutrition needs Status Active Problem Recommendation Dietitian Recommendations/Changes Will continue liberal Regular diet - consistency per EVENT AV OPERATOR. Continue magic cup or ensure pudding w/ lunch and dinner - fortified foods as able. Continue 120 ml ensure plus high protein 4x/day w/ medpass for increased nutrition if consumed. Consider TF support to meet estimated energy/protein needs in view of poor/inadequate oral intake and declining weight status. Oral intake will not be sufficient to support nutrition needs/repletion. Lab / Micro Data Result Diagrams: 06/10/22 05:03 06/10/22 05:03 Labs: Laboratory Results - last 24 hr 06/09/22 16:27: POC Glucose 93 06/09/22 21:27: POC Glucose 122 H 06/10/22 05:03: WBC 41.4 H*, RBC 3.46 L, Hgb 8.0 L, Hct 29.2 L, MCV 84.4, MCH 23.1 L, MCHC 27.4 L, RDW Std Deviation 63.1 H, RDW Coeff of Florin 21.5 H, Plt Count 64 L, Immature Gran % (Auto) 0.200, Neut % (Auto) 1.6 L, Lymph % (Auto) 97.7 H, [place] % (Auto) 0.3, Eos % (Auto) 0.1, Baso % (Auto) 0.1, Absolute Neuts (auto) 0.7 L, Absolute Lymphs (auto) 40.45 H, Nucleated RBC % 0, Diff Path Review May foll, Platelet Estimate MOD DEC, Anisocytosis 2+ 06/10/22 05:03: Sodium 144, Potassium 3.4 L, Chloride 114 H, Carbon Dioxide 24.0, Anion Gap 6, BUN 18, Creatinine 0.92, Estim Creat Clear Calc 42.45, Est GFR (MDRD) Af Amer 102, Est GFR (MDRD) Non-Af 84, BUN/Creatinine Ratio 19.5, Glucose 110 H, Calcium 7.2 L 06/10/22 06:28: POC Glucose 115 H 06/10/22 11:22: POC Glucose 156 H 06/10/22 16:06: POC Glucose 113 H Micro: Microbiology 06/10/22 11:15 Nasal Secretion SARS-CoV-2 Antigen (Rapid) - Final Assessment & Plan Assessment/Plan (1) Protein calorie malnutrition: PLAN: Protein calorie Malnutrition and severe esophageal dysphagia. He will need to undergo PEG tube placement. He was explained alternatives, risk, benefits including and not withstanding bleeding, infection, sepsis, perforation. He will have an ASA of 3. Charges/Coding Visit Charges Inpatient E&M: 26991 Init Hosp L2
[2022-06-10 19:28] LABS: International Normalized Ratio 1.2; Partial Thromboplast Time 29.8 Seconds (24.1-36.2); Prothrombin Time (Protime)PT. 15.3 SECONDS (11.7-14.9)
[2022-06-10 19:58] LABS: Hemoglobin A1c 5.5 % (3.8-5.6)
[2022-06-10] MEDS: BMX LIQUID 180 ML PO (21:47)
[2022-06-10 22:03] VITALS: BP 122/79; PULSE 86; RESP 16; TEMP 37.6; O2SAT 95
[2022-06-10 22:30] LABS: Bedside Glucose 114 mg/dL (74-106)
[2022-06-11] VITALS (15 sets, daily range): BP systolic 94–131; BP diastolic 65–87; PULSE 70–88; RESP 16–18; TEMP 36.2–37.6; O2SAT 91–95; BMI 14.6
[2022-06-11 06:20] LABS: Absolute Lymphocyte Count 41.91 X10^3/uL (0.83-4.51); Absolute Neutrophil Count 0.7 X10^3/uL (2.0-7.7); Basophil# 0.07 X10^3/uL; Basophil% 0.2 % (0-1); Eosinophil# 0.02 X10^3/uL; Hematocrit 31.1 % (40-54); Hemoglobin 8.7 g/dL (13.0-16.5); Lymphocyte # 41.91 X10^3/ul (0.83-4.51); Lymphocyte % 97.7 % (19-41); Mean Corpuscular Hgb 23.2 pg (27.0-32.0); Mean Corpuscular Volume 82.9 fL (80-94); Monocyte# 0.13 X10^3/uL; Monocyte% 0.3 % (0-10); NRBC Flagged by Analyzer 0.1 % (0-5); Neutrophil # 0.73 X10^3/uL (2.7-7.7); Neutrophil % 1.7 % (47-70); POSITIVE COUNT YES; POSITIVE DIFFERENTIAL YES; POSITIVE MORPHOLOGY YES; Platelet Count 68 K/mm3 (150-450); RBC Distribution Width CV 21.6 % (11.6-14.6); RBC Distribution Width SD 62.4 fl (35.1-43.9); Red Blood Count 3.75 M/mm3 (4.6-6.2); White Blood Count 42.9 K/mm3 (4.4-11.0)
[2022-06-11 06:26] LABS: Bedside Glucose 110 mg/dL (74-106)
[2022-06-11 06:37] LABS: Differential Indicated SCAN CRITERIA MET
[2022-06-11 07:03] LABS: Anion Gap 7 (5-15); BUN 15 mg/dL (7-18); BUN/Creat Ratio 16.3 RATIO (10-20); Calcium,Total 7.2 mg/dL (8.5-10.1); Chloride 110 mmol/L (98-107); Creatinine, Serum 0.92 mg/dL (0.70-1.30); EST Glomerular Filtration Rate 84 mL/min (>60); Est Glom Filt Rate - Afr Amer 102 mL/min (>60); Estimated Creatinine Clearance 42.45 ml/min; Glucose 110 mg/dL (74-106); Potassium 3.2 mmol/L (3.5-5.1); Sodium Level 141 mmol/L (136-145)
[2022-06-11 08:18] LABS: Anisocytosis 1+; Platelet Estimate MOD DEC (ADEQ); Red Cell Morphology N CHROM NORMAL (NORM C&C)
[2022-06-11 09:08] LABS: Pathologist Review Reviewed
[2022-06-11 09:08] LABS: Pathologist Review Reviewed
--- NOTE | 2022-06-11 09:12 | PN.HOSP_ITS ---
Subjective Subjective Follow-up dysphagia ? Patient anticipated discharge the day prior was discontinued following discovery of significant oropharyngeal dysphagia with significant risk for aspiration. Patient was kept strictly n.p.o. consult placed to GI plans for patient to undergo PEG tube placement Objective Data Objective Data Vital Signs: Vital Signs Temp Pulse Resp BP Pulse Ox O2 Del Method 98.7 F 88 16 131/76 H 92 Room Air 06/11/22 08:03 06/11/22 08:03 06/11/22 08:03 06/11/22 08:03 06/11/22 08:03 06/11/22 08:03 Oxygen Delivery Method Room Air Weight: 46.1 kg Body Mass Index (BMI) 14.6 Intake & Output: Intake and Output for Last 24 Hours 06/09/22 06/10/22 06/11/22 23:59 23:59 23:59 Intake Total 3148 / 3148 3263.00 / 3263.00 964 / 964 Output Total 400 / 950 1350 / 1650 600 / 600 Balance 2748 / 2198 1913.00 / 1613.00 364 / 364 Medical Nutrition Assessment Dietitian: Malnutrition Criteria Met Start: 06/06/22 13:15 Freq: Status: Active Protocol: Document 06/11/22 08:19 AG (Rec: 06/11/22 08:19 AG [id number]) Nutrition Malnutrition Evidence of Malnutrition Exists Yes Malnutrition (severe): Chronic Evidenced By Suboptimal Energy Intake ( Severe),Weight Loss (Severe), Physical Changes (Severe) Intake Problem Inadequate Oral Intake Etiology related to ongoing anorexia/ refusal of meals Signs/Symptoms as evidenced by less than 50% intake of meals since admission Status Active Problem Clinical Problem Chronic Disease or Condition Related Malnutrition Etiology Severe protein-calorie malnutrition in the context of chronic disease related to difficulty swallowing and inadequate oral intake Signs/Symptoms as evidenced by BMI 14.6, obvious fat/muscle loss in face, torso, upper/lower extremities per physical exam and estimated PO intake meeting < 50% of estimated nutrition needs Status Active Problem Recommendation Dietitian Recommendations/Changes NPO per OUTBOARD MOTOR TESTER; Via PEG- Jevity 1 .5 at goal rate of 50mL/hour w / 150mL H2O flush every 4 hours to provide 1800 calories , 76.5 g protein, and 1812mL fluid/day. Given malnutrition, pt w/ significant risk for refeeding. Recommend start at 20mL/hour and slowly increase by 10mL every 12 hours as tolerated until goal rate is achieved. Close monitoring of electrolytes recommended as enteral nutrition is initiated . Daily wts. Lab / Micro Data Result Diagrams: 06/11/22 05:30 06/11/22 05:30 Labs: Laboratory Results - last 24 hr 06/09/22 06:30: Diff Path Review Reviewed 06/10/22 05:03: Diff Path Review Reviewed 06/10/22 11:22: POC Glucose 156 H 06/10/22 16:06: POC Glucose 113 H 06/10/22 18:55: PT 15.3 H, INR 1.2, APTT 29.8 06/10/22 18:55: Hemoglobin A1c 5.5 06/10/22 21:42: POC Glucose 114 H 06/11/22 05:30: WBC 42.9 H*, RBC 3.75 L, Hgb 8.7 L, Hct 31.1 L, MCV 82.9, MCH 23.2 L, MCHC 28.0 L, RDW Std Deviation 62.4 H, RDW Coeff of Florin 21.6 H, Plt Count 68 L, Immature Gran % (Auto) 0.100, Neut % (Auto) 1.7 L, Lymph % (Auto) 97.7 H, [place] % (Auto) 0.3, Eos % (Auto) 0.0, Baso % (Auto) 0.2, Absolute Neuts (auto) 0.7 L, Absolute Lymphs (auto) 41.91 H, Nucleated RBC % 0.1, Differential Comment COMMENT, Diff Path Review May foll, Platelet Estimate MOD DEC, RBC Morphology N CHROM, Anisocytosis 1+ 06/11/22 05:30: Sodium 141, Potassium 3.2 L, Chloride 110 H, Carbon Dioxide 24.0, Anion Gap 7, BUN 15, Creatinine 0.92, Estim Creat Clear Calc 42.45, Est GFR (MDRD) Af Amer 102, Est GFR (MDRD) Non-Af 84, BUN/Creatinine Ratio 16.3, Glucose 110 H, Calcium 7.2 L 06/11/22 05:30: Blood Type A POSITIVE, Antibody Screen NEGATIVE 06/11/22 06:04: POC Glucose 110 H Micro: Microbiology 06/10/22 11:15 Nasal Secretion SARS-CoV-2 Antigen (Rapid) - Final 06/05/22 21:56 Blood Culture (Wb) - Left Hand Blood Culture - Preliminary No growth in 48 hours. 06/05/22 22:02 Blood Culture (Wb) - Venous Blood Culture - Preliminary No growth in 48 hours. 06/05/22 19:15 Urine, Clean Catch Legionella Antigen - Final 06/05/22 19:15 Urine, Clean Catch Streptococcus pneumoniae Antigen (M - F inal Physical Exam Narrative GENERAL: cooperative but frail looking HEENT: Atraumatic; poor oral dentition EYES; Anicteric, Normal Conjunctiva NECK; supple, normal thyroid, RESPIRATORY: Diminished to auscultation CARDIOVASCULAR: Regular S1 S2, GI: soft, normoactive bowel sounds, : No Renal angle tenderness; EXTREMITIES: No edema, no clubbing, MUSCULOSKELETAL: no muscle wasting NEURO: Awake; no lateralizing signs. SKIN: No Rash PSYCH; Flat affect Assessment & Plan Assessment/Plan (1) Hypernatremia: (2) CUAUHTEMOC (acute kidney injury): PLAN: Plan Patient is a 81-year-old gentleman with history of chronic lymphocytic leukemia presented with progressive generalized weakness. Imaging studies obtained on admission demonstrated diffuse multifocal infiltrate bilaterally diagnosis of bilateral pneumonia made admitted to regular nursing floor for further management 1. Bilateral pneumonia ? Patient managed with broad-spectrum antibiotic therapy with Unasyn as well as azithromycin. Has also been placed on oxygen titrated to keep saturation greater than 90. There was a concern for possible aspiration and speech therapy consulted for speech eval 06/09/2022; patient seen remains on broad-spectrum antibiotic therapy 06/10/2022; remains on supplemental oxygen 2. Chronic lymphocytic leukemia ? May partly explain for patient markedly elevated WBC count. Daily CBC ordered for monitoring 3. Severe Hypernatremia ? Blood levels peaked at 163 has been started on D5W with every 4 hour monitoring of electrolytes ordered. So placed to nephrology Case discussed with Dr. Vu ? 06/09/2022; patient sodium levels down to 148. Still not optimal we will continue with current treatment and BMP ordered for a.m. ? 06/10/2022; sodium levels down to 144 4. Physical deconditioning - Requested for PT OT eval and socially responsible investment adviser to assist with discharge planning 5. Hypokalemia -Corrected per protocol, repeat potassium ordered for a.m. ? 06/10/2022 potassium level still low at 3.4 additional potassium given 7. Severe malnutrition r/t? to pt c/o difficulty swallowing and inability to consume adequate nutrition to meet est nutritional needs as evidenced by need for [facility] altered diet w/ OUTBOARD MOTOR TESTER to follow, pt report of wt loss (unsure amount/timeframe), BMI <15, obvious fat/muscle loss in face, torso, upper/lower extremies and po intake meeting < 75% of estimated nutrition needs. Patient seen by dietitian recommendations reviewed. 8. Thrombocytopenia ? May be related to patient underlying CLL patient is on Lovenox discontinued daily monitoring with CBC ordered 9. DVT prophylaxis ? Patient was on Lovenox discontinued in view of of his thrombocytopenia 10. Dysphagia ? 06/11/2022; patient anticipated discharge the day prior was discontinued following discovery of significant oropharyngeal dysphagia with significant risk for aspiration. Patient was kept strictly n.p.o. consult placed to GI plans for patient to undergo PEG tube placement Time Spent on patient; 36 minutes Charges/Coding Visit Charges Inpatient E&M: 98158 Subs Hosp L2
--- NOTE | 2022-06-11 09:13 | PN.RENAL_ITS ---
Documented by User: MAXINE Merino 06/12/22 09:21 Subjective Subjective Following for CUAUHTEMOC and hypernatremia Patient resting in bed. No complaints. No overnight events. Objective Data Objective Data Vital Signs: Vital Signs Temp Pulse Resp BP Pulse Ox O2 Del Method O2 Flow Rate 99.3 F H 89 16 118/75 93 Room Air 3 06/12/22 04:00 06/12/22 04:00 06/12/22 04:00 06/12/22 04:00 06/12/22 04:00 06/12/22 04:00 06/11/22 15:42 Oxygen Flow Rate (L/min) 3 Oxygen Delivery Method Room Air Weight: 46.1 kg Body Mass Index (BMI) 14.6 Intake & Output: Intake and Output for Last 24 Hours 06/10/22 06/11/22 06/12/22 23:59 23:59 23:59 Intake Total 3263.00 / 3263.00 2266.33 / 2266.33 775.67 / 775.67 Output Total 1350 / 1650 700 / 1000 500 / 500 Balance 1913.00 / 1613.00 1566.33 / 1266.33 275.67 / 275.67 Medical Nutrition Assessment Dietitian: Malnutrition Criteria Met Start: 06/06/22 13:15 Freq: Status: Active Protocol: Document 06/11/22 08:19 (Rec: 06/11/22 08:19 [id number]) Nutrition Malnutrition Evidence of Malnutrition Exists Yes Malnutrition (severe): Chronic Evidenced By Suboptimal Energy Intake ( Severe),Weight Loss (Severe), Physical Changes (Severe) Intake Problem Inadequate Oral Intake Etiology related to ongoing anorexia/ refusal of meals Signs/Symptoms as evidenced by less than 50% intake of meals since admission Status Active Problem Clinical Problem Chronic Disease or Condition Related Malnutrition Etiology Severe protein-calorie malnutrition in the context of chronic disease related to difficulty swallowing and inadequate oral intake Signs/Symptoms as evidenced by BMI 14.6, obvious fat/muscle loss in face, torso, upper/lower extremities per physical exam and estimated PO intake meeting < 50% of estimated nutrition needs Status Active Problem Recommendation Dietitian Recommendations/Changes NPO per BONDED STRUCTURES REPAIRER; Via PEG- Jevity 1 .5 at goal rate of 50mL/hour w / 150mL H2O flush every 4 hours to provide 1800 calories , 76.5 g protein, and 1812mL fluid/day. Given malnutrition, pt w/ significant risk for refeeding. Recommend start at 20mL/hour and slowly increase by 10mL every 12 hours as tolerated until goal rate is achieved. Close monitoring of electrolytes recommended as enteral nutrition is initiated . Daily wts. Lab / Micro Data Result Diagrams: 06/11/22 05:30 06/11/22 05:30 Labs: Laboratory Results - last 24 hr 06/11/22 15:49: POC Glucose 107 H 06/11/22 22:00: POC Glucose 84 06/12/22 06:34: POC Glucose 145 H Micro: Microbiology 06/05/22 21:56 Blood Culture (Wb) - Left Hand Blood Culture - Final No growth in 5 days. 06/05/22 22:02 Blood Culture (Wb) - Venous Blood Culture - Final No growth in 5 days. 06/10/22 11:15 Nasal Secretion SARS-CoV-2 Antigen (Rapid) - Final 06/05/22 19:15 Urine, Clean Catch Legionella Antigen - Final 06/05/22 19:15 Urine, Clean Catch Streptococcus pneumoniae Antigen (M - Final Physical Exam Narrative General: Cachectic malnourished appearing man. Alert and oriented x3. No apparent distress. Heart: Normal S1, S2. No rubs, murmurs, or gallops. Lungs: Clear to auscultation bilaterally. Abdomen: Normal bowel sounds. PEG intact Extremities: No edema. Assessment & Plan Assessment/Plan (1) Hypernatremia: (2) CUAUHTEMOC (acute kidney injury): PLAN: Plan - Hypernatremia is due to dehydration. Sodium peaked 164. Sodium is now 141. Urinalysis shows concentrated urine on presentation. Low suspicion for diabetes insipidus. The patient has not significantly polyuric He is on D5 at 100 mL/h. Patient is also receiving tube feedings with flushes. Can stop IV fluids if okay with primary team. - Acute kidney injury. Resolved Serum creatinine peaked at 1.57 mg/dL on presentation on 06/05/2022. Serum creatinine is down to 0.92 mg/dL today. However, I suspect that serum creatinine is overestimating true GFR given very low muscle mass on exam. We can check cystatin C as outpatient to more accurately determine renal function. This would not change treatment at the moment. - Pneumonia. The patient is being treated with azithromycin and Unasyn. -Discharge planning underway. OK for discharge per renal when cleared by primary team. Discussed with Dr. Mckeon. Documented by User: Dr. Vanessa Reyes MD 06/12/22 16:24 Subjective Subjective Following for CUAUHTEMOC and hypernatremia No complaints. He denies chest pain or shortness of breath. There is no nausea or vomiting. Objective Data Lab / Micro Data Result Diagrams: 06/11/22 05:30 06/11/22 05:30 Assessment & Plan Assessment/Plan (1) Hypernatremia: (2) CUAUHTEMOC (acute kidney injury): PLAN: Plan Impression/Plan: The patient is a 81-year-old man with history of chronic lymphocytic leukemia, thrombocytopenia, hypertension, and basal so cancer of the skin who presented to the hospital on 06/05/2022 with 2 weeks history of weakness, anorexia and dysphagia.? The patient was admitted for treatment of bilateral pneumonia and dehydration.? Nephrology is following for hypernatremia and CUAUHTEMOC. Hypernatremia. Hypernatremia is due to dehydration. Urinalysis shows concentrated urine on presentation. Low suspicion for diabetes insipidus.? The patient has not significantly polyuric either. Serum sodium is also coming down with 2.4 L of D5W per day in addition to oral water intake. Serum sodium is 141 mmol/L today. The patient is scheduled to be discharged to SNF today.? Continue D5W until discharged to SNF.? Recheck serum sodium again as outpatient.? Encourage patient to drink when he is thirsty. Acute kidney injury. Resolving. Serum creatinine peaked at 1.57 mg/dL on presentation on 06/05/2022. Serum creatinine is down to 0.92 mg/dL today.? However, I suspect that serum creatinine is overestimating true GFR given very low muscle mass on exam. We can check cystatin C as outpatient to more accurately determine renal function.? This would not change treatment at the moment. Pneumonia. The patient is being treated with azithromycin and Unasyn as per hospital medicine service.
--- NOTE | 2022-06-11 10:15 | NURSING ---
pt to endo
--- NOTE | 2022-06-11 11:30 | IMM_PTH ---
PATIENT: NYA ALATORRE LOC: [facility] U#:[id number] AGE/SX: 81/M ROOM: NE314 RE06/05/[address]: Dr. Camacho Mckeon MD : [id number] BED: 1 DIS: 06/12/2022 SPEC #: [id number] RECD: 06/11/22 14:16 STATUS: SOUCorrie REQ #: [id number] COLBY: 06/11/22 11:[address]: Ra Jenniferhsaan DEPT: IMMUNOHISTOCHEMISTRY RECD BY: Bernadine Trivedi ENTERED: 06/11/22 14:17 SP TYPE: IMMUNO OTHR DR: MD Dr. Braden Cortez MD Dr. Liza D Talampas, MD Dr. Nicholas F Kotsonis, MD Dr. Natthavat Tanphaichitr, MD Tissues: Stomach, NOS Procedures: H Pylori (initial) CD138 (add) KAPPA (add) LAMBDA (add) PHYSICIAN & [address] [address] SPECIMEN INFORMATION: Tissue Source: Gastric ulcer of cardia biopsy Clinical Info: Protein calorie malnutrition Specimen Number: [id number] CPT code: 49175, 39532 x3 METHODOLOGY: Deparaffinized sections of prefer/formalin-fixed tissue or PAP/DQ stained slides are incubated with monoclonal/polyclonal antibodies/oligonucleotide probes. Localization is made via biotin free immunoperoxidase method. Appropriate controls are performed and reacted as expected. Results on target cell population are indicated in the following table: RESULTS: ANTIBODY / CLONE RESULT H Pylori (polyclonal) negative [place] (polyclonal) positive Lambda (polyclonal) positive CD138 (B-A38) positive These tests were developed and their performance characteristics determined by [facility]. They may not have been cleared or approved by the U.[place]. Food and Drug Administration. The FDA has determined that such clearance or approval is not necessary. The above immunohistochemical/dualISH markers are ordered and reviewed by the Pathologist. INTERPRETATION: Gastric ulcer of cardia, biopsy: Negative for Helicobacter pylori organisms. Plasma cells are polytypic in nature. SJ:jh 06/12/2022
--- NOTE | 2022-06-11 11:30 | EGD_PTH ---
PATIENT: NYA ALATORRE LOC: [facility]3 U#:[id number] AGE/SX: 81/M [place]OM[place] [facility] [place] RE06/05/[address]: Dr. Camacho Mckeon MD : 1940 BED: 1 DIS: 06/12/2022 SPEC #: [id number] RECD: 06/11/22 13:22 STATUS: JUAN ALBERTO REQ #: [id number] COLBY: 06/11/22 11:[address]: Marco A Rodriguez DEPT: SURGICAL PATHOLOGY RECD BY: Lucy Sutherland ENTERED: 06/11/22 13:42 SP TYPE: EGD BIOPSY OTHR DR: MD Dr. Braden Cortez MD Dr. Liza D Talampas, MD Dr. Nicholas F Kotsonis, MD Dr. Natthavat Tanphaichitr, MD Tissues: Gastric mucous membrane Procedures: Surgery Specimen Level IV Comments: @ Ordering doctor for SUIV edited from to @ by ELIZABETH at 06/11/22 1539 @ Submitting doctor edited from to @ by RGOOD at 06/11/22 1539 HEADER OPERATION: EGD (MAC), PEG tube, biopsy PRE-OP DIAGNOSIS: Protein calorie malnutrition TISSUE SUBMITTED: Gastric ulcer of cardia biopsy MICROSCOPIC DIAGNOSIS Gastric ulcer of cardia, biopsy: Fragments of gastric mucosa with moderate to marked chronic inflammation. See comment. SANDRO:jh 06/12/2022 COMMENT Marked plasma cell infiltrates are noted. The plasma cells are polytypic in nature. The results of immunohistochemistry for Helicobacter pylori will be reported separately ([id number]). Immunohistochemistry ([id number]) supports the above diagnosis. MICROSCOPIC DESCRIPTION Slides are reviewed. GROSS DESCRIPTION Received in fixative is one container labeled with the patient's name and designated gastric ulcer. The specimen consists of multiple irregular fragments of light batista soft tissue that in aggregate measure 1.5 x 0.3 x 0.1 cm. The specimen is totally submitted in one cassette. / AM:jh 06/11/2022 TC:3 CPT: 73248
--- NOTE | 2022-06-11 11:57 | CASEMGMT ---
Social work SW informed Bradley Swain that pt is getting a PEG placed today around 10:15. KAT sent updated regarding GI consult and swallow Study. Bradley Swain responded and shared they would prefer if pt is kept at [facility] for 24 hours following PEG placement to monitor and ensure the PEG is working correctly. KAT informed MD Mckeon of Bradley Swain's request for this. PLAN: Bradley Swain, when medically ready KRYSTEN Laws
--- NOTE | 2022-06-11 12:42 | OP.CCLET_ITS ---
06/11/2022 Andra Dasilva [address] [place] [address] Re : Upper GI endoscopy procedure for Eliecer Hernandez Dear Dr. Dasilva This procedure was performed on May. My impressions and recommendations are as follows: Impressions : - Normal esophagus. - Non-bleeding gastric ulcers with no stigmata of bleeding. Biopsied. - No gross lesions in the first portion of the duodenum. - An endoscopically removable PEG placement was successfully completed. Recommendations : - Discharge patient to home. - NPO. - Continue present medications. - Await pathology results. - Repeat upper endoscopy in 2 months for surveillance based on pathology results. My findings are described in the full procedure note, which is enclosed. If I can be of further assistance, please feel free to contact me at . Sincerely, Marco A Rodriguez, 06/11/2022 12:42:01 PM This report has been signed electronically.
--- NOTE | 2022-06-11 12:42 | OP.EGD_ITS ---
Patient Name: Eliecer Hernandez Procedure Date: 06/11/2022 12:03 PM Date of : 1940 Age: 81 Procedure: Upper GI endoscopy Indications: Dysphagia, Failure to respond to medical treatment Providers: Marco A Rodriguez DO Medicines: Monitored Anesthesia Care Patient Profile: This is a 81 year old male. Refer to note in patient chart for documentation of history and physical. Patient has symptoms of acute dysphagia. Complications: No immediate complications. Procedure: Pre-Anesthesia Assessment: - Prior to the procedure, a History and Physical was performed, and patient medications and allergies were reviewed. The patient is competent. The risks and benefits of the procedure and the sedation options and risks were discussed with the patient. All questions were answered and informed consent was obtained. Patient identification and proposed procedure were verified by the physician in the pre-procedure area. Mental Status Examination: alert and oriented. Airway Examination: normal oropharyngeal airway and neck mobility. Respiratory Examination: clear to auscultation. CV Examination: normal. Prophylactic Antibiotics: The patient does not require prophylactic antibiotics. Prior Anticoagulants: The patient has taken no previous anticoagulant or antiplatelet agents. ASA Grade Assessment: III - A patient with severe systemic disease. After reviewing the risks and benefits, the patient was deemed in satisfactory condition to undergo the procedure. The anesthesia plan was to use monitored anesthesia care (MAC). Immediately prior to administration of medications, the patient was re-assessed for adequacy to receive sedatives. The heart rate, respiratory rate, oxygen saturations, blood pressure, adequacy of pulmonary ventilation, and response to care were monitored throughout the procedure. The physical status of the patient was re-assessed after the procedure. After obtaining informed consent, the endoscope was passed under direct vision. Throughout the procedure, the patient's blood pressure, pulse, and oxygen saturations were monitored continuously. The gastroscope was introduced through the mouth, and advanced to the second part of duodenum. The upper GI endoscopy was accomplished without difficulty. The patient tolerated the procedure well. Scope In: 12:16:51 PM Scope Out: 12:35:57 PM Total Procedure Duration Time 0 hours 19 minutes 6 seconds Findings: The examined esophagus was normal. Three non-bleeding cratered gastric ulcers with no stigmata of bleeding were found in the cardia and in the gastric body. The largest lesion was 6 mm in largest dimension. Biopsies were taken with a cold forceps for histology. Verification of patient identification for the specimen was done. Estimated blood loss was minimal. The patient was placed in the supine position for PEG placement. The stomach was insufflated to appose gastric and abdominal corado. A site was located in the cardia with excellent transillumination for placement. The abdominal wall was marked and prepped in a sterile manner. The area was anesthetized with 1 mL of 0.5% lidocaine. The trocar needle was introduced through the abdominal wall and into the stomach under direct endoscopic view. A snare was introduced through the endoscope and opened in the gastric lumen. The guide wire was passed through the trocar and into the open snare. The snare was closed around the guide wire. The endoscope and snare were removed, pulling the wire out through the mouth. A skin incision was made at the site of needle insertion. The endoscopically removable 20 Fr Bard gastrostomy tube was lubricated. The G-tube was tied to the guide wire and pulled through the mouth and into the stomach. The trocar needle was removed, and the gastrostomy tube was pulled out from the stomach through the skin. The external bumper was attached to the gastrostomy tube, and the tube was cut to remove the guide wire. The final position of the gastrostomy tube was confirmed by relook endoscopy, and skin marking noted to be 4 cm at the external bumper. The final tension and compression of the abdominal wall by the PEG tube and external bumper were checked. The feeding tube was capped, and the tube site cleaned and dressed. No gross lesions were noted in the first portion of the duodenum. Impression: - Normal esophagus. - Non-bleeding gastric ulcers with no stigmata of bleeding. Biopsied. - No gross lesions in the first portion of the duodenum. - An endoscopically removable PEG placement was successfully completed. Recommendation: - Discharge patient to home. - NPO. - Continue present medications. - Await pathology results. - Repeat upper endoscopy in 2 months for surveillance based on pathology results. Procedure Code(s): --- Professional --- 24150, Esophagogastroduodenoscopy, flexible, transoral; with directed placement of percutaneous gastrostomy tube 94287, Esophagogastroduodenoscopy, flexible, transoral; with biopsy, single or multiple CPT copyright 2017 [employer] [place] [employer]. All rights reserved. The codes documented in this report are preliminary and upon certified coder review may be revised to meet current compliance requirements. Marco A Rodriguez DO 06/11/2022 12:42:01 PM This report has been signed electronically. Number of Addenda: 0 Note Initiated On: 06/11/2022 12:03 PM
[2022-06-11] MEDS: Potassium Chloride 10mEq/100mL 10 MEQ/100 ML IV.SOLN. 100 MEQ IV BOLUS ×4 (14:47→17:51)
[2022-06-11 16:10] LABS: Bedside Glucose 107 mg/dL (74-106)
[2022-06-11] MEDS: Jevity 1.5 1,000 ML 20 ML GT (21:51)
[2022-06-12 00:06] LABS: Bedside Glucose 84 mg/dL (74-106)
[2022-06-12 04:00] VITALS: BP 118/75; PULSE 89; RESP 16; TEMP 37.4; O2SAT 93
--- NOTE | 2022-06-12 07:00 | PCM.PROGNOTE ---
Subjective Subjective Patient underwent successful PEG tube placement. He is not have any abdominal pain. He is tolerating tube feedings. Objective Data Objective Data Vital Signs: Vital Signs Temp Pulse Resp BP Pulse Ox O2 Del Method O2 Flow Rate 99.4 F H 83 16 124/81 H 92 Room Air 3 06/12/22 12:25 06/12/22 12:25 06/12/22 12:25 06/12/22 12:25 06/12/22 12:25 06/12/22 12:25 06/11/22 15:42 Oxygen Flow Rate (L/min) 3 Oxygen Delivery Method Room Air Weight: 101 lb 10.13 oz Body Mass Index (BMI) 14.6 Intake & Output: Intake and Output for Last 24 Hours 06/10/22 06/11/22 06/12/22 23:59 23:59 23:59 Intake Total 3263.00 / 3263.00 2266.33 / 2266.33 2258.67 / 2258.67 Output Total 1350 / 1650 700 / 1000 650 / 650 Balance 1913.00 / 1613.00 1566.33 / 1266.33 1608.67 / 1608.67 Lab / Micro Data Result Diagrams: 06/11/22 05:30 06/11/22 05:30 Labs: Laboratory Results - last 24 hr 06/11/22 15:49: POC Glucose 107 H 06/11/22 22:00: POC Glucose 84 06/12/22 06:34: POC Glucose 145 H 06/12/22 11:22: POC Glucose 156 H Micro: Microbiology 06/12/22 10:16 Nasal Secretion SARS-CoV-2 Antigen (Rapid) - Final 06/05/22 21:56 Blood Culture (Wb) - Left Hand Blood Culture - Final No growth in 5 days. 06/05/22 22:02 Blood Culture (Wb) - Venous Blood Culture - Final No growth in 5 days. 06/10/22 11:15 Nasal Secretion SARS-CoV-2 Antigen (Rapid) - Final 06/05/22 19:15 Urine, Clean Catch Legionella Antigen - Final 06/05/22 19:15 Urine, Clean Catch Streptococcus pneumoniae Antigen (M - Final Physical Exam Narrative GENERAL: cooperative but frail looking HEENT: Atraumatic; poor oral dentition EYES; Anicteric, Normal Conjunctiva NECK; supple, normal thyroid, RESPIRATORY: Diminished to auscultation CARDIOVASCULAR: Regular S1 S2, GI: soft, normoactive bowel sounds, : No Renal angle tenderness; EXTREMITIES: No edema, no clubbing, MUSCULOSKELETAL: no muscle wasting NEURO: Awake; no lateralizing signs. SKIN: No Rash PSYCH; Flat affect Assessment & Plan Assessment/Plan (1) Protein calorie malnutrition: PLAN: Continue tube feedings as previously ordered. Patient is not having any problems with his feedings and is not having any residuals. He will need 2050 cc every 6 hour flushes along with previous protein supplement 4 times a day. Charges/Coding Visit Charges Inpatient E&M: 61258 Subs Hosp L2
[2022-06-12 07:05] LABS: Bedside Glucose 145 mg/dL (74-106)
--- NOTE | 2022-06-12 08:54 | PN.HOSP_ITS ---
Subjective Subjective Follow-up dysphagia ? Patient underwent PEG tube placement on 06/11/2022. Tube feed initiated. Patient also for tolerated tube feed. Plans for patient to be assessed for possible discharge to a assisted facility Objective Data Objective Data Vital Signs: Vital Signs Temp Pulse Resp BP Pulse Ox O2 Del Method O2 Flow Rate 99.3 F H 89 16 118/75 93 Room Air 3 06/12/22 04:00 06/12/22 04:00 06/12/22 04:00 06/12/22 04:00 06/12/22 04:00 06/12/22 04:00 06/11/22 15:42 Oxygen Flow Rate (L/min) 3 Oxygen Delivery Method Room Air Weight: 46.1 kg Body Mass Index (BMI) 14.6 Intake & Output: Intake and Output for Last 24 Hours 06/10/22 06/11/22 06/12/22 23:59 23:59 23:59 Intake Total 3263.00 / 3263.00 2266.33 / 2266.33 775.67 / 775.67 Output Total 1350 / 1650 700 / 1000 500 / 500 Balance 1913.00 / 1613.00 1566.33 / 1266.33 275.67 / 275.67 Medical Nutrition Assessment Dietitian: Malnutrition Criteria Met Start: 06/06/22 13:15 Freq: Status: Active Protocol: Document 06/11/22 08:19 (Rec: 06/11/22 08:19 [id number]) Nutrition Malnutrition Evidence of Malnutrition Exists Yes Malnutrition (severe): Chronic Evidenced By Suboptimal Energy Intake ( Severe),Weight Loss (Severe), Physical Changes (Severe) Intake Problem Inadequate Oral Intake Etiology related to ongoing anorexia/ refusal of meals Signs/Symptoms as evidenced by less than 50% intake of meals since admission Status Active Problem Clinical Problem Chronic Disease or Condition Related Malnutrition Etiology Severe protein-calorie malnutrition in the context of chronic disease related to difficulty swallowing and inadequate oral intake Signs/Symptoms as evidenced by BMI 14.6, obvious fat/muscle loss in face, torso, upper/lower extremities per physical exam and estimated PO intake meeting < 50% of estimated nutrition needs Status Active Problem Recommendation Dietitian Recommendations/Changes NPO per SPACE SCHEDULER; Via PEG- Jevity 1 .5 at goal rate of 50mL/hour w / 150mL H2O flush every 4 hours to provide 1800 calories , 76.5 g protein, and 1812mL fluid/day. Given malnutrition, pt w/ significant risk for refeeding. Recommend start at 20mL/hour and slowly increase by 10mL every 12 hours as tolerated until goal rate is achieved. Close monitoring of electrolytes recommended as enteral nutrition is initiated . Daily wts. Lab / Micro Data Result Diagrams: 06/11/22 05:30 06/11/22 05:30 Labs: Laboratory Results - last 24 hr 06/09/22 06:30: Diff Path Review Reviewed 06/10/22 05:03: Diff Path Review Reviewed 06/11/22 15:49: POC Glucose 107 H 06/11/22 22:00: POC Glucose 84 06/12/22 06:34: POC Glucose 145 H Micro: Microbiology 06/05/22 21:56 Blood Culture (Wb) - Left Hand Blood Culture - Final No growth in 5 days. 06/05/22 22:02 Blood Culture (Wb) - Venous Blood Culture - Final No growth in 5 days. 06/10/22 11:15 Nasal Secretion SARS-CoV-2 Antigen (Rapid) - Final 06/05/22 19:15 Urine, Clean Catch Legionella Antigen - Final 06/05/22 19:15 Urine, Clean Catch Streptococcus pneumoniae Antigen (M - Final Physical Exam Narrative GENERAL: cooperative but frail looking HEENT: Atraumatic; poor oral dentition EYES; Anicteric, Normal Conjunctiva NECK; supple, normal thyroid, RESPIRATORY: Diminished to auscultation CARDIOVASCULAR: Regular S1 S2, GI: soft, normoactive bowel sounds, : No Renal angle tenderness; EXTREMITIES: No edema, no clubbing, MUSCULOSKELETAL: no muscle wasting NEURO: Awake; no lateralizing signs. SKIN: No Rash PSYCH; Flat affect Assessment & Plan Assessment/Plan (1) Hypernatremia: (2) CUAUHTEMOC (acute kidney injury): PLAN: Plan Patient is a 81-year-old gentleman with history of chronic lymphocytic leukemia presented with progressive generalized weakness. Imaging studies obtained on admission demonstrated diffuse multifocal infiltrate bilaterally diagnosis of bilateral pneumonia made admitted to regular nursing floor for further management 1. Bilateral pneumonia ? Patient managed with broad-spectrum antibiotic therapy with Unasyn as well as azithromycin. Has also been placed on oxygen titrated to keep saturation greater than 90. There was a concern for possible aspiration and speech therapy consulted for speech eval 06/09/2022; patient seen remains on broad-spectrum antibiotic therapy 06/10/2022; remains on supplemental oxygen 2. Chronic lymphocytic leukemia ? May partly explain for patient markedly elevated WBC count. Daily CBC ordered for monitoring 3. Severe Hypernatremia ? Blood levels peaked at 163 has been started on D5W with every 4 hour monitoring of electrolytes ordered. So placed to nephrology Case discussed with Dr. Vu ? 06/09/2022; patient sodium levels down to 148. Still not optimal we will continue with current treatment and BMP ordered for a.m. ? 06/10/2022; sodium levels down to 144 4. Physical deconditioning - Requested for PT OT eval and social economist to assist with discharge planning 5. Hypokalemia -Corrected per protocol, repeat potassium ordered for a.m. ? 06/10/2022 potassium level still low at 3.4 additional potassium given 7. Severe malnutrition r/t? to pt c/o difficulty swallowing and inability to consume adequate nutrition to meet est nutritional needs as [facility] SPACE SCHEDULER to follow, pt report of wt loss (unsure amount/timeframe), BMI <15, obvious fat/muscle loss in face, torso, upper/lower extremies and po intake meeting < 75% of estimated nutrition needs. Patient seen by dietitian recommendations reviewed. 8. Thrombocytopenia ? May be related to patient underlying CLL patient is on Lovenox discontinued daily monitoring with CBC ordered 9. DVT prophylaxis ? Patient was on Lovenox discontinued in view of of his thrombocytopenia 10. Dysphagia ? 06/11/2022; patient anticipated discharge the day prior was discontinued following discovery of significant oropharyngeal dysphagia with significant risk for aspiration. Patient was kept strictly n.p.o. consult placed to GI plans for patient to undergo PEG tube placement ? 06/12/2022; patient underwent PEG tube placement on 06/11/2022. Tube feed initiated. Patient also for tolerated tube feed. Plans for patient to be assessed for possible discharge to a assisted facility Time Spent on patient; 36 minutes Charges/Coding Visit Charges Inpatient E&M: 95797 Subs Hosp L2
--- NOTE | 2022-06-12 09:42 | TREXTCAR_ITS ---
Diet Diet Order/Speech Therapy: NPO per FRENCH TRANSLATOR; Via PEG- Jevity 1.5 at goal rate of 50mL/hour w/ 150mL H2O flush every 4 hours to provide 1800 calories, 76.5 g protein, and 1812mL fluid/day. Given malnutrition, pt w/ significant risk for refeeding. Recommend start at 20mL/hour and slowly increase by 10mL every 12 hours as tolerated until goal rate is achieved. Close monitoring of electrolytes recommended as enteral nutrition is initiated. Daily wts. Routine Orders/Code Status Code Status: DNRCC-A Wound(s) right outer knee: Wound Type: Skin Tear ABD: Wound Type: Puncture Therapies Physical Therapy: Eval and Treat Occupational Therapy: Eval and Treat Problem/Diagnosis (1) Hypernatremia: Status: Acute Code(s): E87.0 - Hyperosmolality and hypernatremia (2) CUAUHTEMOC (acute kidney injury): Status: Acute Code(s): N17.9 - Acute kidney failure, unspecified Plan Patient is a 81-year-old gentleman with history of chronic lymphocytic leukemia presented with progressive generalized weakness. Imaging studies obtained on admission demonstrated diffuse multifocal infiltrate bilaterally diagnosis of bilateral pneumonia made admitted to regular nursing floor for further management 1. Bilateral pneumonia ? Patient managed with broad-spectrum antibiotic therapy with Unasyn as well as azithromycin. Has also been placed on oxygen titrated to keep saturation greater than 90. There was a concern for possible aspiration and speech therapy consulted for speech eval 06/09/2022; patient seen remains on broad-spectrum antibiotic therapy 06/10/2022; remains on supplemental oxygen 2. Chronic lymphocytic leukemia ? May partly explain for patient markedly elevated WBC count. Daily CBC ordered for monitoring 3. Severe Hypernatremia ? Blood levels peaked at 163 has been started on D5W with every 4 hour monitoring of electrolytes ordered. So placed to nephrology Case discussed with Dr. Vu ? 06/09/2022; patient sodium levels down to 148. Still not optimal we will continue with current treatment and BMP ordered for a.m. ? 06/10/2022; sodium levels down to 144 4. Physical deconditioning - Requested for PT OT eval and social science manager to assist with discharge planning 5. Hypokalemia -Corrected per protocol, repeat potassium ordered for a.m. ? 06/10/2022 potassium level still low at 3.4 additional potassium given 7. Severe malnutrition r/t? to pt c/o difficulty swallowing and inability to consume adequate nutrition to meet est nutritional needs as evidenced by need for [facility] altered diet w/ FRENCH TRANSLATOR to follow, pt report of wt loss (unsure amount/timeframe), BMI <15, obvious fat/muscle loss in face, torso, upper/lower extremies and po intake meeting < 75% of estimated nutrition needs. Patient seen by dietitian recommendations reviewed. 8. Thrombocytopenia ? May be related to patient underlying CLL patient is on Lovenox discontinued daily monitoring with CBC ordered 9. DVT prophylaxis ? Patient was on Lovenox discontinued in view of of his thrombocytopenia 10. Dysphagia ? 06/11/2022; patient anticipated discharge the day prior was discontinued following discovery of significant oropharyngeal dysphagia with significant risk for aspiration. Patient was kept strictly n.p.o. consult placed to GI plans for patient to undergo PEG tube placement ? 06/12/2022; patient underwent PEG tube placement on 06/11/2022. Tube feed initiated. Patient also for tolerated tube feed. Plans for patient to be assessed for possible discharge to a [facility] facility Time Spent on patient; 36 minutes Allergies/Procedures Done in Hospital Allergies chocolate flavor Adverse Reaction (Verified 06/08/22 18:45) PT UNSURE OF REACTION Type of Care/Length of Stay Estimated LOS: Convalescent Care Less Than 30 days Type of Care Needed: Skilled Rehab Potential: Good Prognosis: Good Additional Orders/Day of Discharge Day of Discharge: 06/10/22 Dietary and Speech Recommendations Dietitian Recommendations/Changes: NPO per FRENCH TRANSLATOR; Via PEG- Jevity 1.5 at goal rate of 50mL/hour w/ 150mL H2O flush every 4 hours to provide 1800 calories, 76.5 g protein, and 1812mL fluid/day. Given malnutrition, pt w/ significant risk for refeeding. Recommend start at 20mL/hour and slowly increase by 10mL every 12 hours as tolerated until goal rate is achieved. Close monitoring of electrolytes recommended as enteral nutrition is initiated. Daily wts. Discharge Plan Admission Admit Date/Time: 06/05/22 21:09 Attending Provider: Camacho Mckeon Primary Care Provider: Andra Dasilva Consulting Providers: Braden Ridley ; Dax Colbert ; Vanessa Reyes Discharge Orders/Prescriptions Prescriptions: New albuterol sulfate 2.5 mg /3 mL (0.083 %) Solution For Nebulization 2.5 mg inhalation Q2H PRN PRN (Reason: Shortness of Breath/Wheezing) Qty: 0 0RF menthol-zinc oxide [Calmoseptine] 0.44-20.6 % Ointment 1 applic topical TID Qty: 0 0RF Protocol: *Topical Application Instructions APPLICATION INSTRUCTIONS: carroll rectal area Ensure Plus High Protein 0.08 gram-1.5 kcal/mL Liquid 120 ml PO 4X/DAY Qty: 0 0RF amoxicillin-pot clavulanate [Augmentin] 500-125 mg tablet 1 tab PO Q12H Qty: 14 0RF azithromycin [Zithromax] 500 mg tablet 500 mg PO DAILY 3 Days Qty: 3 0RF Continued lidocaine HCl [Lidocaine Viscous] 2 % solution 1 applic PO 4X/DAY PRN (Reason: SORE MOUTH) Rx Instructions: Mix half teaspoon with 1 teaspoon maalox and coat mouth 4 times daily as needed for sore mouth. cholecalciferol (vitamin D3) [Vitamin D3] 25 mcg (1,000 unit) Tablet 25 mcg PO DAILY Referrals / Follow Up: Andra Dasilva MD [Primary Care Provider] - Within 2 Weeks Disposition Disposition (needs filled in before D/C Order can be placed): Senior Living Facility
--- NOTE | 2022-06-12 09:45 | PCM.DC.SUM ---
Providers Date of Admission: 06/05/22 Date of Discharge: 06/12/22 Primary Care Physician: Dr. Andra Dasilva MD Consultations 06/08/22 10:45 Consult: Nephrology Routine Consulting Provider: Vanessa Reyes Reason for Consult: hypernatremia EMERGENT Consult: No Notified: Yes Date Notified: 06/08/22 Time Notified: 10:45 Method of Notification: Verbal 06/10/22 13:34 Consult: Gastroenterology Routine Consulting Provider: [facility] Reason for Consult: peg tube placement EMERGENT Consult: No Notified: Yes Date Notified: 06/10/22 Time Notified: 13:34 Method of Notification: Text Reason For Visit: BILATERAL PNEUMONIA Diagnosis Discharge Diagnosis (1) Hypernatremia: Status: Acute Code(s): E87.0 - Hyperosmolality and hypernatremia (2) CUAUHTEMOC (acute kidney injury): Status: Acute Code(s): N17.9 - Acute kidney failure, unspecified Plan Patient is a 81-year-old gentleman with history of chronic lymphocytic leukemia presented with progressive generalized weakness. Imaging studies obtained on admission demonstrated diffuse multifocal infiltrate bilaterally diagnosis of bilateral pneumonia made admitted to regular nursing floor for further management 1. Bilateral pneumonia ? Patient managed with broad-spectrum antibiotic therapy with Unasyn as well as azithromycin. Has also been placed on oxygen titrated to keep saturation greater than 90. There was a concern for possible aspiration and speech therapy consulted for speech eval 06/09/2022; patient seen remains on broad-spectrum antibiotic therapy 06/10/2022; remains on supplemental oxygen 2. Chronic lymphocytic leukemia ? May partly explain for patient markedly elevated WBC count. Daily CBC ordered for monitoring 3. Severe Hypernatremia ? Blood levels peaked at 163 has been started on D5W with every 4 hour monitoring of electrolytes ordered. So placed to nephrology Case discussed with Dr. Vu ? 06/09/2022; patient sodium levels down to 148. Still not optimal we will continue with current treatment and BMP ordered for a.m. ? 06/10/2022; sodium levels down to 144 4. Physical deconditioning - Requested for PT OT eval and social and human services assistant to assist with discharge planning 5. Hypokalemia -Corrected per protocol, repeat potassium ordered for a.m. ? 06/10/2022 potassium level still low at 3.4 additional potassium given 7. Severe malnutrition r/t? to pt c/o difficulty swallowing and inability to consume adequate nutrition to meet est nutritional needs as evidenced by need for [facility] altered diet w/ [employer]IND[employer] MECHANIC to follow, pt report of wt loss (unsure amount/timeframe), BMI <15, obvious fat/muscle loss in face, torso, upper/lower extremies and po intake meeting < 75% of estimated nutrition needs. Patient seen by dietitian recommendations reviewed. 8. Thrombocytopenia ? May be related to patient underlying CLL patient is on Lovenox discontinued daily monitoring with CBC ordered 9. DVT prophylaxis ? Patient was on Lovenox discontinued in view of of his thrombocytopenia 10. Dysphagia ? 06/11/2022; patient anticipated discharge the day prior was discontinued following discovery of significant oropharyngeal dysphagia with significant risk for aspiration. Patient was kept strictly n.p.o. consult placed to GI plans for patient to undergo PEG tube placement ? 06/12/2022; patient underwent PEG tube placement on 06/11/2022. Tube feed initiated. Patient also for tolerated tube feed. Plans for patient to be assessed for possible discharge to a long term facility -Patient underwent PEG tube placement on 06/12/2022. Discharge to feed as below NPO per [employer]CH[employer]IC; Via PEG- Jevity 1.5 at goal rate of 50mL/hour w/ 150mL H2O flush every 4 hours to provide 1800 calories, 76.5 g protein, and 1812mL fluid/day. Given malnutrition, pt w/ significant risk for refeeding. Recommend start at 20mL/hour and slowly increase by 10mL every 12 hours as tolerated until goal rate is achieved. Close monitoring of electrolytes recommended as enteral nutrition is initiated. Daily wts. Time Spent on patient; 40 minutes Medications at Discharge Home Medications cholecalciferol (vitamin D3) 25 mcg (1,000 unit) tablet (Vitamin D3) 25 mcg PO DAILY SUPPLEMENT 06/05/22 lidocaine HCl 2 % mucosal solution (Lidocaine Viscous) 1 applic PO 4X/DAY PRN SORE MOUTH 06/05/22 albuterol sulfate 2.5 mg/3 mL (0.083 %) solution for nebulization 2.5 mg (3 mL) inhalation Q2H PRN PRN Shortness of Breath/Wheezing #0 mL 06/10/22 amoxicillin 500 mg-potassium clavulanate 125 mg tablet (Augmentin) 1 tab PO Q12H #14 tabs 06/10/22 azithromycin 500 mg tablet (Zithromax) 500 mg PO DAILY 3 days #3 tabs 06/10/22 food supplemt, lactose-reduced 0.08 gram-1.5 kcal/mL oral liquid (Ensure Plus High Protein) 120 ml PO 4X/DAY #0 mL 06/10/22 menthol 0.44 %-zinc oxide 20.6 % topical ointment (Calmoseptine) 1 applic topical TID #0 grams 06/10/22 Hospital Course Summary of Care Provided Minutes Spent on Discharge: 40 Physical Exam Narrative GENERAL: cooperative but frail looking HEENT: Atraumatic; poor oral dentition EYES; Anicteric, Normal Conjunctiva NECK; supple, normal thyroid, RESPIRATORY: Diminished to auscultation CARDIOVASCULAR: Regular S1 S2, GI: soft, normoactive bowel sounds, : No Renal angle tenderness; EXTREMITIES: No edema, no clubbing, MUSCULOSKELETAL: no muscle wasting NEURO: Awake; no lateralizing signs. SKIN: No Rash PSYCH; Flat affect Medical Records Data Medical Nutrition Assessment Dietitian: Malnutrition Criteria Met Start: 06/06/22 13:15 Freq: Status: Active Protocol: Document 06/11/22 08:19 (Rec: 06/11/22 08:19 AG [id number]) Nutrition Malnutrition Evidence of Malnutrition Exists Yes Malnutrition (severe): Chronic Evidenced By Suboptimal Energy Intake ( Severe),Weight Loss (Severe), Physical Changes (Severe) Intake Problem Inadequate Oral Intake Etiology related to ongoing anorexia/ refusal of meals Signs/Symptoms as evidenced by less than 50% intake of meals since admission Status Active Problem Clinical Problem Chronic Disease or Condition Related Malnutrition Etiology Severe protein-calorie malnutrition in the context of chronic disease related to difficulty swallowing and inadequate oral intake Signs/Symptoms as evidenced by BMI 14.6, obvious fat/muscle loss in face, torso, upper/lower extremities per physical exam and estimated PO intake meeting < 50% of estimated nutrition needs Status Active Problem Recommendation Dietitian Recommendations/Changes NPO per [employer]CH[employer]IC; Via PEG- Jevity 1 .5 at goal rate of 50mL/hour w / 150mL H2O flush every 4 hours to provide 1800 calories , 76.5 g protein, and 1812mL fluid/day. Given malnutrition, pt w/ significant risk for refeeding. Recommend start at 20mL/hour and slowly increase by 10mL every 12 hours as tolerated until goal rate is achieved. Close monitoring of electrolytes recommended as enteral nutrition is initiated . Daily wts. Weight / BMI Weight Weight: 46.1 kg Body Mass Index (BMI) 14.6 ABG / Lab / Microbiology Data Result Diagrams: 06/11/22 05:30 06/11/22 05:30 Laboratory: Laboratory Results - last 24 hr 06/11/22 15:49: POC Glucose 107 H 06/11/22 22:00: POC Glucose 84 06/12/22 06:34: POC Glucose 145 H Microbiology: Microbiology 06/05/22 21:56 Blood Culture (Wb) - Left Hand Blood Culture - Final No growth in 5 days. 06/05/22 22:02 Blood Culture (Wb) - Venous Blood Culture - Final No growth in 5 days. 06/10/22 11:15 Nasal Secretion SARS-CoV-2 Antigen (Rapid) - Final 06/05/22 19:15 Urine, Clean Catch Legionella Antigen - Final 06/05/22 19:15 Urine, Clean Catch Streptococcus pneumoniae Antigen (M - Final D/C Instructions Discharge Diet: - (NPO per [employer] MECHANIC; Via PEG- Jevity 1.5 at goal rate of 50mL/hour w/ 150mL H2O flush every 4 hours to provide 1800 calories, 76.5 g protein, and 1812mL fluid/day. Given malnutrition, pt w/ significant risk for refeeding. Recommend start at 20mL/hour and slowly increase by 10mL every 12 hours as tolerated u) Call your doctor if you observe: Fever of 101 or Higher, Shortness of breath, Fainting spells and Chest pain Meaningful Use Info Meaningful Use Diagnoses (Choose all that apply): None applicable Discharge Plan Admission Admit Date/Time: 06/05/22 21:09 Attending Provider: Camacho Mckeon Primary Care Provider: Andra Dasilva Consulting Providers: Braden Ridley ; Dax Colbert ; Vanessa Reyes Discharge Orders/Prescriptions Prescriptions: New albuterol sulfate 2.5 mg /3 mL (0.083 %) Solution For Nebulization 2.5 mg inhalation Q2H PRN PRN (Reason: Shortness of Breath/Wheezing) Qty: 0 0RF menthol-zinc oxide [Calmoseptine] 0.44-20.6 % Ointment 1 applic topical TID Qty: 0 0RF Protocol: *Topical Application Instructions APPLICATION INSTRUCTIONS: carroll rectal area Ensure Plus High Protein 0.08 gram-1.5 kcal/mL Liquid 120 ml PO 4X/DAY Qty: 0 0RF amoxicillin-pot clavulanate [Augmentin] 500-125 mg tablet 1 tab PO Q12H Qty: 14 0RF azithromycin [Zithromax] 500 mg tablet 500 mg PO DAILY 3 Days Qty: 3 0RF Continued lidocaine HCl [Lidocaine Viscous] 2 % solution 1 applic PO 4X/DAY PRN (Reason: SORE MOUTH) Rx Instructions: Mix half teaspoon with 1 teaspoon maalox and coat mouth 4 times daily as needed for sore mouth. cholecalciferol (vitamin D3) [Vitamin D3] 25 mcg (1,000 unit) Tablet 25 mcg PO DAILY Referrals / Follow Up: Andra Dasilva MD [Primary Care Provider] - Within 2 Weeks Disposition Disposition (needs filled in before D/C Order can be placed): [facility] Facility Charges/Coding Visit Charges Inpatient E&M: 51544 Disch Hosp >30min
--- NOTE | 2022-06-12 10:24 | CASEMGMT ---
Social Work Patient continues to be medically cleared per Dr. Mckeon This health and social care teacher reached out to [facility], they are able to accept patient today after noon. This health and social care teacher sent updated discharge information along with MBS. This social updated patient on above. Patient voiced understanding and reports that plan is for patient family to transport. Telephone call to patient daughter, Pao. This health and social care teacher updated Pao on above information. Pao agreeable to discharge today and plans to pick patient up at 12:30 today. This health and social care teacher updated [facility] on discharge time and family transporting. Medical team updated. PLAN: [facility], skilled. Proposed discharge date: 06/12/2022 Ced VIDES, ALISES
[2022-06-12 11:00] VITALS: BP 116/71; PULSE 77; RESP 16; TEMP 37.2; O2SAT 93
[2022-06-12] MEDS: Insulin Lispro 100 UNIT/ML INSULN.PEN SC (11:22)
[2022-06-12 11:46] LABS: Bedside Glucose 156 mg/dL (74-106)
--- NOTE | 2022-06-12 11:54 | CASEMGMT ---
Social Work Updated COVID test sent. Ced Tyler PEDIATRIC PHYSICAL THERAPY ASSISTANT, JAREN-S
[2022-06-12 12:25] VITALS: BP 124/81; PULSE 83; RESP 16; TEMP 37.4; O2SAT 92
--- NOTE | 2022-06-12 12:55 | NURSING ---
report called to Fern at [facility]
[2022-06-15 09:28] LABS: Pathologist Review Reviewed
== END 2022-06-12 13:18 | disposition skilled nursing facility (03) | DRG 177 ==
LOC: ED 21:32 → MS3 21:36
PROVIDERS: Family Medicine; Internal Medicine Gastroenterology; Admitting Provider Hospitalist; Emergency Provider Emergency Medicine; PCP Internal Medicine; Visit Provider Internal Medicine
PROC: 0DJ08ZZ Inspection of Upper Intestinal Tract, Via Natural or Artificial Opening Endoscopic (ICD-10-PCS; CPT 43235; principal; 2022-06-11 11:25)
DX: J69.0 Pneumonitis due to inhalation of food and vomit (principal); E43 Unspecified severe protein-calorie malnutrition; N17.9 Acute kidney failure, unspecified; E87.0 Hyperosmolality and hypernatremia; C91.10 Chronic lymphocytic leukemia of B-cell type not having achieved remission; Z68.1 Body mass index [BMI] 19.9 or less, adult; D69.6 Thrombocytopenia, unspecified; E86.0 Dehydration; Z93.1 Gastrostomy status; J18.9 Pneumonia, unspecified organism; E87.6 Hypokalemia; E87.8 Other disorders of electrolyte and fluid balance, not elsewhere classified; I10 Essential (primary) hypertension; Z80.3 Family history of malignant neoplasm of breast; R13.10 Dysphagia, unspecified; Z66 Do not resuscitate; K25.9 Gastric ulcer, unspecified as acute or chronic, without hemorrhage or perforation
CPT/HCPCS: 36415; 71045; 74230; 80048; 80053; 81001; 82607; 82728; 82746; 82962; 83036; 83540; 83550; 83605; 83615; 83735; 84100; 84484; 85025; 85610; 85730; 86850; 86880; 86900; 86901; 86920; 86922; 87040; 87426; 87449; 88305; 88341; 88342; 92526; 92610; 92611; 93005; 97110; 97162; 97165; 97530; 97535; 97802; 97803; 99283; J7030; J7040; J7050; P9016; A4216; J0295; J0696; J2405

== ENCOUNTER 2022-06-13 09:15 | Inpatient (IN) | payer MEDICARE, SELFPAY ==
[2022-06-13] VITALS (9 sets, daily range): BP systolic 125–138; BP diastolic 79–92; PULSE 55–95; RESP 18–27; TEMP 36.3–37.9; O2SAT 92–99; BMI 19.6; BMI 17.7
--- NOTE | 2022-06-13 09:29 | EX.ED.DYSGE1 ---
HPI History of Present Illness Chief Complaint: Fever Detail of Chief Complaint: Fever Informant: patient and SNF Narrative Narrative: Patient presents the emergency department with a fever that was noted by [facility] today up to 102. Patient was just discharged from the hospital yesterday after being admitted for bilateral pneumonia. Patient was discharged on Augmentin and azithromycin which she is scheduled to finish in 24 hours. Patient is a very poor historian but denies shortness of breath. He denies chest or abdomen pain. Patient describes a mild cough. During his visit on last admission patient had a feeding tube placed. [facility] Medical History (Updated 06/13/22 @ 11:[address] Carolee Mendoza, DO) Cholelithiasis Hypertension Leukemia Thrombocytopenia Home Medications cholecalciferol (vitamin D3) 25 mcg (1,000 unit) tablet (Vitamin D3) 25 mcg PO DAILY SUPPLEMENT 06/05/22 [History Last Taken 06/04/22] lidocaine HCl 2 % mucosal solution (Lidocaine Viscous) 1 applic PO 4X/DAY PRN SORE MOUTH 06/05/22 [History Last Taken 06/04/22] albuterol sulfate 2.5 mg/3 mL (0.083 %) solution for nebulization 2.5 mg (3 mL) inhalation Q2H PRN PRN Shortness of Breath/Wheezing #0 mL 06/10/22 [Rx Last Taken Unknown] amoxicillin 500 mg-potassium clavulanate 125 mg tablet (Augmentin) 1 tab PO Q12H #14 tabs 06/10/22 [Rx Last Taken Unknown] azithromycin 500 mg tablet (Zithromax) 500 mg PO DAILY 3 days #3 tabs 06/10/22 [Rx Last Taken Unknown] menthol 0.44 %-zinc oxide 20.6 % topical ointment (Calmoseptine) 1 applic topical TID #0 grams 06/10/22 [Rx Last Taken Unknown] lactose-reduced food with fiber oral liquid 30 ml feeding tube CONT 06/13/22 [History Last Taken Unknown] Allergy/AdvReac Type Severity Reaction Status Date / Time chocolate flavor AdvReac PT UNSURE Verified 06/13/22 09:21 OF REACTION Family History Mother , AGE 76 [place] Myocardial infarction Hypertension Father Heart disease Sister Breast cancer Other Diabetes Surgical History No pertinent past surgical history S/P ERCP Social History Smoking Status: Never smoker alcohol intake: never substance use type: does not use additional social history: DOES NOT USE ASPIRIN DOES NOT USE IBUPROFEN ROS ROS ED Review of Systems ROS Unobtainable: other Constitutional Constitutional ED: Reports lethargy; Denies chills, fever(s), sweats or weight loss Eyes Eyes: Denies blurry vision, change in vision or diplopia ENT ENT ED: Denies rhinorrhea or sore throat Cardiovascular Cardiovascular: Denies chest pain, orthopnea or racing heartbeat Respiratory/Chest Respiratory/Chest: Reports cough; Denies dyspnea, dyspnea on exertion, orthopnea or sputum Gastrointestinal Gastrointestinal: Denies abdominal pain, diarrhea, nausea or vomiting Genitourinary Genitourinary ED: Denies dysuria, hematuria or urinary frequency Musculoskeletal Musculoskeletal: Denies arthralgias, back pain, myalgias or neck pain Integumentary Denies abscess, Abrasions or rash Neurologic Neurologic: Denies headache(s) or weakness Psychiatric Psychiatric: Denies anxiety, depression or suicidal thoughts Endocrine Endocrinology: Denies polydipsia, polyphagia or polyuria Hematologic/Lymphatic Hematologic/Lymphatic: Denies easy bleeding, easy bruising or lymphadenopathy Allergic/Immunologic Allergic/Immunologic ED: Denies mouth swelling, tongue swelling or urticaria EXAM Physical Exam Const Vital Signs: 06/13/22 09:16 06/13/22 09:22 06/13/22 09:20 Temperature 99.9 F H 99.9 F H Temperature Source Temporal Temporal Pulse Rate 80 81 Respiratory Rate 24 H 22 H Respiratory Effort Short of Breath Respiratory Pattern Normal Blood Pressure 131/85 H 131/86 H Blood Pressure Mean 100 101 Pulse Ox 93 93 Oxygen Delivery Method Room Air Room Air 06/13/22 10:20 Temperature 100.2 F H Temperature Source Temporal Pulse Rate 77 Respiratory Rate 27 H Respiratory Effort Respiratory Pattern Blood Pressure 130/90 H Blood Pressure Mean 103 Pulse Ox 92 Oxygen Delivery Method Room Air Positive cachectic General Appearance ED: cachectic and NAD Nutritional Appearance: cachectic HEENT Reports TM's clear and dry mucous membranes normocephalic and atraumatic; Negative for trauma or tenderness Tympanic Membrane ED: Yes TM's clear Mouth ED: Yes dry mucous membranes Mouth: dry mucous membranes Eyes PERRL and EOMs intact bilaterally General Eye ED: Negative for pale conjunctiva or scleral icterus Neck no lymphadenopathy, supple and no JVD General: Negative for tenderness Chest Wall inspection of chest normal and palpation of chest normal Chest: Negative for tenderness Resp normal respiratory effort and clear to auscultation bilaterally Effort and Inspection: Negative for respiratory distress or pain with movement Auscultation: Negative for rhonchi, wheezes or diminished lung sounds Cardio regular rate, regular rhythm, S1 normal heart sound, S2 normal heart sound and no murmurs Peripheral Pulses: pulses 2+ throughout GI normal to inspection, nondistended, normoactive bowel sounds, soft to palpation, non-tender, non-distended and no masses Back/Spine no CVA tenderness and no thoracic nor lumbar tenderness Extremity normal to inspection General Extremety ED: Negative for edema General Extremity: Negative for edema Neuro oriented x3, CN's II-XII intact bilaterally, no sensory deficits noted and gait normal Sensorium / Orientation: awake, alert, oriented to person, oriented to place and oriented to time Motor Exam: strength 5/5 throughout and strength abnormal Psych mental status grossly normal Skin no rashes or lesions noted and no wounds MDM MDM MDM Narrative Medical decision making narrative: IV line established on arrival. Patient placed on cardiac monitor technician. Patient was ordered normal saline. Blood cultures ordered. Patient had medical records from previous admission evaluated. I reviewed patient's discharge summary by Dr. Mckeon who noted patient's admission for bilateral pneumonia as well as hypernatremia and gastric tube placement due to patient's deconditioning and malnourishment. Patient also had CUAUHTEMOC during last visit. Patient had an elevation in his WBC count compared to prior to discharge and is 60,000 today. Chemistries unremarkable lactate was normal. 1 view chest x-ray obtained interpreted by myself as worsening bilateral infiltrates and radiology was in agreement. Patient has a gastric tube and there is concern for worsening pneumonia with possible aspiration so I covered him with Zosyn 4.5 g IV. I discussed case with hospitalist who will evaluate patient for admission Lab Data Labs: Laboratory Results - last 24 hr 06/13/22 06/13/22 06/13/22 10:00 10:00 10:00 WBC 60.4 H* RBC 3.98 L Hgb 9.1 L Hct 32.8 L MCV 82.4 MCH 22.9 L MCHC 27.7 L RDW Std Deviation 64.5 H RDW Coeff of Florin 22.5 H Plt Count 100 L Neut % (Auto) Not Reportable Sodium 140 Potassium 3.8 Chloride 108 H Carbon Dioxide 26.0 Anion Gap 6 BUN 15 Creatinine 0.90 Estim Creat Clear Calc 58.55 Est GFR (MDRD) Af Amer 105 Est GFR (MDRD) Non-Af 87 BUN/Creatinine Ratio 16.7 Glucose 92 Lactic Acid 1.1 Calcium 7.6 L Urine Color Urine Clarity Urine pH Ur Specific [place] Urine Protein Urine Glucose (UA) Urine Ketones Urine Occult Blood Urine Nitrite Urine Bilirubin Urine Urobilinogen Ur Leukocyte Esterase Urine RBC Urine WBC Ur Squamous Epith Cells Urine Bacteria Urine Mucus 06/13/22 10:55 WBC RBC Hgb Hct MCV MCH MCHC RDW Std Deviation RDW Coeff of Florin Plt Count Neut % (Auto) Sodium Potassium Chloride Carbon Dioxide Anion Gap BUN Creatinine Estim Creat Clear Calc Est GFR (MDRD) Af Amer Est GFR (MDRD) Non-Af BUN/Creatinine Ratio Glucose Lactic Acid Calcium Urine Color Yellow Urine Clarity Clear Urine pH 5.0 Ur Specific [place] 1.025 Urine Protein 15 H Urine Glucose (UA) Normal Urine Ketones Negative Urine Occult Blood Negative Urine Nitrite Negative Urine Bilirubin Negative Urine Urobilinogen Normal Ur Leukocyte Esterase Negative Urine RBC 0 SEEN Urine WBC 0 SEEN Ur Squamous Epith Cells 0 SEEN Urine Bacteria 0 SEEN Urine Mucus 0 SEEN Radiography Chest X-Ray - ED: 1 View Diagnostic Testing: Clinical Impression(s) from Imaging Studies Chest X-Ray 06/13/22 10:08 IMPRESSION: Interval worsening of bilateral patchy opacities concerning for multifocal pneumonia. Blunting of the right costophrenic angle suggestive of an effusion. Electronically Signed: Pauline Perdue MD at 10:28 EST , 1 view chest x-ray obtained interpreted by myself as bilateral infiltrates that appear to be progressed and worsened compared to prior study. Radiology was in agreement. Radiology also noted blunting of the right costophrenic angle suggestive of an effusion. Discharge Plan Triage Chief Complaint: Fever ED Provider: Carolee Mendoza Dx/Rx/DC Orders Clinical Impression: Bilateral pneumonia, Leukocytosis, Tachypnea, Personal history of chronic lymphocytic leukemia, Adult failure to thrive Prescriptions: No Action lidocaine HCl [Lidocaine Viscous] 2 % solution 1 applic PO 4X/DAY PRN (Reason: SORE MOUTH) Rx Instructions: Mix half teaspoon with 1 teaspoon maalox and coat mouth 4 times daily as needed for sore mouth. cholecalciferol (vitamin D3) [Vitamin D3] 25 mcg (1,000 unit) Tablet 25 mcg PO DAILY albuterol sulfate 2.5 mg /3 mL (0.083 %) Solution For Nebulization 2.5 mg inhalation Q2H PRN PRN (Reason: Shortness of Breath/Wheezing) Qty: 0 0RF menthol-zinc oxide [Calmoseptine] 0.44-20.6 % Ointment 1 applic topical TID Qty: 0 0RF Protocol: *Topical Application Instructions APPLICATION INSTRUCTIONS: carroll rectal area amoxicillin-pot clavulanate [Augmentin] 500-125 mg tablet 1 tab PO Q12H Qty: 14 0RF Rx Instructions: d/c on 06/12/2022 azithromycin [Zithromax] 500 mg tablet 500 mg PO DAILY 3 Days Qty: 3 0RF Rx Instructions: d/c on 06/12/2022 Isosource 1.5 Musa Liquid 30 ml feeding tube CONT Rx Instructions: 30ml/hr, increase by 10ml every 12 hours if tolerated Primary Care Provider: Andra Dasilva Referrals: Andra Dasilva MD [Primary Care Provider] - Disposition Disposition: Acute Care Hospital [facility]
[2022-06-13] MEDS: 0.9% Normal Saline 1,000 ML 150 ML IV (09:58)
--- NOTE | 2022-06-13 10:08 | RAD_ITS ---
INDICATION: cough, fever EXAMINATION/TECHNIQUE: X-RAY - XR Chest 1 View COMPARISON: June 05, 2022 FINDINGS: LINES/DEVICES: None. LUNGS: There are bilateral patchy opacities that have progressed since the prior examination. There is blunting of the right costophrenic angle. MEDIASTINUM AND CARDIOVASCULAR STRUCTURES: Cardiac silhouette not enlarged. Central airways and mediastinal contour are unremarkable. BONES AND SOFT TISSUES: Unremarkable. RAD/Chest 1 View (Portable) IMPRESSION: Interval worsening of bilateral patchy opacities concerning for multifocal pneumonia. Blunting of the right costophrenic angle suggestive of an effusion. Electronically Signed: Pauline Perdue MD at 10:28 EST ,
[2022-06-13 10:21] LABS: Hematocrit 32.8 % (40-54); Hemoglobin 9.1 g/dL (13.0-16.5); Mean Corp Hgb Conc 27.7 g/dL (32-36); Mean Corpuscular Hgb 22.9 pg (27.0-32.0); Mean Corpuscular Volume 82.4 fL (80-94); POSITIVE COUNT YES; POSITIVE DIFFERENTIAL YES; POSITIVE MORPHOLOGY YES; Platelet Count 100 K/mm3 (150-450); RBC Distribution Width CV 22.5 % (11.6-14.6); RBC Distribution Width SD 64.5 fl (35.1-43.9); Red Blood Count 3.98 M/mm3 (4.6-6.2)
[2022-06-13 10:33] LABS: Anion Gap 6 (5-15); BUN 15 mg/dL (7-18); BUN/Creat Ratio 16.7 RATIO (10-20); Calcium,Total 7.6 mg/dL (8.5-10.1); Chloride 108 mmol/L (98-107); EST Glomerular Filtration Rate 87 mL/min (>60); Est Glom Filt Rate - Afr Amer 105 mL/min (>60); Estimated Creatinine Clearance 58.55 ml/min; Glucose 92 mg/dL (74-106); Potassium 3.8 mmol/L (3.5-5.1); Sodium Level 140 mmol/L (136-145)
[2022-06-13 10:34] LABS: White Blood Count 60.4 K/mm3 (4.4-11.0)
[2022-06-13 10:35] LABS: Differential Indicated MANUAL DIFF
[2022-06-13 10:44] LABS: Lactic Acid 1.1 mmol/L (0.4-1.9)
[2022-06-13 11:00] LABS: Bacteria 0 SEEN /hpf (None Seen); Mucous, Urine 0 SEEN /hpf (<or=2+); Red Blood Cells-Urine 0 SEEN /hpf (0-5); Squamous Epithelial Cells - UA 0 SEEN /hpf (0-5); White Blood Cells 0 SEEN /hpf (0-5)
[2022-06-13 11:01] LABS: Color, Urine Yellow (Yellow); Glucose, Dipstick Normal (Normal); Ketone-Dipstick Negative (Negative); Leukocyte Esterase-Dipstick Negative /ul (Negative); Nitrite-Dipstick Negative (Negative); Occult Blood-Urine Negative /ul (Negative); Protein-Dipstick 15 mg/dl (Negative); Specific Gravity, Urine 1.025 (1.002-1.030); Urine Bilirubin Dipstick Negative (Negative); Urine Clarity Clear (Clear); Urine Urobilinogen Normal (Normal)
--- NOTE | 2022-06-13 11:18 | NURSING ---
MED SURG KITTOE PNEUMONIA, LEUKOCYTOSIS, TACHYPNEA
[2022-06-13 11:22] LABS: Eosinophil 1 % (0-5); Lymphocyte 98 % (19-41); Neutrophil-Segmented 1 % (47-70); Platelet Estimate ADEQUATE (ADEQ); Total Cells Counted 100 (MANUAL DIFF)
[2022-06-13 11:23] LABS: Anisocytosis 1+
--- NOTE | 2022-06-13 11:23 | HP.PCM.HOS_ITS ---
HPI - General General Date of Admission: 06/13/22 Date of Service: 06/13/22 Chief Complaint: Fever HPI Narrative NYA ALATORRE, is a 81 M who presents with fever. Patient has significant past medical history including chronic lymphocytic leukemia was recently admitted for bilateral pneumonia suspected to be secondary to secondary to asp iration. Patient underwent PEG tube placement after he was found to have significant aspiration during all phases of swallowing was discharged to shelter facility. Patient was however brought back yesterday following his discharge with fever. Chest x-ray obtained on admission did show worsening bibasilar infiltrate. An assessment of pneumonia made admitted to regular nursing floor for further management [facility] Medical History Cholelithiasis Hypertension Leukemia Thrombocytopenia Home Medications cholecalciferol (vitamin D3) 25 mcg (1,000 unit) tablet (Vitamin D3) 25 mcg PO DAILY SUPPLEMENT 06/05/22 [History Last Taken 06/04/22] lidocaine HCl 2 % mucosal solution (Lidocaine Viscous) 1 applic PO Q6H PRN sore mouth 06/05/22 [History Last Taken 06/04/22] albuterol sulfate 2.5 mg/3 mL (0.083 %) solution for nebulization 2.5 mg inhalation Q2H PRN Shortness of Breath/Wheezing 06/13/22 [History Last Taken Unknown] lactose-reduced food with fiber 0.06 gram-1.5 kcal/mL oral liquid (Jevity 1.5 Musa) 20 ml feeding tube Q48H SUPPLEMENT 06/13/22 [History Last Taken 06/12/22 13:16] lactose-reduced food with fiber oral liquid 30 ml feeding tube CONT SUPPLEMENT 06/13/22 [History Last Taken Unknown] menthol 0.44 %-zinc oxide 20.6 % topical ointment (Calmoseptine) 1 applic topical TID SKIN IRRITATION 06/13/22 [History Last Taken 06/09/22 21:29] Allergy/AdvReac Type Severity Reaction Status Date / Time chocolate flavor AdvReac PT UNSURE Verified 06/13/22 09:21 OF REACTION Family History Mother , AGE 76 [place] Myocardial infarction Hypertension Father Heart disease Sister Breast cancer Other Diabetes Surgical History No pertinent past surgical history S/P ERCP Social History Smoking Status: Never smoker alcohol intake: never substance use type: does not use additional social history: DOES NOT USE ASPIRIN DOES NOT USE IBUPROFEN ROS ROS Narrative GENERAL: Fever HEENT: denies headache, sinus congestion, RESPIRATORY: shortness of breath CARDIAC: denies chest pain, palpitations, GASTROINTESTINAL: denies abdominal pain, nausea, GENITOURINARY: denies dysuria, urgency, frequency, heamaturia EXTREMITY: denies swelling MUSCULOSKELETAL: denies current joint pain or tenderness NEUROLOGIC: denies focal numbness, weakness, tingling HEMATOLOGIC: denies easy bruising and/or hemorrhage INTEGUMENT: denies rashes PSYCHIATRIC: denies suicidal or homicidal ideation Vital Signs Vital Signs Vital Signs: 06/13/22 09:16 06/13/22 09:22 06/13/22 09:20 Temperature 99.9 F H 99.9 F H Temperature Source Temporal Temporal Pulse Rate 80 81 Respiratory Rate 24 H 22 H Respiratory Effort Short of Breath Respiratory Pattern Normal Blood Pressure 131/85 H 131/86 H Blood Pressure Mean 100 101 Pulse Ox 93 93 Oxygen Delivery Method Room Air Room Air 06/13/22 10:20 Temperature 100.2 F H Temperature Source Temporal Pulse Rate 77 Respiratory Rate 27 H Respiratory Effort Respiratory Pattern Blood Pressure 130/90 H Blood Pressure Mean 103 Pulse Ox 92 Oxygen Delivery Method Room Air Weight Weight: 62.2 kg Body Mass Index (BMI) 19.6 Physical Exam Narrative GENERAL: cooperative but frail looking HEENT: Atraumatic; poor oral dentition EYES; Anicteric, Normal Conjunctiva NECK; supple, normal thyroid, RESPIRATORY: Diminished to auscultation CARDIOVASCULAR:? Regular S1 S2, GI:? soft, normoactive bowel sounds, PEG tube in place : No Renal angle tenderness; EXTREMITIES:? No edema, no clubbing, MUSCULOSKELETAL:? no muscle wasting NEURO:? Awake;? no lateralizing signs. SKIN:? No Rash PSYCH; Flat? affect Results Lab / Micro Data Result Diagrams: 06/13/22 10:00 06/13/22 10:00 Labs: Laboratory Results - last 24 hr 06/13/22 10:00: WBC 60.4 H*, RBC 3.98 L, Hgb 9.1 L, Hct 32.8 L, MCV 82.4, MCH 22.9 L, MCHC 27.7 L, RDW Std Deviation 64.5 H, RDW Coeff of Florin 22.5 H, Plt Count 100 L, Neut % (Auto) Not Reportable 06/13/22 10:00: Sodium 140, Potassium 3.8, Chloride 108 H, Carbon Dioxide 26.0, Anion Gap 6, BUN 15, Creatinine 0.90, Estim Creat Clear Calc 58.55, Est GFR (MDRD) Af Amer 105, Est GFR (MDRD) Non-Af 87, BUN/Creatinine Ratio 16.7, Glucose 92, Calcium 7.6 L 06/13/22 10:00: Lactic Acid 1.1 06/13/22 10:55: Urine Color Yellow, Urine Clarity Clear, Urine pH 5.0, Ur Specific [place] 1.025, Urine Protein 15 H, Urine Glucose (UA) Normal, Urine Ketones Negative, Urine Occult Blood Negative, Urine Nitrite Negative, Urine Bilirubin Negative, Urine Urobilinogen Normal, Ur Leukocyte Esterase Negative, Urine RBC 0 SEEN, Urine WBC 0 SEEN, Ur Squamous Epith Cells 0 SEEN, Urine Bacteria 0 SEEN, Urine Mucus 0 SEEN Micro: Microbiology 06/13/22 09:55 Nasal Secretion SARS-CoV-2 & FLU Antigen (Rapid) - Final Radiology Impression Chest X-Ray 06/13/22 10:08 IMPRESSION: Interval worsening of bilateral patchy opacities concerning for multifocal pneumonia. Blunting of the right costophrenic angle suggestive of an effusion. Electronically Signed: Pauline Perdue MD at 10:28 EST , Assessment & Plan Assessment/Plan (1) Bilateral pneumonia: (2) Leukocytosis: PLAN: Plan Patient is a 81-year-old gentleman with history of chronic lymphocytic leukemia presented presented with fever a day after being discharged to an [facility] imaging studies did show Interval worsening of bilateral patchy opacities concerning for multifocal pneumonia. 1.? Recurrent bilateral pneumonia ? Patient is a significant risk for multiple drug-resistant organisms in addition to aspiration. Admitted to regular nursing floor started on broad- spectrum antibiotic therapy with vancomycin as well as Zosyn repeat cultures sent placed on supplemental oxygen titrated to keep saturation greater than 90. Patient progressed being monitored with CBC as well as oxygen requirement 2.? Chronic lymphocytic leukemia ? May partly explain for patient markedly elevated WBC count.? Daily CBC ordered for monitoring 3.? Severe malnutrition r/t? 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 Patient seen by dietitian recommendations reviewed. 4.? Dysphagia ?patient underwent PEG tube placement on 06/11/2022.? Tube feed initiated.? 5.? Thrombocytopenia ? May be related to patient underlying CLL patient is on Lovenox discontinued daily monitoring with CBC ordered 6.? Physical deconditioning - Requested for PT OT eval and oncology social worker to assist with discharge planning 7. DVT prophylaxis ? Bilateral SCDs only given patient thrombocytopenia Time spent in the patient's overall evaluation,decision-making process, review of diagnostic data, adjustment of management, discussion with other providers, nursing nursing and ancillary staff involved in patient's care documentation, 58 Minutes Charges/Coding Visit Charges Inpatient E&M: 79729 Init Hosp L2
[2022-06-13 11:25] LABS: Absolute Neutrophil Count 1.2 X10^3/uL (2.0-7.7)
[2022-06-13 11:26] LABS: Hypochromasia 1+; Ovalocyte 1+; Poikilocytosis 1+
[2022-06-13] MEDS: Acetaminophen 650 MG/20 ML UDC 1000 MG GT (11:45)
[2022-06-13] MEDS: Vancomycin IV 1,000 MG/200 ML BAG 200 MG IV (13:24)
[2022-06-13] MEDS: Dext 5%-0.45% NS 1,000 ML 75 ML IV (13:24)
--- NOTE | 2022-06-13 14:44 | PCM.RX.CS ---
Consult Pharmacy has been consulted to manage selected antiobiotic: Vancomycin Type of Consult: New start Suspected Infection: Pneumonia Labs: Sodium 140 mmol/L (136-145) 06/13/22 10:00 Potassium 3.8 mmol/L (3.5-5.1) 06/13/22 10:00 Chloride 108 mmol/L (98-107) H 06/13/22 10:00 Carbon Dioxide 26.0 mmol/L (21.0-32.0) 06/13/22 10:00 Anion Gap 6 (5-15) 06/13/22 10:00 BUN 15 mg/dL (7-18) 06/13/22 10:00 Creatinine 0.90 mg/dL (0.70-1.30) 06/13/22 10:00 Est GFR (MDRD) Af Amer 105 mL/min (>60) 06/13/22 10:00 Est GFR (MDRD) Non-Af 87 mL/min (>60) 06/13/22 10:00 BUN/Creatinine Ratio 16.7 RATIO (10-20) 06/13/22 10:00 Glucose 92 mg/dL (74-106) 06/13/22 10:00 Microbiology: Microbiology 06/13/22 10:55 Urine Catheter - Catheter Legionella Antigen - Final 06/13/22 10:55 Urine Catheter - Catheter Streptococcus pneumoniae Antigen (M - Final 06/13/22 09:55 Nasal Secretion SARS-CoV-2 & FLU Antigen (Rapid) - Final Weight used for dosin kg Estimated Creatinine Clearance: 58mls/min Goal Trough: 15-20 mcg/mL Pharmacy Plan for Drug Dosing: NEW START IV VANCOMYCIN Consulting Physician: Dr. Sharif Mckeon Indication: Pneumonia Goal Trough: 15-20 SrCr: 0.9 CrCl: 58mls/min Comments: pt received a 1000mg x1 loading dose on 06/13/22 at 1324 Vancomycin Dose: based on pts weight and renal function, recommend an initial dose of 500mg q12h. trough before the 4th total dose Pending Level: 06/13/22 at 0030 Pharmacy Service will continue to monitor and adjust dosing as required. Follow-Up Labs: Trough Vancomycin - 06/25/22 at 0030
[2022-06-13] MEDS: Jevity 1.5 1,000 ML 20 ML GT (16:19)
[2022-06-13 16:50] LABS: M R Staph aureus DNA By PCR Negative (Negative); Probe Check PASS; Specimen Processing Control PASS
--- NOTE | 2022-06-13 20:46 | NURSING ---
Jevity running at 20/hr, residual checked at 2039, results 5 ml.
[2022-06-14] MEDS: Vancomycin IV 500 MG/100 ML BAG 100 MG IV ×2 (00:32→13:25)
--- NOTE | 2022-06-14 00:41 | NURSING ---
Jevity running at 20 ml/hr, residual checked, less than 5ml, did have xlg liquid bm.
[2022-06-14] MEDS: Dext 5%-0.45% NS 1,000 ML 75 ML IV ×2 (03:53→16:28)
--- NOTE | 2022-06-14 03:56 | NURSING ---
Jevity running at 20ml/hr, no residual noted at this time.
[2022-06-14 05:45] VITALS: BP 139/86; PULSE 90; RESP 18; TEMP 37.9; O2SAT 94
[2022-06-14 06:56] LABS: Absolute Lymphocyte Count 61.16 X10^3/uL (0.83-4.51); Absolute Neutrophil Count 1.3 X10^3/uL (2.0-7.7); Basophil# 0.03 X10^3/uL; Eosinophil# 0.03 X10^3/uL; Hematocrit 32.3 % (40-54); Lymphocyte # 61.16 X10^3/ul (0.83-4.51); Lymphocyte % 97.4 % (19-41); Mean Corp Hgb Conc 27.9 g/dL (32-36); Mean Corpuscular Volume 82.6 fL (80-94); Mean Platelet Vol. 12.1 fl (6.2-12.0); Monocyte# 0.28 X10^3/uL; Monocyte% 0.4 % (0-10); NRBC Flagged by Analyzer 0.1 % (0-5); Neutrophil # 1.29 X10^3/uL (2.7-7.7); Neutrophil % 2.2 % (47-70); POSITIVE COUNT YES; POSITIVE DIFFERENTIAL YES; POSITIVE MORPHOLOGY YES; Platelet Count 117 K/mm3 (150-450); RBC Distribution Width SD 63.1 fl (35.1-43.9); Red Blood Count 3.91 M/mm3 (4.6-6.2); White Blood Count 62.8 K/mm3 (4.4-11.0)
[2022-06-14 07:03] LABS: Differential Indicated SCAN CRITERIA MET
[2022-06-14 07:09] LABS: Anisocytosis 2+; Platelet Estimate SLT DEC (ADEQ)
[2022-06-14 07:31] LABS: Anion Gap 9 (5-15); BUN 14 mg/dL (7-18); BUN/Creat Ratio 16.5 RATIO (10-20); Chloride 110 mmol/L (98-107); Creatinine, Serum 0.85 mg/dL (0.70-1.30); EST Glomerular Filtration Rate 92 mL/min (>60); Est Glom Filt Rate - Afr Amer 112 mL/min (>60); Estimated Creatinine Clearance 55.84 ml/min; Glucose 128 mg/dL (74-106); Magnesium 2.2 mg/dL (1.6-2.6); Phosphorus 2.7 mg/dL (2.5-4.9); Potassium 3.5 mmol/L (3.5-5.1); Sodium Level 141 mmol/L (136-145)
--- NOTE | 2022-06-14 07:32 | PCM.PN.HOSP ---
Subjective Subjective Follow-up aspiration pneumonia ? Patient was readmitted from [facility] yesterday after being discharged. Did broaden patient antibiotic therapy admitted to regular nursing floor. Patient seen temperature max over the past 24 hours 100.3. Objective Data Objective Data Vital Signs: Vital Signs Temp Pulse Resp BP Pulse Ox O2 Del Method O2 Flow Rate 100.3 F H 90 18 139/86 H 94 Nasal Cannula 2.5 06/14/22 05:45 06/14/22 05:45 06/14/22 05:45 06/14/22 05:45 06/14/22 05:45 06/14/22 05:45 06/14/22 05:45 Oxygen Flow Rate (L/min) 2.5 Oxygen Delivery Method Nasal Cannula Weight: 56.019 kg Body Mass Index (BMI) 17.7 Intake & Output: Intake and Output for Last 24 Hours 06/12/22 06/13/22 06/14/22 23:59 23:59 23:59 Intake Total 834.0 / 834.0 1979.83 / 1978.83 Output Total 100 / 475 575 / 575 Balance 734.0 / 359.0 1404.83 / 1404.83 Medical Nutrition Assessment Dietitian: Malnutrition Criteria Met Start: 06/13/22 14:04 Freq: Status: Active Protocol: Document 06/13/22 14:04 CARMELA (Rec: 06/13/22 14:04 CARMELA [id number]) Nutrition Malnutrition Evidence of Malnutrition Exists Yes Malnutrition (severe): Chronic Evidenced By Suboptimal Energy Intake ( Severe),Weight Loss (Severe) Intake Problem Inadequate Oral Intake Etiology related to ongoing anorexia/ refusal of meals Signs/Symptoms as evidenced by less than 50% intake of meals since 06/05/22 Status Active Problem Clinical Problem Chronic Disease or Condition Related Malnutrition Etiology Severe protein-calorie malnutrition in the context of chronic disease related to difficulty swallowing and inadequate oral intake Signs/Symptoms related to fat/muscle loss in face, torso, upper/lower extremities per physical exam and estimated PO intake meeting < 75% of estimated nutrition needs for >1 month Status Active Problem Recommendation Dietitian Recommendations/Changes NPO per AIR TANK ASSEMBLER; Via PEG- Jevity 1 .5 at goal rate of 50mL/hour w / 150mL H2O flush every 4 hours to provide 1800 calories , 76.5 g protein, and 1812mL fluid/day. Given malnutrition, pt w/ significant risk for refeeding. Recommend start at 20mL/hour and slowly increase by 10mL every 12 hours as tolerated until goal rate is achieved. Close monitoring of electrolytes recommended as enteral nutrition is initiated . Daily wts. Lab / Micro Data Result Diagrams: 06/14/22 06:30 06/14/22 06:30 Labs: Laboratory Results - last 24 hr 06/13/22 10:00: WBC 60.4 H*, RBC 3.98 L, Hgb 9.1 L, Hct 32.8 L, MCV 82.4, MCH 22.9 L, MCHC 27.7 L, RDW Std Deviation 64.5 H, RDW Coeff of Florin 22.5 H, Plt Count 100 L, Neut % (Auto) Not Reportable, Absolute Neuts (auto) 1.2 L, Absolute Lymphs (auto) 59.20 H, Total Counted 100, Neutrophils % (Manual) 1 L, Lymphocytes % (Manual) 98 H*, Eosinophils % (Manual) 1, Diff Path Review September, Platelet Estimate ADEQUATE, Hypochromasia 1+, Poikilocytosis 1+, Anisocytosis 1+, Ovalocytes 1+ 06/13/22 10:00: Sodium 140, Potassium 3.8, Chloride 108 H, Carbon Dioxide 26.0, Anion Gap 6, BUN 15, Creatinine 0.90, Estim Creat Clear Calc 58.55, Est GFR (MDRD) Af Amer 105, Est GFR (MDRD) Non-Af 87, BUN/Creatinine Ratio 16.7, Glucose 92, Calcium 7.6 L 06/13/22 10:00: Lactic Acid 1.1 06/13/22 10:55: Urine Color Yellow, Urine Clarity Clear, Urine pH 5.0, Ur Specific [place] 1.025, Urine Protein 15 H, Urine Glucose (UA) Normal, Urine Ketones Negative, Urine Occult Blood Negative, Urine Nitrite Negative, Urine Bilirubin Negative, Urine Urobilinogen Normal, Ur Leukocyte Esterase Negative, Urine RBC 0 SEEN, Urine WBC 0 SEEN, Ur Squamous Epith Cells 0 SEEN, Urine Bacteria 0 SEEN, Urine Mucus 0 SEEN 06/13/22 13:29: MRSA (PCR) Negative 06/14/22 06:30: WBC 62.8 H*, RBC 3.91 L, Hgb 9.0 L, Hct 32.3 L, MCV 82.6, MCH 23.0 L, MCHC 27.9 L, RDW Std Deviation 63.1 H, RDW Coeff of Florin 22.0 H, Plt Count 117 L, MPV 12.1 H, Immature Gran % (Auto) 0.000, Neut % (Auto) 2.2 L, Lymph % (Auto) 97.4 H, [place] % (Auto) 0.4, Eos % (Auto) 0.0, Baso % (Auto) 0.0, Absolute Neuts (auto) 1.3 L, Absolute Lymphs (auto) 61.16 H, Nucleated RBC % 0.1, Diff Path Review September foll, Platelet Estimate SLT DEC, Anisocytosis 2+ 06/14/22 06:30: Sodium 141, Potassium 3.5, Chloride 110 H, Carbon Dioxide 22.0, Anion Gap 9, BUN 14, Creatinine 0.85, Estim Creat Clear Calc 55.84, Est GFR (MDRD) Af Amer 112, Est GFR (MDRD) Non-Af 92, BUN/Creatinine Ratio 16.5, Glucose 128 H, Calcium 7.0 L, Phosphorus 2.7, Magnesium 2.2 Micro: Microbiology 06/13/22 13:35 Mucosa - Nasopharyngeal Respiratory Panel (PCR) - Final Rhinovirus 06/13/22 10:55 Urine Catheter - Catheter Legionella Antigen - Final 06/13/22 10:55 Urine Catheter - Catheter Streptococcus pneumoniae Antigen (M - Final 06/13/22 09:55 Nasal Secretion SARS-CoV-2 & FLU Antigen (Rapid) - Final Radiography Diagnostic Testing: Radiology Impression Chest X-Ray 06/13/22 10:08 IMPRESSION: Interval worsening of bilateral patchy opacities concerning for multifocal pneumonia. Blunting of the right costophrenic angle suggestive of an effusion. Electronically Signed: Pauline Perdue MD at 10:28 EST , Physical Exam Narrative GENERAL: cooperative but frail looking HEENT: Atraumatic; poor oral dentition EYES; Anicteric, Normal Conjunctiva NECK; supple, normal thyroid, RESPIRATORY: Diminished to auscultation CARDIOVASCULAR:? Regular S1 S2, GI:? soft, normoactive bowel sounds, PEG tube in place : No Renal angle tenderness; EXTREMITIES:? No edema, no clubbing, MUSCULOSKELETAL:? no muscle wasting NEURO:? Awake;? no lateralizing signs. SKIN:? No Rash PSYCH; Flat? affect Assessment & Plan Assessment/Plan (1) Bilateral pneumonia: (2) Leukocytosis: PLAN: Plan Patient is a 81-year-old gentleman with history of chronic lymphocytic leukemia presented presented with fever a day after being discharged to an [facility] imaging studies did show Interval worsening of bilateral patchy opacities concerning for multifocal pneumonia. 1.? Recurrent bilateral pneumonia ? Patient is a significant risk for multiple drug-resistant organisms in addition to aspiration. Admitted to regular nursing floor started on broad-spectrum antibiotic therapy with vancomycin as well as Zosyn repeat cultures sent placed on supplemental oxygen titrated to keep saturation greater than 90. Patient progressed being monitored with CBC as well as oxygen requirement ? 06/14/2022; patient continues to spike fever with temperature maximum of 100.3. Did broaden patient antibiotic therapy following his readmission. 2.? Chronic lymphocytic leukemia ? May partly explain for patient markedly elevated WBC count.? Daily CBC ordered for monitoring 3.? Severe malnutrition r/t? to pt c/o difficulty swallowing and inability to consume adequate nutrition to meet est nutritional needs as evidenced [facility] w/ [employer] T[employer]SEMBLER to follow, pt report of wt loss (unsure amount/timeframe), BMI <15, obvious fat/muscle loss in face, torso, upper/lower extremies and po intake meeting < 75% of estimated nutrition needs.? Patient seen by dietitian recommendations reviewed. 4.? Dysphagia ?patient underwent PEG tube placement on 06/11/2022.? Tube feed initiated.? 5.? Thrombocytopenia ? May be related to patient underlying CLL patient is on Lovenox discontinued daily monitoring with CBC ordered 6.? Physical deconditioning - Requested for PT OT eval and social worker health services to assist with discharge planning 7. DVT prophylaxis ? Bilateral SCDs only given patient thrombocytopenia Time spent in the patient's overall evaluation,decision-making process, review of diagnostic data, adjustment of management, discussion with other providers, nursing nursing and ancillary staff involved in patient's care documentation, 38 Minutes Charges/Coding Visit Charges Inpatient E&M: 84427 Subs Hosp L2
[2022-06-14 10:43] VITALS: BP 126/88; PULSE 82; RESP 20; TEMP 36.4; O2SAT 94
[2022-06-14 16:24] VITALS: BP 151/93; PULSE 84; RESP 22; TEMP 37.8; O2SAT 96
[2022-06-14 22:10] VITALS: TEMP 39.2
[2022-06-14] MEDS: Acetaminophen 650 MG/20 ML UDC GT (22:18)
[2022-06-14 22:45] VITALS: BP 148/104; PULSE 90; RESP 18; TEMP 38.6; O2SAT 94
[2022-06-15] VITALS (8 sets, daily range): BP systolic 130–166; BP diastolic 90–107; PULSE 71–90; RESP 16–20; TEMP 36.5–37.2; O2SAT 92–95
[2022-06-15] MEDS: Jevity 1.5 1,000 ML 50 ML GT ×2 (01:15→23:41)
[2022-06-15] MEDS: Vancomycin IV 500 MG/100 ML BAG 100 MG IV ×2 (01:23→13:32)
--- NOTE | 2022-06-15 03:34 | PCM.RX.CS ---
Consult Pharmacy has been consulted to manage selected antiobiotic: Vancomycin Type of Consult: Follow-up Labs: Sodium 141 mmol/L (136-145) 06/14/22 06:30 Potassium 3.5 mmol/L (3.5-5.1) 06/14/22 06:30 Chloride 110 mmol/L (98-107) H 06/14/22 06:30 Carbon Dioxide 22.0 mmol/L (21.0-32.0) 06/14/22 06:30 Anion Gap 9 (5-15) 06/14/22 06:30 BUN 14 mg/dL (7-18) 06/14/22 06:30 Creatinine 0.85 mg/dL (0.70-1.30) 06/14/22 06:30 Est GFR (MDRD) Af Amer 112 mL/min (>60) 06/14/22 06:30 Est GFR (MDRD) Non-Af 92 mL/min (>60) 06/14/22 06:30 BUN/Creatinine Ratio 16.5 RATIO (10-20) 06/14/22 06:30 Glucose 128 mg/dL (74-106) H 06/14/22 06:30 Microbiology: Microbiology 06/13/22 13:35 Mucosa - Nasopharyngeal Respiratory Panel (PCR) - Final Rhinovirus 06/13/22 10:55 Urine Catheter - Catheter Legionella Antigen - Final 06/13/22 10:55 Urine Catheter - Catheter Streptococcus pneumoniae Antigen (M - Final 06/13/22 09:55 Nasal Secretion SARS-CoV-2 & FLU Antigen (Rapid) - Final Goal Trough: 15-20 mcg/mL Pharmacy Plan for Drug Dosing: Pharmacy Service will continue to monitor and adjust dosing as required. Follow-Up Labs: Trough Vancomycin Labs to be done on [date and time ordered]: TROUGH NOT DRAWN, RETIME FOR NEXT DOSE.
[2022-06-15 06:36] LABS: Absolute Neutrophil Count 1.1 X10^3/uL (2.0-7.7); Basophil# 0.02 X10^3/uL; Eosinophil# 0.05 X10^3/uL; Eosinophils% 0.1 % (0-5); Hematocrit 32.5 % (40-54); Hemoglobin 9.1 g/dL (13.0-16.5); Lymphocyte % 97.7 % (19-41); Mean Corpuscular Hgb 23.2 pg (27.0-32.0); Mean Corpuscular Volume 82.9 fL (80-94); Monocyte# 0.08 X10^3/uL; Monocyte% 0.1 % (0-10); NRBC Flagged by Analyzer 0 % (0-5); Neutrophil # 1.14 X10^3/uL (2.7-7.7); Neutrophil % 2.1 % (47-70); POSITIVE COUNT YES; POSITIVE DIFFERENTIAL YES; POSITIVE MORPHOLOGY YES; Platelet Count 114 K/mm3 (150-450); RBC Distribution Width CV 22.5 % (11.6-14.6); RBC Distribution Width SD 64.1 fl (35.1-43.9); Red Blood Count 3.92 M/mm3 (4.6-6.2); White Blood Count 55.8 K/mm3 (4.4-11.0)
[2022-06-15 06:55] LABS: Differential Indicated SCAN CRITERIA MET
[2022-06-15 07:06] LABS: Anisocytosis 2+; Platelet Estimate SLT DEC (ADEQ)
[2022-06-15 07:10] LABS: Anion Gap 8 (5-15); BUN 11 mg/dL (7-18); BUN/Creat Ratio 14.9 RATIO (10-20); Calcium,Total 7.2 mg/dL (8.5-10.1); Chloride 110 mmol/L (98-107); Creatinine, Serum 0.74 mg/dL (0.70-1.30); EST Glomerular Filtration Rate 108 mL/min (>60); Est Glom Filt Rate - Afr Amer 131 mL/min (>60); Estimated Creatinine Clearance 47.46 ml/min; Glucose 184 mg/dL (74-106); Sodium Level 140 mmol/L (136-145)
--- NOTE | 2022-06-15 08:07 | CASEMGMT ---
Social Work Pt daughter is HCPOA. Daughter was made aware that HCPOA/LW documents are not on file and could be brought in and dropped off at the medical records department, or with this SW. Pao voiced understanding. KRYSTEN Laws
--- NOTE | 2022-06-15 08:49 | PCM.PN.HOSP ---
Subjective Subjective Breathing well. Objective Data Objective Data Vital Signs: Vital Signs Temp Pulse Resp BP Pulse Ox O2 Del Method O2 Flow Rate 36.7 C 71 20 H 156/103 H 95 Nasal Cannula 3 06/15/22 05:00 06/15/22 05:00 06/15/22 05:00 06/15/22 05:00 06/15/22 05:00 06/15/22 05:00 06/15/22 05:00 Oxygen Flow Rate (L/min) 3 Oxygen Delivery Method Nasal Cannula Weight: 56.019 kg Body Mass Index (BMI) 17.7 Intake & Output: Intake and Output for Last 24 Hours 06/13/22 06/14/22 06/15/22 23:59 23:59 23:59 Intake Total 834.0 / 834.0 3374.33 / 3374.33 3001.33 / 3001.33 Output Total 100 / 475 875 / 1275 1100 / 1100 Balance 734.0 / 359.0 2499.33 / 2099.33 1901.33 / 1901.33 Medical Nutrition Assessment Dietitian: Malnutrition Criteria Met Start: 06/13/22 14:04 Freq: Status: Active Protocol: Document 06/14/22 12:11 AG (Rec: 06/14/22 12:11 [id number]) Nutrition Malnutrition Evidence of Malnutrition Exists Yes Malnutrition (severe): Chronic Evidenced By Suboptimal Energy Intake ( Severe),Weight Loss (Severe) Intake Problem Inadequate Oral Intake Etiology related to ongoing anorexia/ refusal of meals Signs/Symptoms as evidenced by less than 50% intake of meals since 06/05/22 Status Active Problem Clinical Problem Chronic Disease or Condition Related Malnutrition Etiology Severe protein-calorie malnutrition in the context of chronic disease related to difficulty swallowing and inadequate oral intake Signs/Symptoms related to fat/muscle loss in face, torso, upper/lower extremities per physical exam and estimated PO intake meeting < 75% of estimated nutrition needs for >1 month Status Active Problem Recommendation Dietitian Recommendations/Changes NPO; Continue via PEG- Jevity 1.5 at goal rate of 50mL/hour w/ 150mL H2O flush every 4 hours to provide 1800 calories , 76.5 g protein, and 1812mL fluid/day. Continue to increase by 10mL every 8-12 hours as tolerated until goal rate is achieved. Daily wts. Lab / Micro Data Result Diagrams: 06/15/22 06:05 06/15/22 06:05 Labs: Laboratory Results - last 24 hr 06/15/22 06:05: WBC 55.8 H*, RBC 3.92 L, Hgb 9.1 L, Hct 32.5 L, MCV 82.9, MCH 23.2 L, MCHC 28.0 L, RDW Std Deviation 64.1 H, RDW Coeff of Florin 22.5 H, Plt Count 114 L, Immature Gran % (Auto) 0.000, Neut % (Auto) 2.1 L, Lymph % (Auto) 97.7 H, [place]arro % (Auto) 0.1, Eos % (Auto) 0.1, Baso % (Auto) 0.0, Absolute Neuts (auto) 1.1 L, Absolute Lymphs (auto) 54.50 H, Nucleated RBC % 0, Diff Path Review September, Platelet Estimate SLT DEC, Anisocytosis 2+ 06/15/22 06:05: Sodium 140, Potassium 3.0 L, Chloride 110 H, Carbon Dioxide 22.0, Anion Gap 8, BUN 11, Creatinine 0.74, Estim Creat Clear Calc 47.46, Est GFR (MDRD) Af Amer 131, Est GFR (MDRD) Non-Af 108, BUN/Creatinine Ratio 14.9, Glucose 184 H, Calcium 7.2 L Micro: Microbiology 06/13/22 13:35 Mucosa - Nasopharyngeal Respiratory Panel (PCR) - Final Rhinovirus 06/13/22 10:55 Urine Catheter - Catheter Legionella Antigen - Final 06/13/22 10:55 Urine Catheter - Catheter Streptococcus pneumoniae Antigen (M - Final 06/13/22 09:55 Nasal Secretion SARS-CoV-2 & FLU Antigen (Rapid) - Final Physical Exam Const alert and no apparent distress Constitutional Narrative: weak voice, difficult to understand at time. HEENT HEENT Narrative: poor dentition. Resp Resp Narrative: coarse BS bilaterally. Cardio regular rate, regular rhythm, S1 normal heart sound and S2 normal heart sound GI normal to inspection, nondistended, normoactive bowel sounds, soft to palpation and non-tender Psych affect normal Assessment & Plan Assessment/Plan (1) Bilateral pneumonia: PLAN: Recurrent bilateral pneumonia Patient is a significant risk for multiple drug-resistant organisms in addition to aspiration. Admitted to regular nursing floor started on broad-spectrum antibiotic therapy with vancomycin as well as Zosyn repeat cultures sent placed on supplemental oxygen titrated to keep saturation greater than 90. Patient progressed being monitored with CBC as well as oxygen requirement 06/14/2022; patient continues to spike fever with temperature maximum of 100.3. Did broaden patient antibiotic therapy following his readmission. Complicated by rhinovirus (positive on the ) (2) Leukocytosis: PLAN: Chronic lymphocytic leukemia May partly explain for patient markedly elevated WBC count.? Daily CBC ordered for monitoring (3) Protein calorie malnutrition: PLAN: Severe malnutrition r/t? to pt c/o difficulty swallowing and inability to consume adequate nutrition to meet est nutritional needs as evidenced [facility]/ SEPTIC TANK INSTALLER to follow, pt report of wt loss (unsure amount/timeframe), BMI <15, obvious fat/muscle loss in face, torso, upper/lower extremies and po intake meeting < 75% of estimated nutrition needs.? Patient seen by dietitian recommendations reviewed. PLAN: Plan Chronic conditions Dysphagia?patient underwent PEG tube placement on 06/11/2022.? Tube feed initiated.? NPO. Thrombocytopenia? May be related to patient underlying CLL patient is on Lovenox discontinued daily monitoring with CBC ordered Physical deconditioning- Requested for PT OT eval and director of social services to assist with discharge planning DVT prophylaxis ? Bilateral SCDs only given patient thrombocytopenia Charges/Coding Visit Charges Inpatient E&M: 37095 Subs Hosp L2
[2022-06-15] MEDS: Cholecalciferol (VIT D3) 25 MCG TABLET (1,000 UNITS) GT (09:30)
--- NOTE | 2022-06-15 10:46 | CASEMGMT ---
JULIANNA CM Readmission Note Previous Admission:? 06/05/22-06/12/22?? Diagnosis:?bilat pneumonia?? DC Disposition: [facility] Current Admission? Current Diagnosis: aspiration pneumonia Pt dc'd on 06/12 to [facility] with rx for augmentin and azithromycin to finish in the next 24 hours. Pt had a peg placed on 06/11. Pt presented to ER with temp of 102 and white count of 60,000. Pt has a hx of CLL. Pt now placed on broad spectrum IV antibiotics. DC Plan: [facility] ?
[2022-06-15] MEDS: Acetaminophen 650 MG/20 ML UDC GT (12:07)
[2022-06-15 13:32] LABS: Vancomycin, Trough Level 12.6 ug/mL (5.0-15.0)
--- NOTE | 2022-06-15 14:40 | PCM.RX.CS ---
Consult Pharmacy has been consulted to manage selected antiobiotic: Vancomycin Type of Consult: Follow-up Labs: Sodium 140 mmol/L (136-145) 06/15/22 06:05 Potassium 3.0 mmol/L (3.5-5.1) L 06/15/22 06:05 Chloride 110 mmol/L (98-107) H 06/15/22 06:05 Carbon Dioxide 22.0 mmol/L (21.0-32.0) 06/15/22 06:05 Anion Gap 8 (5-15) 06/15/22 06:05 BUN 11 mg/dL (7-18) 06/15/22 06:05 Creatinine 0.74 mg/dL (0.70-1.30) 06/15/22 06:05 Est GFR (MDRD) Af Amer 131 mL/min (>60) 06/15/22 06:05 Est GFR (MDRD) Non-Af 108 mL/min (>60) 06/15/22 06:05 BUN/Creatinine Ratio 14.9 RATIO (10-20) 06/15/22 06:05 Glucose 184 mg/dL (74-106) H 06/15/22 06:05 Vancomycin Trough 12.6 ug/mL (5.0-15.0) 06/15/22 12:35 Microbiology: Microbiology 06/13/22 13:35 Mucosa - Nasopharyngeal Respiratory Panel (PCR) - Final Rhinovirus 06/13/22 10:55 Urine Catheter - Catheter Legionella Antigen - Final 06/13/22 10:55 Urine Catheter - Catheter Streptococcus pneumoniae Antigen (M - Final 06/13/22 09:55 Nasal Secretion SARS-CoV-2 & FLU Antigen (Rapid) - Final Goal Trough: 15-20 mcg/mL Pharmacy Plan for Drug Dosing: VANCOMYCIN LEVEL RECEIVED Current Vancomycin Dose: 500MG IV Q12H Number of Doses Received: 5, trough drawn prior to 5th total dose (Note: was not drawn prior to 4th dose as initially ordered, pharmacy had to re-time trough) Vancomycin Level: 12.6 Hours Since Last Dose: 11hr Renal Function: 0.74 Renal Function Trend: stable Vancomycin Plan/Comments: Patient had a trough drawn which resulted in a value of 12.6 (goal 15-20). Will increase dose slightly to 750mg IV q12hr to start 06/16/22 @0100. Pending Level: 06/17/22 @1230, prior to 4th dose of new regimen. Pharmacy Service will continue to monitor and adjust dosing as required.
--- NOTE | 2022-06-15 15:28 | CASEMGMT ---
Social Work SW called pt daughter, Pao, to discuss discharge plan. Pao stated pt and family would prefer pt to go to TCU if a bed becomes open by the time pt is medically ready. Otherwise, if no bed at TCU then back to [facility] would be the choice. Pao declined a list of SNF providers as pt is a re-admit and family is aware of choices. K[facility] referral [facility]. [facility] informed no beds would be open until over the next weekend. MD Ramos is unsure when pt will be medically ready at this point. KAT asked [facility] to keep pt on the list for TCU in the event that pt would be ready by the time a bed becomes available. KRYSTEN Laws
--- NOTE | 2022-06-15 15:41 | CHAPLAIN ---
Type of Pastoral Visit _x__ Initial Visit ___ Follow-up Visit ___ On-call Visit ___ General Patient Visit ___ Spiritual Assessment ___ Family Conference ___ Bereavement ___ Rapid Response ___ Code Blue ___ Other (describe below) Pastoral Care Referral From _x__ Patient _x__ Family ___ Nurse ___ Physician ___ Contracts Manager ___ Wash Tank Tender ___ Other (describe below) Sacrament/Intervention _x__ Active listening ___ Anointing ___ Jain ___ Bereavement ___ Communion ___ Caitlyn exploration ___ ___ Life review _x__ Prayer ___ Reconciliation ___ Sacrament of Sick _x__ Supportive presence ___ Wedding ___ Other (describe below) Pastoral Comments patient is a return patient from last week; spouse is at bedside; offer of support given; spouse does almost all of the talking and giving of information; spouse does answer questions in one word and welcomes prayer and presence
[2022-06-16] VITALS (7 sets, daily range): BP systolic 150–167; BP diastolic 90–104; PULSE 90–101; RESP 18–20; TEMP 36.4–37.4; O2SAT 90–96
[2022-06-16] MEDS: BMX LIQUID 180 ML PO (03:24)
[2022-06-16 05:58] LABS: Absolute Lymphocyte Count 56.12 X10^3/uL (0.83-4.51); Absolute Neutrophil Count 1.4 X10^3/uL (2.0-7.7); Basophil# 0.05 X10^3/uL; Basophil% 0.1 % (0-1); Eosinophil# 0.03 X10^3/uL; Eosinophils% 0.1 % (0-5); Hematocrit 32.8 % (40-54); Lymphocyte # 56.12 X10^3/ul (0.83-4.51); Lymphocyte % 97.3 % (19-41); Mean Corp Hgb Conc 27.4 g/dL (32-36); Mean Corpuscular Hgb 23.1 pg (27.0-32.0); Mean Corpuscular Volume 84.3 fL (80-94); Mean Platelet Vol. 11.8 fl (6.2-12.0); Monocyte% 0.2 % (0-10); NRBC Flagged by Analyzer 0.1 % (0-5); Neutrophil # 1.36 X10^3/uL (2.7-7.7); Neutrophil % 2.2 % (47-70); POSITIVE COUNT YES; POSITIVE DIFFERENTIAL YES; POSITIVE MORPHOLOGY YES; Platelet Count 139 K/mm3 (150-450); RBC Distribution Width CV 22.5 % (11.6-14.6); RBC Distribution Width SD 65.7 fl (35.1-43.9); Red Blood Count 3.89 M/mm3 (4.6-6.2)
[2022-06-16 06:23] LABS: Differential Indicated SCAN CRITERIA MET; White Blood Count 57.7 K/mm3 (4.4-11.0)
[2022-06-16 06:25] LABS: Anisocytosis 1+; Differential Comment SCANNED; Microcytosis 1+
[2022-06-16 06:47] LABS: ALB/GLOB Ratio 0.5 RATIO (0.9-2.4); AST(SGOT) 18 U/L (15-37); Alanine Aminotransfer ALT/SGPT 20 U/L (16-61); Albumin, Serum 1.5 g/dL (3.2-5.0); Alkaline Phosphatase 66 U/L (45-117); Anion Gap 7 (5-15); BUN 12 mg/dL (7-18); BUN/Creat Ratio 15.6 RATIO (10-20); Calcium,Total 7.5 mg/dL (8.5-10.1); Chloride 111 mmol/L (98-107); Creatinine, Serum 0.77 mg/dL (0.70-1.30); EST Glomerular Filtration Rate 104 mL/min (>60); Est Glom Filt Rate - Afr Amer 126 mL/min (>60); Estimated Creatinine Clearance 47.46 ml/min; Globulin 3.2 g/dL (2.2-4.2); Glucose 166 mg/dL (74-106); Potassium 3.3 mmol/L (3.5-5.1); Protein, Total 4.7 g/dL (6.4-8.2); Sodium Level 141 mmol/L (136-145)
--- NOTE | 2022-06-16 07:44 | PCM.PN.HOSP ---
Subjective Subjective Denies complaints. States that he wants get back in bed. Objective Data Objective Data Vital Signs: Vital Signs Temp Pulse Resp BP Pulse Ox O2 Del Method O2 Flow Rate 36.4 C L 101 H 18 155/98 H 90 Nasal Cannula 5 06/16/22 04:30 06/16/22 04:30 06/16/22 04:30 06/16/22 04:30 06/16/22 04:30 06/16/22 04:30 06/16/22 04:30 Oxygen Flow Rate (L/min) 5 Oxygen Delivery Method Nasal Cannula Weight: 56.019 kg Body Mass Index (BMI) 17.7 Intake & Output: Intake and Output for Last 24 Hours 06/14/22 06/15/22 06/16/22 23:59 23:59 23:59 Intake Total 3374.33 / 3374.33 4301.33 / 4301.33 815 / 815 Output Total 875 / 1275 1100 / 1100 Balance 2499.33 / 2099.33 3201.33 / 3201.33 815 / 815 Medical Nutrition Assessment Dietitian: Malnutrition Criteria Met Start: 06/13/22 14:04 Freq: Status: Active Protocol: Document 06/14/22 12:11 (Rec: 06/14/22 12:11 [id number]) Nutrition Malnutrition Evidence of Malnutrition Exists Yes Malnutrition (severe): Chronic Evidenced By Suboptimal Energy Intake ( Severe),Weight Loss (Severe) Intake Problem Inadequate Oral Intake Etiology related to ongoing anorexia/ refusal of meals Signs/Symptoms as evidenced by less than 50% intake of meals since 06/05/22 Status Active Problem Clinical Problem Chronic Disease or Condition Related Malnutrition Etiology Severe protein-calorie malnutrition in the context of chronic disease related to difficulty swallowing and inadequate oral intake Signs/Symptoms related to fat/muscle loss in face, torso, upper/lower extremities per physical exam and estimated PO intake meeting < 75% of estimated nutrition needs for >1 month Status Active Problem Recommendation Dietitian Recommendations/Changes NPO; Continue via PEG- Jevity 1.5 at goal rate of 50mL/hour w/ 150mL H2O flush every 4 hours to provide 1800 calories , 76.5 g protein, and 1812mL fluid/day. Continue to increase by 10mL every 8-12 hours as tolerated until goal rate is achieved. Daily wts. Lab / Micro Data Result Diagrams: 06/16/22 05:29 06/16/22 05:29 Labs: Laboratory Results - last 24 hr 06/15/22 12:35: Vancomycin Trough 12.6 06/16/22 05:29: WBC 57.7 H*, RBC 3.89 L, Hgb 9.0 L, Hct 32.8 L, MCV 84.3, MCH 23.1 L, MCHC 27.4 L, RDW Std Deviation 65.7 H, RDW Coeff of Florin 22.5 H, Plt Count 139 L, MPV 11.8, Immature Gran % (Auto) 0.100, Neut % (Auto) 2.2 L, Lymph % (Auto) 97.3 H, [place] % (Auto) 0.2, Eos % (Auto) 0.1, Baso % (Auto) 0.1, Absolute Neuts (auto) 1.4 L, Absolute Lymphs (auto) 56.12 H, Nucleated RBC % 0.1, Differential Comment SCANNED, Diff Path Review May foll, Anisocytosis 1+, Microcytosis 1+ 06/16/22 05:29: Sodium 141, Potassium 3.3 L, Chloride 111 H, Carbon Dioxide 23.0, Anion Gap 7, BUN 12, Creatinine 0.77, Estim Creat Clear Calc 47.46, Est GFR (MDRD) Af Amer 126, Est GFR (MDRD) Non-Af 104, BUN/Creatinine Ratio 15.6, Glucose 166 H, Calcium 7.5 L, Total Bilirubin 0.40, AST 18, ALT 20, Alkaline Phosphatase 66, Total Protein 4.7 L, Albumin 1.5 L, Globulin 3.2, Albumin/Globulin Ratio 0.5 L Micro: Microbiology 06/13/22 13:35 Mucosa - Nasopharyngeal Respiratory Panel (PCR) - Final Rhinovirus 06/13/22 10:55 Urine Catheter - Catheter Legionella Antigen - Final 06/13/22 10:55 Urine Catheter - Catheter Streptococcus pneumoniae Antigen (M - Final 06/13/22 09:55 Nasal Secretion SARS-CoV-2 & FLU Antigen (Rapid) - Final Physical Exam Const Constitutional Narrative: Cachectic. Afebrile. Up in chair. Speech is difficult to ascertain at times as he cannot completely enunciate his words. HEENT HEENT Narrative: Poor dentition Neck no lymphadenopathy Resp normal respiratory effort and no retractions Resp Narrative: Diminished in right lower lobe Cardio regular rate, regular rhythm, S1 normal heart sound and S2 normal heart sound GI normal to inspection, nondistended, normoactive bowel sounds, soft to palpation, non-tender and non-distended Extremity normal to inspection Assessment & Plan Assessment/Plan (1) Bilateral pneumonia: PLAN: Recurrent bilateral pneumonia Patient is a significant risk for multiple drug-resistant organisms in addition to aspiration. Admitted to regular nursing floor started on broad-spectrum antibiotic therapy with vancomycin as well as Zosyn repeat cultures sent placed on supplemental oxygen titrated to keep saturation greater than 90. Patient progressed being monitored with CBC as well as oxygen requirement 06/14/2022; patient continues to spike fever with temperature maximum of 100.3. Did broaden patient antibiotic therapy following his readmission. Complicated by rhinovirus (positive on the ) 06/16: Cultures been negative with exception of the rhinovirus. We will de-escalate therapy to amoxicillin/clavulanic acid. Treat for 5 more days (2) Leukocytosis: PLAN: 2/2 Chronic lymphocytic leukemia May partly explain for patient markedly elevated WBC count.? Daily CBC ordered for monitoring [facility] is a [facility] through his [facility]. Dating back at least to 2020, patient declined referral to hematology oncology. With the plasma cell infiltration in his gastrum, would recommend referral to oncology. Patient would likely not be a good candidate for any kind of aggressive therapy given his overall poor performance status. (3) Protein calorie malnutrition: PLAN: Severe malnutrition r/t? to pt c/o difficulty swallowing and inability to consume adequate nutrition to meet est nutritional needs as evidenced by need for [facility] altered diet w/ ADAPTED PHYSICAL EDUCATION AIDE to follow, pt report of wt loss (unsure amount/timeframe), BMI <15, obvious fat/muscle loss in face, torso, upper/lower extremies and po intake meeting < 75% of estimated nutrition needs.? Patient seen by dietitian recommendations reviewed. (4) Gastric ulcer: PLAN: Bx from the showed Polytypic plasma cells in gastric ulcer start PPI PLAN: Plan Chronic conditions Dysphagia?patient underwent PEG tube placement on 06/11/2022.? Tube feed initiated.? NPO. Thrombocytopenia? improved. Physical deconditioning- Requested for PT OT eval and social work msw to assist with discharge planning Medically stable for discharge to long-term facility. Patient overall with a very poor performance status compounded by multiple medical comorbidities. Long-term prognosis is guarded. Charges/Coding Visit Charges Inpatient E&M: 29148 Subs Hosp L2
[2022-06-16] MEDS: Cholecalciferol (VIT D3) 25 MCG TABLET (1,000 UNITS) GT (08:23)
[2022-06-16 09:05] LABS: Pathologist Review Reviewed
[2022-06-16 09:06] LABS: Pathologist Review Reviewed
[2022-06-16 09:06] LABS: Pathologist Review Reviewed
--- NOTE | 2022-06-16 09:55 | PCM.TXEXTCAR ---
Diet Diet Order/Speech Therapy: 06/14/22 09:13 Diet: Nothing Per Oral Is pt able to select menu?: No Routine Orders/Code Status Routine Lab Work: CBC and BMP Code Status: DNRCC-A (no intubation) Wound(s) coccyx: Wound Type: Pressure Injury Therapies Weight Bearing: Full weight bearing Physical Therapy: Eval and Treat Occupational Therapy: Eval and Treat Speech Therapy: Eval and Treat Problem/Diagnosis (1) Bilateral pneumonia: Status: Acute Code(s): J18.9 - Pneumonia, unspecified organism Plan: Recurrent bilateral pneumonia Patient is a significant risk for multiple drug-resistant organisms in addition to aspiration. Admitted to regular nursing floor started on broad-spectrum antibiotic therapy with vancomycin as well as Zosyn repeat cultures sent placed on supplemental oxygen titrated to keep saturation greater than 90. Patient progressed being monitored with CBC as well as oxygen requirement 06/14/2022; patient continues to spike fever with temperature maximum of 100.3. Did broaden patient antibiotic therapy following his readmission. Complicated by rhinovirus (positive on the ) 06/16: Cultures been negative with exception of the rhinovirus. We will de-escalate therapy to amoxicillin/clavulanic acid. Treat for 5 more days (2) Leukocytosis: Status: Acute Code(s): D72.829 - Elevated white blood cell count, unspecified Plan: 2/2 Chronic lymphocytic leukemia May partly explain for patient markedly elevated WBC count.? Daily CBC ordered for monitoring [facility] is a [facility] diagnosis [facility] through his PCP. Dating back at least to 2020, patient declined referral to hematology oncology. With the plasma cell infiltration in his gastrum, would recommend referral to oncology. Patient would likely not be a good candidate for any kind of aggressive therapy given his overall poor performance status. (3) Protein calorie malnutrition: Status: Acute Code(s): E46 - Unspecified protein-calorie malnutrition Plan: Severe malnutrition r/t? to pt c/o difficulty swallowing and inability to consume adequate nutrition to meet est nutritional needs as evidenced by need for [facility] altered diet w/ BUTTONHOLE MARKER to follow, pt report of wt loss (unsure amount/timeframe), BMI <15, obvious fat/muscle loss in face, torso, upper/lower extremies and po intake meeting < 75% of estimated nutrition needs.? Patient seen by dietitian recommendations reviewed. (4) Gastric ulcer: Status: Acute Code(s): K25.9 - Gastric ulcer, unspecified as acute or chronic, without hemorrhage or perforation Plan: Bx from the 12th showed Polytypic plasma cells in gastric ulcer start PPI Plan Chronic conditions Dysphagia?patient underwent PEG tube placement on 06/11/2022.? Tube feed initiated.? NPO. Thrombocytopenia? improved. Physical deconditioning- Requested for PT OT eval and social scientist to assist with discharge planning Medically stable for discharge to [facility] facility. Patient overall with a very poor performance status compounded by multiple medical comorbidities. Long-term prognosis is guarded. Allergies/Procedures Done in Hospital Allergies chocolate flavor Adverse Reaction (Verified 06/13/22 09:21) PT UNSURE OF REACTION Type of Care/Length of Stay Estimated LOS: Convalescent Care Less Than 30 days Type of Care Needed: Skilled Rehab Potential: Poor Prognosis: Poor Additional Orders/Day of Discharge Day of Discharge: 06/16/22 Dietary and Speech Recommendations Dietitian Recommendations/Changes: NPO; Continue via PEG- Jevity 1.5 at goal rate of 50mL/hour w/ 150mL H2O flush every 4 hours to provide 1800 calories, 76.5 g protein, and 1812mL fluid/day. Continue to increase by 10mL every 8-12 hours as tolerated until goal rate is achieved. Daily wts. Discharge Plan Admission Admit Date/Time: 06/13/22 11:11 Primary Reason for Your Visit: Pneumonia Attending Provider: Jorge Ramos Primary Care Provider: Andra Dasilva Consulting Providers: Camacho Mckeon Discharge Orders/Prescriptions Prescriptions: New acetaminophen 650 mg/20.3 mL Solution 650 mg G-tube Q6H PRN PRN (Reason: Pain 1-10 Or Fever>100.7) Qty: 609 0RF amoxicillin-pot clavulanate 250-62.5 mg/5 mL Suspension For Reconstitution 500 mg feeding tube BIDCM 5 Days Qty: 80 0RF pantoprazole [address] for susp in packet 40 mg feeding tube BID Qty: 30 0RF Continued lidocaine HCl [Lidocaine Viscous] 2 % solution 1 applic PO Q6H PRN (Reason: sore mouth) Rx Instructions: Mix half teaspoon with 1 teaspoon maalox and coat mouth 4 times daily as needed for sore mouth. cholecalciferol (vitamin D3) [Vitamin D3] 25 mcg (1,000 unit) Tablet 25 mcg PO DAILY lactose-reduced food with fibr Liquid 30 ml feeding tube CONT Rx Instructions: 30ml/hr, increase by 10ml every 12 hours if tolerated albuterol sulfate 2.5 mg /3 mL (0.083 %) solution for nebulization 2.5 mg inhalation Q2H PRN (Reason: Shortness of Breath/Wheezing) menthol-zinc oxide [Calmoseptine] 0.44-20.6 % ointment 1 applic topical TID Protocol: *Topical Application Instructions APPLICATION INSTRUCTIONS: carroll rectal area Discontinued Jevity 1.5 Musa 0.06 gram-1.5 kcal/mL Liquid 20 ml feeding tube Q48H Referrals / Follow Up: [facility] [Provider Group] - Within 1 Month Andra Dasilva MD [Primary Care Provider] - Within 2 Weeks Disposition Disposition (needs filled in before D/C Order can be placed): Senior Living Facility
--- NOTE | 2022-06-16 10:00 | CASEMGMT ---
Social Work MD Ramos updated that pt is medically ready to return to SNF. SW sent updates to [facility] for new precert as family stated yesterday this would be choice if no beds available in TCU. [facility] from [facility] states no beds open for another 4-5 days. KRYSTEN Laws
--- NOTE | 2022-06-16 10:05 | DS.PCM_ITS ---
Providers Date of Admission: 06/13/22 Primary Care Physician: Dr. Andra Dasilva MD Reason For Visit: ASPIRATION PNEUMONIA Diagnosis Discharge Diagnosis (1) Bilateral pneumonia: Status: Acute Code(s): J18.9 - Pneumonia, unspecified organism Plan: Recurrent bilateral pneumonia Patient is a significant risk for multiple drug-resistant organisms in addition to aspiration. Admitted to regular nursing floor started on broad-spectrum antibiotic therapy with vancomycin as well as Zosyn repeat cultures sent placed on supplemental oxygen titrated to keep saturation greater than 90. Patient progressed being monitored with CBC as well as oxygen requirement 06/14/2022; patient continues to spike fever with temperature maximum of 100.3. Did broaden patient antibiotic therapy following his readmission. Complicated by rhinovirus (positive on the ) 06/16: Cultures been negative with exception of the rhinovirus. We will de- escalate therapy to amoxicillin/clavulanic acid. Treat for 5 more days (2) Leukocytosis: Status: Acute Code(s): D72.829 - Elevated white blood cell count, unspecified Plan: 2/2 Chronic lymphocytic leukemia May partly explain for patient markedly elevated WBC count.? Daily CBC ordered for monitoring [facility] is a [facility] through his PCP. Dating back at least to 2020, patient declined referral to hematology oncology. With the plasma cell infiltration in his gastrum, would recommend referral to oncology. Patient would likely not be a good candidate for any kind of aggressive therapy given his overall poor performance status. (3) Protein calorie malnutrition: Status: Acute Code(s): E46 - Unspecified protein-calorie malnutrition Plan: Severe malnutrition r/t? to pt c/o difficulty swallowing and inability to consume adequate nutrition to meet est nutritional needs as evidenced by need for [facility] altered diet w/ ENT CONSULTANT to follow, pt report of wt loss (unsure amount/timeframe), BMI <15, obvious fat/muscle loss in face, torso, upper/lower extremies and po intake meeting < 75% of estimated nutrition needs.? Patient seen by dietitian recommendations reviewed. (4) Gastric ulcer: Status: Acute Code(s): K25.9 - Gastric ulcer, unspecified as acute or chronic, without hemorrhage or perforation Plan: Bx from the showed Polytypic plasma cells in gastric ulcer start PPI Plan Chronic conditions * Dysphagia?patient underwent PEG tube placement on 06/11/2022.? Tube feed initiated.? NPO. * Thrombocytopenia? improved. * Physical deconditioning- Requested for PT OT eval and professor of social work to assist with discharge planning Medically stable for discharge to half-way facility. Patient overall with a very poor performance status compounded by multiple medical comorbidities. Long-term prognosis is guarded. Medications at Discharge Home Medications cholecalciferol (vitamin D3) 25 mcg (1,000 unit) tablet (Vitamin D3) 25 mcg PO DAILY SUPPLEMENT 06/05/22 lidocaine HCl 2 % mucosal solution (Lidocaine Viscous) 1 applic PO Q6H PRN sore mouth 06/05/22 albuterol sulfate 2.5 mg/3 mL (0.083 %) solution for nebulization 2.5 mg inhalation Q2H PRN Shortness of Breath/Wheezing 06/13/22 lactose-reduced food with fiber oral liquid 30 ml feeding tube CONT SUPPLEMENT 06/13/22 menthol 0.44 %-zinc oxide 20.6 % topical ointment (Calmoseptine) 1 applic topical TID SKIN IRRITATION 06/13/22 acetaminophen 650 mg/20.3 mL oral solution 650 mg (20.3 mL) G-tube Q6H PRN PRN Pain 1-10 Or Fever>100.7 #609 mL 06/16/22 amoxicillin 250 mg-potassium clavulanate 62.5 mg/5 mL oral suspension 500 mg (8 mL) feeding tube BIDCM 5 days #80 mL 06/16/22 pantoprazole 40 mg granules delayed-release for susp in packet 40 mg feeding tube BID #30 ea 06/16/22 Hospital Course Operations None Procedures None Summary of Care Provided Minutes Spent on Discharge: 45 Medical Records Data Medical Nutrition Assessment Dietitian: Malnutrition Criteria Met Start: 06/13/22 14:04 Freq: Status: Active Protocol: Document 06/14/22 12:11 AG (Rec: 06/14/22 12:11 AG [id number]) Nutrition Malnutrition Evidence of Malnutrition Exists Yes Malnutrition (severe): Chronic Evidenced By Suboptimal Energy Intake ( Severe),Weight Loss (Severe) Intake Problem Inadequate Oral Intake Etiology related to ongoing anorexia/ refusal of meals Signs/Symptoms as evidenced by less than 50% intake of meals since 06/05/22 Status Active Problem Clinical Problem Chronic Disease or Condition Related Malnutrition Etiology Severe protein-calorie malnutrition in the context of chronic disease related to difficulty swallowing and inadequate oral intake Signs/Symptoms related to fat/muscle loss in face, torso, upper/lower extremities per physical exam and estimated PO intake meeting < 75% of estimated nutrition needs for >1 month Status Active Problem Recommendation Dietitian Recommendations/Changes NPO; Continue via PEG- Jevity 1.5 at goal rate of 50mL/hour w/ 150mL H2O flush every 4 hours to provide 1800 calories , 76.5 g protein, and 1812mL fluid/day. Continue to increase by 10mL every 8-12 hours as tolerated until goal rate is achieved. Daily wts. Weight / BMI Weight Weight: 56.019 kg Body Mass Index (BMI) 17.7 ABG / Lab / Microbiology Data Result Diagrams: 06/16/22 05:29 06/16/22 05:29 Laboratory: Laboratory Results - last 24 hr 06/13/22 10:00: Diff Path Review Reviewed 06/14/22 06:30: Diff Path Review Reviewed 06/15/22 06:05: Diff Path Review Reviewed 06/15/22 12:35: Vancomycin Trough 12.6 06/16/22 05:29: WBC 57.7 H*, RBC 3.89 L, Hgb 9.0 L, Hct 32.8 L, MCV 84.3, MCH 23.1 L, MCHC 27.4 L, RDW Std Deviation 65.7 H, RDW Coeff of Florin 22.5 H, Plt Count 139 L, MPV 11.8, Immature Gran % (Auto) 0.100, Neut % (Auto) 2.2 L, Lymph % (Auto) 97.3 H, [place] % (Auto) 0.2, Eos % (Auto) 0.1, Baso % (Auto) 0.1, Absolute Neuts (auto) 1.4 L, Absolute Lymphs (auto) 56.12 H, Nucleated RBC % 0.1, Differential Comment SCANNED, Diff Path Review May foll, Anisocytosis 1+, Microcytosis 1+ 06/16/22 05:29: Sodium 141, Potassium 3.3 L, Chloride 111 H, Carbon Dioxide 23.0, Anion Gap 7, BUN 12, Creatinine 0.77, Estim Creat Clear Calc 47.46, Est GFR (MDRD) Af Amer 126, Est GFR (MDRD) Non-Af 104, BUN/Creatinine Ratio 15.6, Glucose 166 H, Calcium 7.5 L, Total Bilirubin 0.40, AST 18, ALT 20, Alkaline Phosphatase 66, Total Protein 4.7 L, Albumin 1.5 L, Globulin 3.2, Albumin/Globulin Ratio 0.5 L Microbiology: Microbiology 06/13/22 09:53 Blood Culture (Wb) - Anticubital Left Blood Culture - Preliminary No growth in 48 hours. 06/13/22 10:00 Blood Culture (Wb) - Right Forearm Blood Culture - Preliminary No growth in 48 hours. 06/13/22 13:35 Mucosa - Nasopharyngeal Respiratory Panel (PCR) - Final Rhinovirus 06/13/22 10:55 Urine Catheter - Catheter Legionella Antigen - Final 06/13/22 10:55 Urine Catheter - Catheter Streptococcus pneumoniae Antigen (M - Final 06/13/22 09:55 Nasal Secretion SARS-CoV-2 & FLU Antigen (Rapid) - Final Meaningful Use Info Meaningful Use Diagnoses (Choose all that apply): None applicable Discharge Plan Admission Admit Date/Time: 06/13/22 11:11 Primary Reason for Your Visit: Pneumonia Attending Provider: Jorge Ramos Primary Care Provider: Andra Dasilva Consulting Providers: Camacho Mckeon Discharge Orders/Prescriptions Prescriptions: New acetaminophen 650 mg/20.3 mL Solution 650 mg G-tube Q6H PRN PRN (Reason: Pain 1-10 Or Fever>100.7) Qty: 609 0RF amoxicillin-pot clavulanate 250-62.5 mg/5 mL Suspension For Reconstitution 500 mg feeding tube BIDCM 5 Days Qty: 80 0RF pantoprazole [address] for susp in packet 40 mg feeding tube BID Qty: 30 0RF Continued lidocaine HCl [Lidocaine Viscous] 2 % solution 1 applic PO Q6H PRN (Reason: sore mouth) Rx Instructions: Mix half teaspoon with 1 teaspoon maalox and coat mouth 4 times daily as needed for sore mouth. cholecalciferol (vitamin D3) [Vitamin D3] 25 mcg (1,000 unit) Tablet 25 mcg PO DAILY lactose-reduced food with fibr Liquid 30 ml feeding tube CONT Rx Instructions: 30ml/hr, increase by 10ml every 12 hours if tolerated albuterol sulfate 2.5 mg /3 mL (0.083 %) solution for nebulization 2.5 mg inhalation Q2H PRN (Reason: Shortness of Breath/Wheezing) menthol-zinc oxide [Calmoseptine] 0.44-20.6 % ointment 1 applic topical TID Protocol: *Topical Application Instructions APPLICATION INSTRUCTIONS: carroll rectal area Discontinued Jevity 1.5 Musa 0.06 gram-1.5 kcal/mL Liquid 20 ml feeding tube Q48H Referrals / Follow Up: [facility] [Provider Group] - Within 1 Month Andra Dasilva MD [Primary Care Provider] - Within 2 Weeks Disposition Disposition (needs filled in before D/C Order can be placed): [facility] Facility Charges/Coding Visit Charges Inpatient E&M: 13050 Disch Hosp >30min
--- NOTE | 2022-06-16 10:41 | PHA.DC.MR ---
Pharmacy Service has performed discharge medication reconciliation for this patient. The patient's discharge medication list was reviewed for discrepancies and discrepancies were resolved. Home Medications cholecalciferol (vitamin D3) 25 mcg (1,000 unit) tablet (Vitamin D3) 25 mcg PO DAILY SUPPLEMENT 06/05/22 lidocaine HCl 2 % mucosal solution (Lidocaine Viscous) 1 applic PO Q6H PRN sore mouth 06/05/22 albuterol sulfate 2.5 mg/3 mL (0.083 %) solution for nebulization 2.5 mg inhalation Q2H PRN Shortness of Breath/Wheezing 06/13/22 lactose-reduced food with fiber oral liquid 30 ml feeding tube CONT SUPPLEMENT 06/13/22 menthol 0.44 %-zinc oxide 20.6 % topical ointment (Calmoseptine) 1 applic topical TID SKIN IRRITATION 06/13/22 acetaminophen 650 mg/20.3 mL oral solution 650 mg (20.3 mL) G-tube Q6H PRN PRN Pain 1-10 Or Fever>100.7 #609 mL 06/16/22 amoxicillin 250 mg-potassium clavulanate 62.5 mg/5 mL oral suspension 500 mg (8 mL) feeding tube BIDCM 5 days #80 mL 06/16/22 pantoprazole 40 mg granules delayed-release for susp in packet 40 mg feeding tube BID #30 ea 06/16/22
--- NOTE | 2022-06-16 10:42 | CASEMGMT ---
Social Work SW called pt daughter and HCPOA, Pao, to inform that pt is medically ready for discharge. KAT explained there are no beds on TCU. Pao shared that family is fine with pt returning to [place]. PLAN: [place], pending precert KRYSTEN Laws
[2022-06-16] MEDS: Amox/Clav 250mg/5ml Suspension 500 MG GT (17:04)
[2022-06-16] MEDS: Jevity 1.5 1,000 ML 50 ML GT (19:41)
[2022-06-16] MEDS: 0.9% Saline Lock 10 ML Syringe IV (23:39)
[2022-06-16] MEDS: hydrALAZINE 20 MG/ML Vial 5 MG IV (23:39)
[2022-06-17 03:30] VITALS: BP 155/100; PULSE 99; RESP 20; TEMP 36.8; O2SAT 96
--- NOTE | 2022-06-17 07:41 | PN.HOSP_ITS ---
Subjective Subjective Feels well. Denies complaints. Objective Data Objective Data Vital Signs: Vital Signs Temp Pulse Resp BP Pulse Ox O2 Del Method O2 Flow Rate 36.8 C 99 20 H 155/100 H 96 Nasal Cannula 5 06/17/22 03:30 06/17/22 03:30 06/17/22 03:30 06/17/22 03:30 06/17/22 03:30 06/17/22 03:30 06/17/22 03:30 Oxygen Flow Rate (L/min) 5 Oxygen Delivery Method Nasal Cannula Weight: 56.019 kg Body Mass Index (BMI) 17.7 Intake & Output: Intake and Output for Last 24 Hours 06/15/22 06/16/22 06/17/22 23:59 23:59 23:59 Intake Total 4301.33 / 4301.33 2185 / 2185 Output Total 1100 / 1100 Balance 3201.33 / 3201.33 2185 / 2185 Medical Nutrition Assessment Dietitian: Malnutrition Criteria Met Start: 06/13/22 14 :04 Freq: Status: Active Protocol: Document 06/14/22 12:11 (Rec: 06/14/22 12:11 [id number]) Nutrition Malnutrition Evidence of Malnutrition Exists Yes Malnutrition (severe): Chronic Evidenced By Suboptimal Energy Intake ( Severe),Weight Loss (Severe) Intake Problem Inadequate Oral Intake Etiology related to ongoing anorexia/ refusal of meals Signs/Symptoms as evidenced by less than 50% intake of meals since 06/05/22 Status Active Problem Clinical Problem Chronic Disease or Condition Related Malnutrition Etiology Severe protein-calorie malnutrition in the context of chronic disease related to difficulty swallowing and inadequate oral intake Signs/Symptoms related to fat/muscle loss in face, torso, upper/lower extremities per physical exam and estimated PO intake meeting < 75% of estimated nutrition needs for >1 month Status Active Problem Recommendation Dietitian Recommendations/Changes NPO; Continue via PEG- Jevity 1.5 at goal rate of 50mL/hour w/ 150mL H2O flush every 4 hours to provide 1800 calories , 76.5 g protein, and 1812mL fluid/day. Continue to increase by 10mL every 8-12 hours as tolerated until goal rate is achieved. Daily wts. Lab / Micro Data Result Diagrams: 06/16/22 05:29 06/16/22 05:29 Labs: Laboratory Results - last 24 hr 06/13/22 10:00: Diff Path Review Reviewed 06/14/22 06:30: Diff Path Review Reviewed 06/15/22 06:05: Diff Path Review Reviewed Micro: Microbiology 06/13/22 09:53 Blood Culture (Wb) - Anticubital Left Blood Culture - Preliminary No growth in 48 hours. 06/13/22 10:00 Blood Culture (Wb) - Right Forearm Blood Culture - Preliminary No growth in 48 hours. 06/13/22 13:35 Mucosa - Nasopharyngeal Respiratory Panel (PCR) - Final Rhinovirus 06/13/22 10:55 Urine Catheter - Catheter Legionella Antigen - Final 06/13/22 10:55 Urine Catheter - Catheter Streptococcus pneumoniae Antigen (M - Final 06/13/22 09:55 Nasal Secretion SARS-CoV-2 & FLU Antigen (Rapid) - Final Physical Exam Const alert and no apparent distress Constitutional Narrative: Weak voice HEENT head/scalp atraumatic HEENT Narrative: Temporal wasting. Poor dentition Resp normal respiratory effort, no retractions, no use of accessory muscles and clear to auscultation bilaterally Cardio regular rate, regular rhythm, S1 normal heart sound and S2 normal heart sound GI normal to inspection, nondistended, normoactive bowel sounds, soft to palpation, non-tender and non-distended Extremity normal to inspection Assessment & Plan Assessment/Plan (1) Bilateral pneumonia: PLAN: Recurrent bilateral pneumonia Patient is a significant risk for multiple drug-resistant organisms in addition to aspiration. Admitted to regular nursing floor started on broad-spectrum antibiotic therapy with vancomycin as well as Zosyn repeat cultures sent placed on supplemental oxygen titrated to keep saturation greater than 90. Patient progressed being monitored with CBC as well as oxygen requirement 06/14/2022; patient continues to spike fever with temperature maximum of 100.3. Did broaden patient antibiotic therapy following his readmission. Complicated by rhinovirus (positive on the ) 06/16: Cultures been negative with exception of the rhinovirus. We will de- escalate therapy to amoxicillin/clavulanic acid. Treat for 5 more days (2) Leukocytosis: PLAN: 2/2 Chronic lymphocytic leukemia May partly explain for patient markedly elevated WBC count.? Daily CBC ordered for monitoring [facility] PCP. Dating back at least to 2020, patient declined referral to hematology oncology. With the plasma cell infiltration in his gastrum, would recommend referral to oncology. Patient would likely not be a good candidate for any kind of aggressive therapy given his overall poor performance status. (3) Protein calorie malnutrition: PLAN: Severe malnutrition r/t? to pt c/o difficulty swallowing and inability to consume adequate nutrition to meet est nutritional needs as evidenced by need for [facility] altered diet w/ CUTTER OPERATOR HELPER to follow, pt report of wt loss (unsure amount/timeframe), BMI <15, obvious fat/muscle loss in face, torso, upper/lower extremies and po intake meeting < 75% of estimated nutrition needs.? Patient seen by dietitian recommendations reviewed. (4) Gastric ulcer: PLAN: Bx from the showed Polytypic plasma cells in gastric ulcer start PPI PLAN: Plan Chronic conditions * Dysphagia?patient underwent PEG tube placement on 06/11/2022.? Tube feed initiated.? NPO. * Thrombocytopenia? improved. * Physical deconditioning- Requested for PT OT eval and protective services social worker to assist with discharge planning Medically stable for discharge to [facility] facility. Patient overall w ith a very poor performance status compounded by multiple medical comorbidities. Long-term prognosis is guarded. Charges/Coding Visit Charges Inpatient E&M: 34570 Subs Hosp L2
[2022-06-17 08:29] VITALS: BP 144/94; PULSE 98; RESP 20; TEMP 36.8; O2SAT 90
--- NOTE | 2022-06-17 08:52 | CASEMGMT ---
Social Work SW reached out to [facility] via [place] for news of precert. Will continue to follow for updates. KRYSTEN Laws
[2022-06-17] MEDS: Cholecalciferol (VIT D3) 25 MCG TABLET (1,000 UNITS) GT (09:18)
[2022-06-17] MEDS: Amox/Clav 250mg/5ml Suspension 500 MG GT ×2 (09:21→16:50)
[2022-06-17 09:23] VITALS: O2SAT 90
[2022-06-17 09:41] LABS: Pathologist Review Reviewed
[2022-06-17] MEDS: Acetaminophen 650 MG/20 ML UDC GT (14:30)
[2022-06-17 14:51] VITALS: BP 142/94; PULSE 98; RESP 20; TEMP 37.7; O2SAT 91
[2022-06-17] MEDS: Jevity 1.5 1,000 ML 50 ML GT (18:51)
[2022-06-17 21:00] VITALS: BP 156/94; PULSE 88; RESP 19; TEMP 36.8; O2SAT 92
[2022-06-17] MEDS: 0.9% Saline Lock 10 ML Syringe IV (21:16)
[2022-06-18 06:00] VITALS: BP 153/99; PULSE 104; RESP 18; TEMP 37.7; O2SAT 95
--- NOTE | 2022-06-18 07:56 | PCM.PN.HOSP ---
Subjective Subjective Feels short of breath. Oxygen was off his face. Placed back on and his dyspnea improved. Objective Data Objective Data Vital Signs: Vital Signs Temp Pulse Resp BP Pulse Ox O2 Del Method O2 Flow Rate 37.7 C H 104 H 18 153/99 H 95 Nasal Cannula 5 06/18/22 06:00 06/18/22 06:00 06/18/22 06:00 06/18/22 06:00 06/18/22 06:00 06/18/22 06:00 06/18/22 06:00 Oxygen Flow Rate (L/min) 5 Oxygen Delivery Method Nasal Cannula Weight: 56.019 kg Body Mass Index (BMI) 17.7 Intake & Output: Intake and Output for Last 24 Hours 06/16/22 06/17/22 06/18/22 23:59 23:59 23:59 Intake Total 2185 / 2185 3307 / 3307 150 / 150 Balance 2185 / 2185 3307 / 3307 150 / 150 Medical Nutrition Assessment Dietitian: Malnutrition Criteria Met Start: 06/13/22 14:04 Freq: Status: Active Protocol: Document 06/14/22 12:11 AG (Rec: 06/14/22 12:11 AG [id number]) Nutrition Malnutrition Evidence of Malnutrition Exists Yes Malnutrition (severe): Chronic Evidenced By Suboptimal Energy Intake ( Severe),Weight Loss (Severe) Intake Problem Inadequate Oral Intake Etiology related to ongoing anorexia/ refusal of meals Signs/Symptoms as evidenced by less than 50% intake of meals since 06/05/22 Status Active Problem Clinical Problem Chronic Disease or Condition Related Malnutrition Etiology Severe protein-calorie malnutrition in the context of chronic disease related to difficulty swallowing and inadequate oral intake Signs/Symptoms related to fat/muscle loss in face, torso, upper/lower extremities per physical exam and estimated PO intake meeting < 75% of estimated nutrition needs for >1 month Status Active Problem Recommendation Dietitian Recommendations/Changes NPO; Continue via PEG- Jevity 1.5 at goal rate of 50mL/hour w/ 150mL H2O flush every 4 hours to provide 1800 calories , 76.5 g protein, and 1812mL fluid/day. Continue to increase by 10mL every 8-12 hours as tolerated until goal rate is achieved. Daily wts. Lab / Micro Data Result Diagrams: 06/16/22 05:29 06/16/22 05:29 Labs: Laboratory Results - last 24 hr 06/16/22 05:29: Diff Path Review Reviewed Micro: Microbiology 06/13/22 09:53 Blood Culture (Wb) - Anticubital Left Blood Culture - Preliminary No growth in 48 hours. 06/13/22 10:00 Blood Culture (Wb) - Right Forearm Blood Culture - Preliminary No growth in 48 hours. 06/13/22 13:35 Mucosa - Nasopharyngeal Respiratory Panel (PCR) - Final Rhinovirus 06/13/22 10:55 Urine Catheter - Catheter Legionella Antigen - Final 06/13/22 10:55 Urine Catheter - Catheter Streptococcus pneumoniae Antigen (M - Final 06/13/22 09:55 Nasal Secretion SARS-CoV-2 & FLU Antigen (Rapid) - Final Assessment & Plan Assessment/Plan (1) Bilateral pneumonia: PLAN: Recurrent bilateral pneumonia Patient is a significant risk for multiple drug-resistant organisms in addition to aspiration. Admitted to regular nursing floor started on broad-spectrum antibiotic therapy with vancomycin as well as Zosyn repeat cultures sent placed on supplemental oxygen titrated to keep saturation greater than 90. Patient progressed being monitored with CBC as well as oxygen requirement 06/14/2022; patient continues to spike fever with temperature maximum of 100.3. Did broaden patient antibiotic therapy following his readmission. Complicated by rhinovirus (positive on the ) 06/16: Cultures been negative with exception of the rhinovirus. We will de-escalate therapy to amoxicillin/clavulanic acid. Treat for 5 more days (2) Leukocytosis: PLAN: 2/2 Chronic lymphocytic leukemia May partly explain for patient markedly elevated WBC count.? Daily CBC ordered for monitoring CLL is a chronic diagnosis and through [facility] I have reviewed records through his PCP. Dating back at least to 2020, patient declined referral to hematology oncology. With the plasma cell infiltration in his gastrum, would recommend referral to oncology. Patient would likely not be a good candidate for any kind of aggressive therapy given his overall poor performance status. (3) Protein calorie malnutrition: PLAN: Severe malnutrition r/t? to pt c/o difficulty swallowing and inability to consume adequate nutrition to meet est nutritional needs as evidenced by [facility] w/ REAL ESTATE REP to follow, pt report of wt loss (unsure amount/timeframe), BMI <15, obvious fat/muscle loss in face, torso, upper/lower extremies and po intake meeting < 75% of estimated nutrition needs.? Patient seen by dietitian recommendations reviewed. (4) Gastric ulcer: PLAN: Bx from the showed Polytypic plasma cells in gastric ulcer start PPI PLAN: Plan Chronic conditions Dysphagia?patient underwent PEG tube placement on 06/11/2022.? Tube feed initiated.? NPO. Thrombocytopenia? improved. Physical deconditioning- Requested for PT OT eval and pediatric social worker to assist with discharge planning Medically stable for discharge to snf facility. Patient overall with a very poor performance status compounded by multiple medical comorbidities. Long-term prognosis is guarded. 06/18: Advanced care planning: Greater than 35 minutes discussed with the patient about his overall poor prognosis and my concern about him long-term. Acknowledged that he is currently stable and ready to be discharged, I expressed [employer] concerns about his long-term outlook given his frailty, weakness and malnutrition. I did recommend hospice. He wished for me to speak with his daughter. I spoke with his daughter, Pao, and told her the same and my recommendation for hospice. She is agreeable to speaking with hospice. She would like for the whole family to at least be present if feasible. We will place a consultation to hospice and to hold off on any transfer until patient has been evaluated by hospice. Charges/Coding Visit Charges Inpatient E&M: 44820 Subs Hosp L2 Procedures Hospitalists Procedures: 58721 Critial Care Addl 30 Min
[2022-06-18 08:00] VITALS: RESP 18
[2022-06-18] MEDS: BMX LIQUID 180 ML PO (08:55)
[2022-06-18] MEDS: Cholecalciferol (VIT D3) 25 MCG TABLET (1,000 UNITS) GT (08:58)
[2022-06-18] MEDS: Amox/Clav 250mg/5ml Suspension 500 MG GT ×2 (08:58→16:22)
[2022-06-18 09:01] VITALS: BP 155/98; PULSE 88; RESP 18; TEMP 37.4; O2SAT 98
--- NOTE | 2022-06-18 10:51 | CASEMGMT ---
Addendum entered by Stacey Duong 06/18/22 13:55: Social Work Return call from Peg at [facility] and [facility] plans to meet with pt and family today at 2pm. Per Peg, family is requesting evaluation for [facility]. Nursing updated. KRYSTEN Landeros Original Note: Social Work Per physician, pt and dgt Pao are in agreement with hospice referral. SW placed phone call to Pao who agrees to be the contact for hospice to arrange for a family meeting with [facility]. Referral faxed to [facility]. Phone call to [facility] and spoke with Bhavna and referral made. Hospice to reach out to pt dgt Pao to arrange meeting. KRYSTEN Carpio
[2022-06-18 14:00] VITALS: RESP 18
[2022-06-18] MEDS: Jevity 1.5 1,000 ML 50 ML GT (15:37)
--- NOTE | 2022-06-18 16:04 | CASEMGMT ---
Social Work KAT spoke with Marcos dev ops engineer. Pt and family signed with hospice and are electing to return home with hospice services. DME will need to be arranged in the home and this will not be done until tomorrow morning. KAT spoke with pt naeem Cedeno and requested that Pao call to floor tomorrow when DME has arrived and SW will set up transportation home. Pao agreeable. KAT updated [facility] that pt will be going home and to cancel referral. KRYSTEN Carpio
[2022-06-18 16:21] VITALS: BP 157/106; PULSE 85; RESP 18; TEMP 37.3; O2SAT 97
[2022-06-18 22:00] VITALS: BP 154/96; PULSE 92; RESP 18; TEMP 37.3; O2SAT 94
[2022-06-19 04:00] VITALS: BP 146/92; PULSE 92; RESP 18; TEMP 37.2; O2SAT 95
[2022-06-19 07:16] LABS: Absolute Lymphocyte Count 50.43 X10^3/uL (0.83-4.51); Absolute Neutrophil Count 1.1 X10^3/uL (2.0-7.7); Basophil# 0.02 X10^3/uL; Eosinophil# 0.04 X10^3/uL; Eosinophils% 0.1 % (0-5); Hematocrit 29.5 % (40-54); Hemoglobin 8.1 g/dL (13.0-16.5); Lymphocyte # 50.43 X10^3/ul (0.83-4.51); Lymphocyte % 97.4 % (19-41); Mean Corp Hgb Conc 27.5 g/dL (32-36); Mean Corpuscular Hgb 23.6 pg (27.0-32.0); Mean Platelet Vol. 11.1 fl (6.2-12.0); Monocyte# 0.13 X10^3/uL; Monocyte% 0.3 % (0-10); NRBC Flagged by Analyzer 0 % (0-5); Neutrophil # 1.12 X10^3/uL (2.7-7.7); Neutrophil % 2.1 % (47-70); POSITIVE COUNT YES; POSITIVE DIFFERENTIAL YES; POSITIVE MORPHOLOGY YES; Platelet Count 141 K/mm3 (150-450); RBC Distribution Width CV 23.3 % (11.6-14.6); RBC Distribution Width SD 70.5 fl (35.1-43.9); Red Blood Count 3.43 M/mm3 (4.6-6.2)
[2022-06-19 07:17] LABS: Differential Indicated SCAN CRITERIA MET
[2022-06-19 07:19] LABS: White Blood Count 51.8 K/mm3 (4.4-11.0)
[2022-06-19 07:48] LABS: ALB/GLOB Ratio 0.5 RATIO (0.9-2.4); AST(SGOT) 43 U/L (15-37); Alanine Aminotransfer ALT/SGPT 70 U/L (16-61); Albumin, Serum 1.5 g/dL (3.2-5.0); Alkaline Phosphatase 75 U/L (45-117); Anion Gap 4 (5-15); BUN 15 mg/dL (7-18); BUN/Creat Ratio 26.1 RATIO (10-20); Calcium,Total 7.4 mg/dL (8.5-10.1); Chloride 107 mmol/L (98-107); Creatinine, Serum 0.58 mg/dL (0.70-1.30); EST Glomerular Filtration Rate 145 mL/min (>60); Est Glom Filt Rate - Afr Amer 175 mL/min (>60); Estimated Creatinine Clearance 47.46 ml/min; Globulin 3.2 g/dL (2.2-4.2); Glucose 187 mg/dL (74-106); Potassium 3.9 mmol/L (3.5-5.1); Protein, Total 4.7 g/dL (6.4-8.2); Sodium Level 142 mmol/L (136-145)
[2022-06-19 08:07] LABS: Anisocytosis 1+; Bite Cell 1+; Howell-Jolly Body RARE; Smudge Cells 2+
--- NOTE | 2022-06-19 08:25 | PN.HOSP_ITS ---
Subjective Subjective no events. Objective Data Objective Data Vital Signs: Vital Signs Temp Pulse Resp BP Pulse Ox O2 Del Method O2 Flow Rate 37.2 C 92 18 146/92 H 95 Nasal Cannula 6 06/19/22 04:00 06/19/22 04:00 06/19/22 04:00 06/19/22 04:00 06/19/22 04:00 06/19/22 08:07 06/19/22 04:00 Oxygen Flow Rate (L/min) 6 Oxygen Delivery Method Nasal Cannula Weight: 56.019 kg Body Mass Index (BMI) 17.7 Intake & Output: Intake and Output for Last 24 Hours 06/17/22 06/18/22 06/19/22 23:59 23:59 23:59 Intake Total 3307 / 3307 1520 / 1520 Balance 3307 / 3307 1520 / 1520 Medical Nutrition Assessment Dietitian: Malnutrition Criteria Met Start: 06/13/22 14:04 Freq: Status: Active Protocol: Document 06/14/22 12:11 (Rec: 06/14/22 12:11 [id number]) Nutrition Malnutrition Evidence of Malnutrition Exists Yes Malnutrition (severe): Chronic Evidenced By Suboptimal Energy Intake ( Severe),Weight Loss (Severe) Intake Problem Inadequate Oral Intake Etiology related to ongoing anorexia/ refusal of meals Signs/Symptoms as evidenced by less than 50% intake of meals since 06/05/22 Status Active Problem Clinical Problem Chronic Disease or Condition Related Malnutrition Etiology Severe protein-calorie malnutrition in the context of chronic disease related to difficulty swallowing and inadequate oral intake Signs/Symptoms related to fat/muscle loss in face, torso, upper/lower extremities per physical exam and estimated PO intake meeting < 75% of estimated nutrition needs for >1 month Status Active Problem Recommendation Dietitian Recommendations/Changes NPO; Continue via PEG- Jevity 1.5 at goal rate of 50mL/hour w/ 150mL H2O flush every 4 hours to provide 1800 calories , 76.5 g protein, and 1812mL fluid/day. Continue to increase by 10mL every 8-12 hours as tolerated until goal rate is achieved. Daily wts. Lab / Micro Data Result Diagrams: 06/19/22 06:45 06/19/22 06:45 Labs: Laboratory Results - last 24 hr 06/19/22 06:45: WBC 51.8 H*, RBC 3.43 L, Hgb 8.1 L, Hct 29.5 L, MCV 86.0, MCH 23.6 L, MCHC 27.5 L, RDW Std Deviation 70.5 H, RDW Coeff of Florin 23.3 H, Plt Count 141 L, MPV 11.1, Immature Gran % (Auto) 0.100, Neut % (Auto) 2.1 L, Lymph % (Auto) 97.4 H, [place] % (Auto) 0.3, Eos % (Auto) 0.1, Baso % (Auto) 0.0, Absolu te Neuts (auto) 1.1 L, Absolute Lymphs (auto) 50.43 H, Nucleated RBC % 0, Differential Comment , Diff Path Review May foll, Smudge Cells 2+, Anisocytosis 1+, Foley-Abb[place] Bodies RARE, Bite Cells 1+ 06/19/22 06:45: Sodium 142, Potassium 3.9, Chloride 107, Carbon Dioxide 31.0, Anion Gap 4 L, BUN 15, Creatinine 0.58 L, Estim Creat Clear Calc 47.46, Est GFR (MDRD) Af Amer 175, Est GFR (MDRD) Non-Af 145, BUN/Creatinine Ratio 26.1 H, Glucose 187 H, Calcium 7.4 L, Total Bilirubin 0.30, AST 43 H, ALT 70 H, Alkaline Phosphatase 75, Total Protein 4.7 L, Albumin 1.5 L, Globulin 3.2, Albumin/Globulin Ratio 0.5 L Micro: Microbiology 06/13/22 10:00 Blood Culture (Wb) - Right Forearm Blood Culture - Final No growth in 5 days. 06/13/22 09:53 Blood Culture (Wb) - Anticubital Left Blood Culture - Final No growth in 5 days. 06/13/22 13:35 Mucosa - Nasopharyngeal Respiratory Panel (PCR) - Final Rhinovirus 06/13/22 10:55 Urine Catheter - Catheter Legionella Antigen - Final 06/13/22 10:55 Urine Catheter - Catheter Streptococcus pneumoniae Antigen (M - Final 06/13/22 09:55 Nasal Secretion SARS-CoV-2 & FLU Antigen (Rapid) - Final Physical Exam Const alert and no apparent distress Constitutional Narrative: cachectic. afebrile Resp normal respiratory effort and no retractions Cardio regular rate, regular rhythm, S1 normal heart sound and S2 normal heart sound Assessment & Plan Assessment/Plan (1) Bilateral pneumonia: PLAN: Recurrent bilateral pneumonia Patient is a significant risk for multiple drug-resistant organisms in addition to aspiration. Admitted to regular nursing floor started on broad-spectrum anti biotic therapy with vancomycin as well as Zosyn repeat cultures sent placed on supplemental oxygen titrated to keep saturation greater than 90. Patient progressed being monitored with CBC as well as oxygen requirement 06/14/2022; patient continues to spike fever with temperature maximum of 100.3. Did broaden patient antibiotic therapy following his readmission. Complicated by rhinovirus (positive on the ) 06/16: Cultures been negative with exception of the rhinovirus. We will de- escalate therapy to amoxicillin/clavulanic acid. Treat for 5 more days (2) Leukocytosis: PLAN: 2/ Chronic lymphocytic leukemia May partly explain for patient markedly elevated WBC count.? Daily CBC ordered for monitoring CLL is a [facility] through his PCP. Dating back at least to 2020, patient declined referral to hematology oncology. With the plasma cell infiltration in his gastrum, would recommend referral to oncology. Patient would likely not be a good candidate for any kind of aggressive therapy given his overall poor performance status. (3) Protein calorie malnutrition: PLAN: Severe malnutrition r/t? to pt c/o difficulty swallowing and inability to consume adequate nutrition to meet est nutritional needs as evidenced [facility] w/ TRANSPORTATION SECURITY SCREENER to follow, pt report of wt loss (unsure amount/timeframe), BMI <15, obvious fat/muscle loss in face, torso, upper/lower extremies and po intake meeting < 75% of estimated nutrition needs.? Patient seen by dietitian recommendations reviewed. (4) Gastric ulcer: PLAN: Bx from the showed Polytypic plasma cells in gastric ulcer start PPI PLAN: Plan Chronic conditions * Dysphagia?patient underwent PEG tube placement on 06/11/2022.? Tube feed initiated.? NPO. * Thrombocytopenia? improved. * Physical deconditioning- Requested for PT OT eval and manager social media to assist with discharge planning Medically stable for [facility] to [facility] facility. Patient overall with a very poor performance status compounded by multiple medical comorbidities. Long-term prognosis is guarded. 06/18: Discussed with the patient about his overall poor prognosis and my concern about him long-term. Acknowledged that he is currently stable and ready to be discharged, I expressed [employer] concerns about his long-term outlook given his frailty, weakness and malnutrition. I did recommend hospice. He wished for me to speak with his daughter. I spoke with his daughter, Pao, and told her the same and my recommendation for hospice. She is agreeable to speaking with hospice. She would like for the whole family to at least be present if feasible. We will place a consultation to hospice and to hold off on any transfer until patient has been evaluated by hospice. 06/19: dc to home w hospice services
[2022-06-19] MEDS: Amox/Clav 250mg/5ml Suspension 500 MG GT (09:03)
[2022-06-19] MEDS: 0.9% Saline Lock 10 ML Syringe IV (09:04)
[2022-06-19] MEDS: Cholecalciferol (VIT D3) 25 MCG TABLET (1,000 UNITS) GT (09:11)
[2022-06-19] MEDS: Jevity 1.5 1,000 ML 50 ML GT (09:16)
[2022-06-19 10:00] VITALS: BP 152/103; PULSE 87; RESP 18; TEMP 37.8; O2SAT 95
--- NOTE | 2022-06-19 11:13 | PCM.DC ---
Discharge Instructions Diet Discharge Diet: - (NPO. Jevity 1.5 at 50cc/h. Flush PEG with 100cc water 4x daily. ) Follow Up Care Test Results: Test results from this visit will be discussed in further detail at your follow-up appointment, if applicable. Discharge Plan Admission Admit Date/Time: 06/13/22 11:11 Primary Reason for Your Visit: Pneumonia Attending Provider: Jorge Ramos Primary Care Provider: Andra Dasilva Consulting Providers: Camacho Mckeon ; Breana Schafer ; Camacho Naqvi ; Edwige Graves ; Tammi Gil ; Darline Huerta ENGINE COWLING INSTALLER Discharge Orders/Prescriptions Prescriptions: New lidocaine HCl [Lidocaine Viscous] 2 % Solution 5 ml PO 4X/DAY PRN (Reason: SORE MOUTH) Qty: 600 0RF Jevity 1.5 Musa 0.06 gram-1.5 kcal/mL liquid 300 ml feeding tube Q6H 30 Days Qty: 9000 1RF morphine 10 mg/5 mL solution 5 mg PO Q4H PRN (Reason: dyspnea) 3 Days Qty: 100 0RF lorazepam [Lorazepam Intensol] 2 mg/mL concentrate 1 mg PO Q6H PRN (Reason: anxiety) Qty: 30 0RF Continued albuterol sulfate 2.5 mg /3 mL (0.083 %) solution for nebulization 2.5 mg inhalation Q2H PRN (Reason: Shortness of Breath/Wheezing) menthol-zinc oxide [Calmoseptine] 0.44-20.6 % ointment 1 applic topical TID Protocol: *Topical Application Instructions APPLICATION INSTRUCTIONS: carroll rectal area Discontinued lidocaine HCl [Lidocaine Viscous] 2 % solution 1 applic PO Q6H PRN (Reason: sore mouth) Rx Instructions: Mix half teaspoon with 1 teaspoon maalox and coat mouth 4 times daily as needed for sore mouth. cholecalciferol (vitamin D3) [Vitamin D3] 25 mcg (1,000 unit) Tablet 25 mcg PO DAILY lactose-reduced food with fibr Liquid 30 ml feeding tube CONT Rx Instructions: 30ml/hr, increase by 10ml every 12 hours if tolerated Jevity 1.5 Musa 0.06 gram-1.5 kcal/mL Liquid 20 ml feeding tube Q48H Referrals / Follow Up: [facility] [Provider Group] - Within 1 Month Andra Dasilva MD [Primary Care Provider] - Within 2 Weeks Disposition Disposition (needs filled in before D/C Order can be placed): Hospice in Home
--- NOTE | 2022-06-19 11:49 | CASEMGMT ---
Social Work SW received call from pt naeem Cedeno stating DME would be arranged by noon and requesting pt be transported at 1:00. Transportation arranged with [facility] for 1:00 pepper picker via cot. Discharge orders faxed to [facility] and phone call to Peg at hospice notifying of time of discharge. Return call to naeem Cedeno and confirmed pepper picker time of 1:00. Nursing updated. Disposition: Home with hospice KRYSTEN Landeros
--- NOTE | 2022-06-19 14:32 | CASEMGMT ---
Social Work KAT received phone call from Flora at [facility] [place] stating she has received a referral. KAT provided Nando with pt discharge disposition. KRYSTEN Landeros
[2022-06-19 15:39] LABS: Pathologist Review Reviewed
== END 2022-06-19 13:26 | disposition hospice, home (50) | DRG 193 ==
LOC: ED 11:17 → MS3 11:40
PROVIDERS: Admitting Provider Internal Medicine; Emergency Provider Emergency Medicine; PCP Internal Medicine
DX: J18.9 Pneumonia, unspecified organism (principal); E43 Unspecified severe protein-calorie malnutrition; C91.10 Chronic lymphocytic leukemia of B-cell type not having achieved remission; Z68.1 Body mass index [BMI] 19.9 or less, adult; D69.6 Thrombocytopenia, unspecified; K25.9 Gastric ulcer, unspecified as acute or chronic, without hemorrhage or perforation; B34.8 Other viral infections of unspecified site; Z93.1 Gastrostomy status; I10 Essential (primary) hypertension; R13.10 Dysphagia, unspecified; Z66 Do not resuscitate; Z80.3 Family history of malignant neoplasm of breast
CPT/HCPCS: 36415; 71045; 80048; 80053; 80202; 81001; 83605; 83735; 84100; 85025; 87040; 87428; 87449; 87633; 87641; 97110; 97162; 97166; 97530; 97535; 97803; 99285; J7030; J7050; P9612; A4216; J7799